=== PATIENT | female | born 1945 | race Caucasian/White ===

== ENCOUNTER 2017-10-04 18:15 | Emergency (ER) | payer MEDICARE, OTHER ==
[~2017-10-04] VITALS: Ht 165.1 cm; Wt 72.6 kg
[~2017-10-04 18:15] MED LIST: AMOCLA875 PO; BACID; CEFD300 PO; CEPH500 PO; CLARITIN10 MG PO; CLOT10 SS; CYCL10; CYCL10 PO; DEXILANT PO; DEXL60CA3 PO; DOXA4; DOXA4 PO; Dazidox10 MG PO; FOLI1 PO; Flonase 0.05% N16 GM; HYDACE25S PR; HYDACE5325 PO; HYDCHL50; HYDSUL200 PO; K-Dur10 MEQ PO; LEVFLO500 PO; LEVO750 PO; LOSA50 PO; META800; META800 PO; METO10; METO50ER; METO50ER PO; METOTREXATE; METPRE4DP PO; METTREX2.5 PO; MOMENI; NABU500; NABU500 PO; NITR100CA PO; OMEP20ER; OMEP20ER PO; OMEP40CA12 PO; OXYC5 PO; PATADAY EYE DROPS; PHENA100 PO; PHENA200 PO; POTA10T; POTA10T PO; PRED1 PO; PRED10 PO; PRED20 PO; PREG50 PO; PROM25 PO; Percocet 5-3251 EACH PO; SPIR25; SPIR25 PO; TOLT4; TOLT4 PO; VALS80; Zofran Odt4 MG PO; Zofran4 MG PO
[2017-10-04 19:05] LABS: BASOPHILS ABSOLUTE AUTO 0.04 K/mm3 (0.00-0.23); BASOPHILS PERCENT AUTO 0 % (0-2); EOSINOPHILS ABSOLUTE AUTO 0.02 K/mm3 (0.00-0.68); EOSINOPHILS PERCENT AUTO 0 % (0-6); Hematocrit 47.1 % (33.0-51.0); Hemoglobin 16.2 g/dL (11.5-16.0); IMMATURE GRAN ABSOLUTE AUTO 0.05 K/mm3 (0.00-0.10); IMMATURE GRAN PERCENT AUTO 0 % (0-1); LYMPHOCYTES ABSOLUTE AUTO 1.54 K/mm3 (0.84-5.20); LYMPHOCYTES PERCENT AUTO 13 % (21-46); MONOCYTES ABSOLUTE AUTO 0.98 K/mm3 (0.16-1.47); MONOCYTES PERCENT AUTO 8 % (4-13); Mean Corpuscular HGB 32.9 pg (26.0-34.0); Mean Corpuscular HGB Conc 34.4 g/dL (31.5-36.5); Mean Corpuscular Volume 96 fL (80-100); Mean Platelet Volume 8.8 fL (9.1-12.4); NEUTROPHILS PERCENT AUTO 79 % (41-73); Platelet Count 196 K/mm3 (150-400); RDW Coefficient Variation 14.8 % (11.7-14.2); RDW Standard Deviation 51.4 fL (35.1-46.3); Red Blood Cell Count 4.92 M/mm3 (3.80-5.20); White Blood Cell Count 12.23 K/mm3 (4.00-11.30)
[2017-10-04 19:26] LABS: Alanine Aminotransfer (ALT/SGP 15 U/L (12-78); Albumin/Globulin Ratio 1.2 (0.8-1.8); Alk Phos 39 U/L (50-136); Anion Gap 14 mmol/L (6-16); Aspartate Aminotrans (AST/SGOT 49 U/L (12-37); Bilirubin, Total 0.9 mg/dL (0.1-1.0); Blood Urea Nitrogen 11 mg/dL (8-24); Bun/Creatinine Ratio 13.8 (12.0-20.0); CO2, Blood 22 mmol/L (21-32); Chloride, Blood 102 mmol/L (98-108); Globulin, Blood 3.3 g/dL (2.2-4.0); Glomerular Filtration Rate >60 (60-); Glucose, Blood 93 mg/dL (70-99); Potassium, Blood 3.6 mmol/L (3.5-5.5); Sodium, Blood 138 mmol/L (136-145); Total Protein, Blood 7.3 g/dL (6.4-8.2)
[2017-10-04] MEDS ORDERED: POTA20PAC (23:42)
[2017-10-04] MEDS ORDERED: BENTYL PO (23:43)
[2017-10-04] MEDS ORDERED: BENEFIBER PO (23:43)
[2017-10-04] MEDS ORDERED: MAGOXI400 PO (23:44)
[2017-10-04] MEDS ORDERED: META800 PO (23:45)
[2017-10-04] MEDS ORDERED: VOLTAREN TOP (23:45)
[2017-10-04] MEDS ORDERED: PANT40 PO (23:46)
[2017-10-04] MEDS ORDERED: METTREX2.5 PO (23:47)
[2017-10-04] MEDS ORDERED: METO100ER PO (23:48)
[2017-10-04] MEDS ORDERED: FOLI1 PO (23:48)
[2017-10-04] MEDS ORDERED: NABU500 PO (23:48)
[2017-10-04] MEDS ORDERED: ALLO300 PO (23:48)
[2017-10-04] MEDS ORDERED: HYDSUL200 PO (23:49)
[2017-10-04] MEDS ORDERED: CYCL10 PO (23:50)
[2017-10-04] MEDS ORDERED: LEFL20 PO (23:50)
[2017-10-04] MEDS ORDERED: ALBU90OI6 INH (23:50)
[2017-10-04] MEDS ORDERED: SPIR25 PO (23:51)
[2017-10-04] MEDS ORDERED: PREG75 PO (23:51)
[2017-10-04 23:57] LABS: Source, Urine Clean Catch
[2017-10-05] LABS: Appearance, Urine Clear (Clear); Blood, Urine 1+ (Neg); Color, Urine Amber (P-Yellow); Glucose Qualitative, Urine 1+ (Neg); Ketones, Urine 3+ (Neg); Leukocyte Esterase, Urine 2+ (Neg); Nitrite, Urine Neg (Neg); Protein, Urine 3+ (Neg); Urobilinogen, Urine 2+ (Normal)
[2017-10-05 00:01] LABS: Bilirubin, Urine 2+ (Neg)
[2017-10-05 00:06] LABS: Red Blood Cells, Urine 0-2 /hpf (0-2); Squamous Epithelial Cells Few /hpf (Few)
[2017-10-05 00:07] LABS: Bacteria Many /hpf
[2017-10-05] MEDS ORDERED: CEPH500 PO (03:33)
[2017-10-05] MEDS ORDERED: Zofran Odt4 MG PO (03:33)
== END 2017-10-05 03:58 | disposition home or self-care (01) ==
LOC: ER 18:15
PROVIDERS: Emergency Medicine
DX: N39.0 Urinary tract infection, site not specified (principal); Z88.2 Allergy status to sulfonamides; Z88.5 Allergy status to narcotic agent; Z79.899 Other long term (current) drug therapy; Z79.52 Long term (current) use of systemic steroids; Z79.2 Long term (current) use of antibiotics; I10 Essential (primary) hypertension
CPT/HCPCS: 36415; 71046; 80053; 81001; 83605; 83690; 85025; 87040; 87086; 93005; 93010; 96361; 96374; 96375; 96376; 99284; J2405; J2550; J7030

== ENCOUNTER 2017-10-07 12:59 | Emergency (ER) | payer MEDICARE, OTHER ==
[~2017-10-07] VITALS: Ht 165.1 cm; Wt 76.2 kg
[~2017-10-07 12:59] MED LIST changes: +ALBU90OI6 INH; +ALLO300 PO; +BENEFIBER PO; +BENTYL PO; +LEFL20 PO; +MAGOXI400 PO; +METO100ER PO; +PANT40 PO; +POTA20PAC; +PREG75 PO; +VOLTAREN TOP
[2017-10-07 14:45] LABS: BASOPHILS ABSOLUTE AUTO 0.04 K/mm3 (0.00-0.23); BASOPHILS PERCENT AUTO 1 % (0-2); EOSINOPHILS ABSOLUTE AUTO 0.03 K/mm3 (0.00-0.68); EOSINOPHILS PERCENT AUTO 0 % (0-6); Hematocrit 42.6 % (33.0-51.0); Hemoglobin 14.3 g/dL (11.5-16.0); IMMATURE GRAN ABSOLUTE AUTO 0.02 K/mm3 (0.00-0.10); IMMATURE GRAN PERCENT AUTO 0 % (0-1); LYMPHOCYTES ABSOLUTE AUTO 1.45 K/mm3 (0.84-5.20); LYMPHOCYTES PERCENT AUTO 17 % (21-46); MONOCYTES ABSOLUTE AUTO 0.75 K/mm3 (0.16-1.47); MONOCYTES PERCENT AUTO 9 % (4-13); Mean Corpuscular HGB 32.5 pg (26.0-34.0); Mean Corpuscular HGB Conc 33.6 g/dL (31.5-36.5); Mean Corpuscular Volume 97 fL (80-100); Mean Platelet Volume 8.5 fL (9.1-12.4); NEUTROPHILS ABSOLUTE AUTO 6.46 K/mm3 (1.96-9.15); NEUTROPHILS PERCENT AUTO 74 % (41-73); Platelet Count 207 K/mm3 (150-400); RDW Coefficient Variation 14.7 % (11.7-14.2); RDW Standard Deviation 51.9 fL (35.1-46.3); White Blood Cell Count 8.75 K/mm3 (4.00-11.30)
[2017-10-07 14:58] LABS: Alanine Aminotransfer (ALT/SGP 16 U/L (12-78); Albumin, Blood 3.8 g/dL (3.4-5.0); Albumin/Globulin Ratio 1.1 (0.8-1.8); Alk Phos 32 U/L (50-136); Anion Gap 8 mmol/L (6-16); Aspartate Aminotrans (AST/SGOT 47 U/L (12-37); Bilirubin, Total 0.6 mg/dL (0.1-1.0); Blood Urea Nitrogen 10 mg/dL (8-24); Bun/Creatinine Ratio 13.8 (12.0-20.0); CO2, Blood 27 mmol/L (21-32); Calcium, Blood 9.1 mg/dL (8.5-10.1); Chloride, Blood 106 mmol/L (98-108); Creatinine, Blood 0.73 mg/dL (0.40-1.00); Globulin, Blood 3.4 g/dL (2.2-4.0); Glomerular Filtration Rate >60 (60-); Glucose, Blood 87 mg/dL (70-99); Potassium, Blood 3.1 mmol/L (3.5-5.5); Sodium, Blood 141 mmol/L (136-145); Total Protein, Blood 7.2 g/dL (6.4-8.2)
[2017-10-07] MEDS ORDERED: PROM25 PO (19:38)
== END 2017-10-07 20:47 | disposition home or self-care (01) ==
LOC: ER 12:59
PROVIDERS: Emergency Medicine
DX: R11.2 Nausea with vomiting, unspecified (principal); R19.7 Diarrhea, unspecified; I10 Essential (primary) hypertension; Z88.2 Allergy status to sulfonamides; Z88.5 Allergy status to narcotic agent; Z79.899 Other long term (current) drug therapy
CPT/HCPCS: 36415; 74177; 80053; 83690; 85025; 96365; 96366; 96375; 96376; 99284; J2001; J2405; J2550; J3480; J7030; Q9967

== ENCOUNTER 2017-12-04 13:43 | Emergency (ER) | payer MEDICARE, OTHER ==
[~2017-12-04] VITALS: Ht 165.1 cm; Wt 74.8 kg
[2017-12-04 14:43] LABS: BASOPHILS ABSOLUTE AUTO 0.05 K/mm3 (0.00-0.23); BASOPHILS PERCENT AUTO 0 % (0-2); EOSINOPHILS ABSOLUTE AUTO 0.03 K/mm3 (0.00-0.68); EOSINOPHILS PERCENT AUTO 0 % (0-6); Hematocrit 38.5 % (33.0-51.0); Hemoglobin 12.9 g/dL (11.5-16.0); IMMATURE GRAN ABSOLUTE AUTO 0.06 K/mm3 (0.00-0.10); IMMATURE GRAN PERCENT AUTO 0 % (0-1); LYMPHOCYTES ABSOLUTE AUTO 2.93 K/mm3 (0.84-5.20); LYMPHOCYTES PERCENT AUTO 21 % (21-46); MONOCYTES ABSOLUTE AUTO 1.21 K/mm3 (0.16-1.47); MONOCYTES PERCENT AUTO 9 % (4-13); Mean Corpuscular HGB 32.3 pg (26.0-34.0); Mean Corpuscular HGB Conc 33.5 g/dL (31.5-36.5); Mean Corpuscular Volume 96 fL (80-100); Mean Platelet Volume 9.2 fL (9.1-12.4); NEUTROPHILS ABSOLUTE AUTO 9.46 K/mm3 (1.96-9.15); NEUTROPHILS PERCENT AUTO 69 % (41-73); Platelet Count 232 K/mm3 (150-400); RDW Coefficient Variation 14.2 % (11.7-14.2); RDW Standard Deviation 50.2 fL (35.1-46.3); White Blood Cell Count 13.74 K/mm3 (4.00-11.30)
[2017-12-04 14:58] LABS: Bun/Creatinine Ratio 15.3 (12.0-20.0); C-Reactive Protein, High Sens. 0.525 mg/L (0.000-3.000); Calcium, Blood 8.6 mg/dL (8.5-10.1); Creatinine, Blood 0.98 mg/dL (0.40-1.00); Potassium, Blood 3.7 mmol/L (3.5-5.5)
[2017-12-04] MEDS ORDERED: Percocet 5-3251 EACH PO (17:27)
[2017-12-04] MEDS ORDERED: GABA300 PO (17:27)
[2017-12-04] MEDS ORDERED: LIDO700A20 TOP (17:27)
== END 2017-12-04 17:43 | disposition home or self-care (01) ==
LOC: ER 13:43
PROVIDERS: Emergency Medicine
DX: M54.16 Radiculopathy, lumbar region (principal); M16.12 Unilateral primary osteoarthritis, left hip; I10 Essential (primary) hypertension; Z88.1 Allergy status to other antibiotic agents; Z88.8 Allergy status to other drugs, medicaments and biological substances; Z88.2 Allergy status to sulfonamides; Z88.5 Allergy status to narcotic agent; Z79.899 Other long term (current) drug therapy
CPT/HCPCS: 36415; 72131; 73700; 80048; 85025; 85651; 86141; 96374; 99284; J2405

== ENCOUNTER 2017-12-13 17:04 | Inpatient (IN) | payer MEDICARE, OTHER ==
[~2017-12-13] VITALS: Ht 165.1 cm; Wt 73.5 kg
[~2017-12-13 17:04] MED LIST changes: +GABA300 PO; +LIDO700A20 TOP
[2017-12-13 18:20] LABS: BASOPHILS ABSOLUTE AUTO 0.04 K/mm3 (0.00-0.23); BASOPHILS PERCENT AUTO 0 % (0-2); EOSINOPHILS ABSOLUTE AUTO 0.02 K/mm3 (0.00-0.68); EOSINOPHILS PERCENT AUTO 0 % (0-6); Hematocrit 44.1 % (33.0-51.0); Hemoglobin 15.4 g/dL (11.5-16.0); IMMATURE GRAN ABSOLUTE AUTO 0.08 K/mm3 (0.00-0.10); IMMATURE GRAN PERCENT AUTO 1 % (0-1); LYMPHOCYTES ABSOLUTE AUTO 1.48 K/mm3 (0.84-5.20); LYMPHOCYTES PERCENT AUTO 10 % (21-46); MONOCYTES ABSOLUTE AUTO 1.23 K/mm3 (0.16-1.47); MONOCYTES PERCENT AUTO 8 % (4-13); Mean Corpuscular HGB 32.5 pg (26.0-34.0); Mean Corpuscular HGB Conc 34.9 g/dL (31.5-36.5); Mean Platelet Volume 8.8 fL (9.1-12.4); NEUTROPHILS ABSOLUTE AUTO 12.03 K/mm3 (1.96-9.15); NEUTROPHILS PERCENT AUTO 81 % (41-73); Platelet Count 271 K/mm3 (150-400); RDW Coefficient Variation 13.6 % (11.7-14.2); RDW Standard Deviation 46.5 fL (35.1-46.3); Red Blood Cell Count 4.74 M/mm3 (3.80-5.20); White Blood Cell Count 14.88 K/mm3 (4.00-11.30)
[2017-12-13 18:22] LABS: Mean Corpuscular Volume 93 fL (80-100)
[2017-12-13 18:51] LABS: Alanine Aminotransfer (ALT/SGP 16 U/L (12-78); Albumin, Blood 3.5 g/dL (3.4-5.0); Alk Phos 48 U/L (50-136); Anion Gap 13 mmol/L (6-16); Aspartate Aminotrans (AST/SGOT 42 U/L (12-37); Bilirubin, Total 0.7 mg/dL (0.1-1.0); Blood Urea Nitrogen 12 mg/dL (8-24); Bun/Creatinine Ratio 13.2 (12.0-20.0); CO2, Blood 25 mmol/L (21-32); Calcium, Blood 9.5 mg/dL (8.5-10.1); Chloride, Blood 94 mmol/L (98-108); Creatinine, Blood 0.91 mg/dL (0.40-1.00); Globulin, Blood 3.5 g/dL (2.2-4.0); Glomerular Filtration Rate >60 (60-); Glucose, Blood 99 mg/dL (70-99); Potassium, Blood 3.8 mmol/L (3.5-5.5); Sodium, Blood 132 mmol/L (136-145)
[2017-12-13 18:53] LABS: Troponin I 0.183 ng/mL (0.000-0.040)
[2017-12-13 21:59] LABS: Troponin I 0.196 ng/mL (0.000-0.040)
[2017-12-13] MEDS ORDERED: POTCHL20ER PO (22:06)
[2017-12-13] MEDS ORDERED: ONDA8 PO (22:12)
[2017-12-13] MEDS ORDERED: MORP15ER PO (22:13)
[2017-12-14 05:48] LABS: Hematocrit 41.8 % (33.0-51.0); Hemoglobin 14.4 g/dL (11.5-16.0); Mean Corpuscular HGB 32.5 pg (26.0-34.0); Mean Corpuscular HGB Conc 34.4 g/dL (31.5-36.5); Mean Corpuscular Volume 94 fL (80-100); Mean Platelet Volume 8.7 fL (9.1-12.4); Platelet Count 236 K/mm3 (150-400); RDW Coefficient Variation 13.7 % (11.7-14.2); Red Blood Cell Count 4.43 M/mm3 (3.80-5.20); White Blood Cell Count 10.77 K/mm3 (4.00-11.30)
[2017-12-14 06:09] LABS: CPK Creatine Kinase 155 U/L (26-193); Troponin I 0.161 ng/mL (0.000-0.040)
[2017-12-14 06:10] LABS: Alanine Aminotransfer (ALT/SGP 14 U/L (12-78); Albumin, Blood 3.1 g/dL (3.4-5.0); Alk Phos 40 U/L (50-136); Anion Gap 10 mmol/L (6-16); Aspartate Aminotrans (AST/SGOT 44 U/L (12-37); Bilirubin, Total 0.5 mg/dL (0.1-1.0); Blood Urea Nitrogen 15 mg/dL (8-24); Bun/Creatinine Ratio 16.5 (12.0-20.0); CO2, Blood 27 mmol/L (21-32); Calcium, Blood 9.1 mg/dL (8.5-10.1); Chloride, Blood 95 mmol/L (98-108); Creatinine, Blood 0.91 mg/dL (0.40-1.00); Glomerular Filtration Rate >60 (60-); Glucose, Blood 82 mg/dL (70-99); Potassium, Blood 3.5 mmol/L (3.5-5.5); Sodium, Blood 132 mmol/L (136-145); Total Protein, Blood 6.1 g/dL (6.4-8.2)
[2017-12-15 14:49] LABS: Source, Urine Clean Catch
[2017-12-15 14:53] LABS: Bilirubin, Urine Neg (Neg); Blood, Urine Neg (Neg); Glucose Qualitative, Urine Neg (Neg); Ketones, Urine Neg (Neg); Leukocyte Esterase, Urine 2+ (Neg); Nitrite, Urine Neg (Neg); Protein, Urine 1+ (Neg); Specific Gravity, Urine 1.015 (1.003-1.022); Urobilinogen, Urine NORM (Normal)
[2017-12-15 15:09] LABS: Appearance, Urine Clear (Clear); Bacteria Few /hpf; Color, Urine Yellow (P-Yellow); Red Blood Cells, Urine 0-2 /hpf (0-2); Squamous Epithelial Cells Few /hpf (Few); White Blood Cells, Urine 25-50 /hpf (0-5)
[2017-12-16] MEDS ORDERED: Oxycodone-Apap1 EAC3 (12:14)
[2017-12-16] MEDS ORDERED: DOCU100 (12:15)
[2017-12-16] MEDS ORDERED: SENN187 (12:16)
== END 2017-12-16 14:11 | disposition home or self-care (01) | DRG 551 ==
LOC: ER 17:04 → ICUW 17:05 → ER 17:05 → MEDS 20:24
PROVIDERS: Emergency Medicine; Internal Medicine
DX: M47.26 Other spondylosis with radiculopathy, lumbar region (principal); J96.01 Acute respiratory failure with hypoxia; E87.1 Hypo-osmolality and hyponatremia; T40.601A Poisoning by unspecified narcotics, accidental (unintentional), initial encounter; M51.16 Intervertebral disc disorders with radiculopathy, lumbar region; M32.9 Systemic lupus erythematosus, unspecified; J45.909 Unspecified asthma, uncomplicated; G47.33 Obstructive sleep apnea (adult) (pediatric); E86.0 Dehydration; M06.9 Rheumatoid arthritis, unspecified; R11.2 Nausea with vomiting, unspecified; R79.89 Other specified abnormal findings of blood chemistry; I10 Essential (primary) hypertension; M79.7 Fibromyalgia; K58.9 Irritable bowel syndrome, unspecified; R51 Headache; Z79.891 Long term (current) use of opiate analgesic; Z79.899 Other long term (current) drug therapy
CPT/HCPCS: 36415; 80053; 81001; 82550; 83690; 84484; 85025; 85027; 87077; 87086; 87186; 93005; 93010; 94640; 94760; 96361; 96374; 96375; 97110; 97140; 97162; 97165; 97530; 97535; 99285; G8978; G8979; G8987; G8988; G8989; J1200; J1650; J1885; J2765; J3010; J7120

== ENCOUNTER 2018-01-12 13:41 | Day surgery (SDC) | payer MEDICARE, OTHER ==
[~2018-01-12] VITALS: Ht 165.1 cm; Wt 70.9 kg
[~2018-01-12 13:41] MED LIST changes: +DOCU100; +FENT50TP TOP; +LIDOCAINE PAIN1 EACH TOP; +MAGCHL64ER; +MORP15ER PO; +ONDA8 PO; +Oxycodone-Apap1 EAC3; +POTCHL20ER PO; +PRED5 PO; +Prednisone20 MG PO; +SENN187
== END 2018-01-12 15:10 | disposition home or self-care (01) ==
LOC: ORSCSDS 13:41
PROVIDERS: Orthopaedic Surgery
PROC: 3E0R33Z Introduction of Anti-inflammatory into Spinal Canal, Percutaneous Approach (ICD-10-PCS; principal; 2018-01-12 15:00)
DX: M54.16 Radiculopathy, lumbar region (principal); M51.26 Other intervertebral disc displacement, lumbar region; Z79.01 Long term (current) use of anticoagulants; Z79.899 Other long term (current) drug therapy
CPT/HCPCS: J1040

== ENCOUNTER 2018-01-15 10:27 | Emergency (ER) | payer MEDICARE, OTHER ==
[~2018-01-15] VITALS: Ht 165.1 cm; Wt 70.3 kg
[2018-01-15] MEDS ORDERED: Dicyclomine HCl10 MG PO (10:49)
[2018-01-15] MEDS ORDERED: PROM25S PR (10:49)
[2018-01-15 10:55] LABS: BASOPHILS ABSOLUTE AUTO 0.03 K/mm3 (0.00-0.23); BASOPHILS PERCENT AUTO 0 % (0-2); EOSINOPHILS ABSOLUTE AUTO 0.02 K/mm3 (0.00-0.68); EOSINOPHILS PERCENT AUTO 0 % (0-6); Hematocrit 36.7 % (33.0-51.0); Hemoglobin 12.2 g/dL (11.5-16.0); IMMATURE GRAN ABSOLUTE AUTO 0.07 K/mm3 (0.00-0.10); IMMATURE GRAN PERCENT AUTO 1 % (0-1); LYMPHOCYTES ABSOLUTE AUTO 1.04 K/mm3 (0.84-5.20); LYMPHOCYTES PERCENT AUTO 7 % (21-46); MONOCYTES ABSOLUTE AUTO 0.98 K/mm3 (0.16-1.47); MONOCYTES PERCENT AUTO 7 % (4-13); Mean Corpuscular HGB 32.2 pg (26.0-34.0); Mean Corpuscular HGB Conc 33.2 g/dL (31.5-36.5); Mean Corpuscular Volume 97 fL (80-100); Mean Platelet Volume 8.8 fL (9.1-12.4); NEUTROPHILS ABSOLUTE AUTO 11.85 K/mm3 (1.96-9.15); NEUTROPHILS PERCENT AUTO 85 % (41-73); Platelet Count 217 K/mm3 (150-400); RDW Coefficient Variation 14.1 % (11.7-14.2); RDW Standard Deviation 49.4 fL (35.1-46.3); Red Blood Cell Count 3.79 M/mm3 (3.80-5.20); White Blood Cell Count 13.99 K/mm3 (4.00-11.30)
[2018-01-15 11:12] LABS: Albumin, Blood 3.6 g/dL (3.4-5.0); Albumin/Globulin Ratio 1.3 (0.8-1.8); Bilirubin, Total 0.5 mg/dL (0.1-1.0); Bun/Creatinine Ratio 19.8 (12.0-20.0); Calcium, Blood 8.5 mg/dL (8.5-10.1); Creatinine, Blood 1.21 mg/dL (0.40-1.00); Globulin, Blood 2.7 g/dL (2.2-4.0); Potassium, Blood 3.9 mmol/L (3.5-5.5); Total Protein, Blood 6.3 g/dL (6.4-8.2); Troponin I 0.028 ng/mL (0.000-0.040)
== END 2018-01-15 14:24 | disposition home or self-care (01) ==
LOC: ER 10:27
PROVIDERS: Emergency Medicine
DX: R00.2 Palpitations (principal); R07.9 Chest pain, unspecified; I10 Essential (primary) hypertension; Z88.8 Allergy status to other drugs, medicaments and biological substances; Z88.2 Allergy status to sulfonamides; Z88.1 Allergy status to other antibiotic agents; Z88.5 Allergy status to narcotic agent; Z79.899 Other long term (current) drug therapy; Z79.52 Long term (current) use of systemic steroids
CPT/HCPCS: 71046; 80053; 84484; 85025; 93005; 93010; 99285-25

== ENCOUNTER 2018-03-24 10:18 | Emergency (ER) | payer MEDICARE, OTHER ==
[~2018-03-24] VITALS: Ht 165.1 cm; Wt 68.0 kg
[~2018-03-24 10:18] MED LIST changes: +Dicyclomine HCl10 MG PO; +PROM25S PR
[2018-03-24 10:51] LABS: BASOPHILS ABSOLUTE AUTO 0.01 K/mm3 (0.00-0.23); BASOPHILS PERCENT AUTO 0 % (0-2); EOSINOPHILS PERCENT AUTO 0 % (0-6); Hematocrit 35.8 % (33.0-51.0); Hemoglobin 11.7 g/dL (11.5-16.0); IMMATURE GRAN ABSOLUTE AUTO 0.04 K/mm3 (0.00-0.10); IMMATURE GRAN PERCENT AUTO 1 % (0-1); LYMPHOCYTES ABSOLUTE AUTO 0.98 K/mm3 (0.84-5.20); LYMPHOCYTES PERCENT AUTO 13 % (21-46); MONOCYTES ABSOLUTE AUTO 0.46 K/mm3 (0.16-1.47); MONOCYTES PERCENT AUTO 6 % (4-13); Mean Corpuscular HGB 33.6 pg (26.0-34.0); Mean Corpuscular HGB Conc 32.7 g/dL (31.5-36.5); Mean Corpuscular Volume 103 fL (80-100); Mean Platelet Volume 9.4 fL (9.1-12.4); NEUTROPHILS ABSOLUTE AUTO 6.22 K/mm3 (1.96-9.15); NEUTROPHILS PERCENT AUTO 81 % (41-73); Platelet Count 173 K/mm3 (150-400); RDW Coefficient Variation 15.6 % (11.7-14.2); RDW Standard Deviation 58.6 fL (35.1-46.3); Red Blood Cell Count 3.48 M/mm3 (3.80-5.20); White Blood Cell Count 7.71 K/mm3 (4.00-11.30)
[2018-03-24] MEDS ORDERED: Voltaren100 GM TOP (11:07)
[2018-03-24] MEDS ORDERED: LIDO700A20 TOP (11:07)
[2018-03-24] MEDS ORDERED: PROM25 PO (11:08)
[2018-03-24] MEDS ORDERED: COLE625 PO (11:08)
[2018-03-24] MEDS ORDERED: METTREX2.5 PO (11:09)
[2018-03-24 11:10] LABS: Albumin, Blood 3.5 g/dL (3.4-5.0); Albumin/Globulin Ratio 1.2 (0.8-1.8); Bun/Creatinine Ratio 9.6 (12.0-20.0); Calcium, Blood 9.4 mg/dL (8.5-10.1); Creatinine, Blood 1.14 mg/dL (0.40-1.00); Globulin, Blood 2.9 g/dL (2.2-4.0); Potassium, Blood 4.3 mmol/L (3.5-5.5); Total Protein, Blood 6.4 g/dL (6.4-8.2)
[2018-03-24] MEDS ORDERED: CEPH500 PO (13:02)
== END 2018-03-24 13:21 | disposition home or self-care (01) ==
LOC: ER 10:18
PROVIDERS: Emergency Medicine
DX: N39.0 Urinary tract infection, site not specified (principal); R11.2 Nausea with vomiting, unspecified; Z88.2 Allergy status to sulfonamides; Z88.8 Allergy status to other drugs, medicaments and biological substances; Z88.5 Allergy status to narcotic agent; Z88.1 Allergy status to other antibiotic agents; Z79.899 Other long term (current) drug therapy; Z79.52 Long term (current) use of systemic steroids; I10 Essential (primary) hypertension; F17.200 Nicotine dependence, unspecified, uncomplicated
CPT/HCPCS: 80053; 83690; 85025; 96361; 96365; 96375; 99284-25; J0696; J2765; J7030

== ENCOUNTER 2018-03-25 09:55 | Inpatient (IN) | payer MEDICARE, OTHER ==
[~2018-03-25] VITALS: Ht 165.1 cm; Wt 69.2 kg
[~2018-03-25 09:55] MED LIST changes: +COLE625 PO; +Voltaren100 GM TOP
[2018-03-25 10:58] LABS: BASOPHILS ABSOLUTE AUTO 0.04 K/mm3 (0.00-0.23); BASOPHILS PERCENT AUTO 0 % (0-2); EOSINOPHILS PERCENT AUTO 0 % (0-6); Hematocrit 38.5 % (33.0-51.0); Hemoglobin 12.7 g/dL (11.5-16.0); IMMATURE GRAN ABSOLUTE AUTO 0.05 K/mm3 (0.00-0.10); IMMATURE GRAN PERCENT AUTO 1 % (0-1); LYMPHOCYTES PERCENT AUTO 9 % (21-46); MONOCYTES ABSOLUTE AUTO 0.65 K/mm3 (0.16-1.47); MONOCYTES PERCENT AUTO 6 % (4-13); Mean Corpuscular HGB 33.2 pg (26.0-34.0); Mean Corpuscular Volume 101 fL (80-100); Mean Platelet Volume 9.3 fL (9.1-12.4); NEUTROPHILS PERCENT AUTO 84 % (41-73); Platelet Count 209 K/mm3 (150-400); RDW Coefficient Variation 15.6 % (11.7-14.2); RDW Standard Deviation 57.8 fL (35.1-46.3); Red Blood Cell Count 3.83 M/mm3 (3.80-5.20); White Blood Cell Count 11.04 K/mm3 (4.00-11.30)
[2018-03-25 11:18] LABS: Albumin, Blood 3.9 g/dL (3.4-5.0); Albumin/Globulin Ratio 1.2 (0.8-1.8); Bilirubin, Total 0.9 mg/dL (0.1-1.0); Calcium, Blood 9.7 mg/dL (8.5-10.1); Globulin, Blood 3.2 g/dL (2.2-4.0); Potassium, Blood 3.7 mmol/L (3.5-5.5); Total Protein, Blood 7.1 g/dL (6.4-8.2)
[2018-03-26 03:40] LABS: Hemoglobin 9.8 g/dL (11.5-16.0); Mean Corpuscular HGB Conc 32.7 g/dL (31.5-36.5); Mean Platelet Volume 9.1 fL (9.1-12.4); Platelet Count 173 K/mm3 (150-400); RDW Coefficient Variation 15.7 % (11.7-14.2); RDW Standard Deviation 59.6 fL (35.1-46.3); Red Blood Cell Count 2.88 M/mm3 (3.80-5.20); White Blood Cell Count 7.46 K/mm3 (4.00-11.30)
[2018-03-26 03:41] LABS: Mean Corpuscular Volume 104 fL (80-100)
[2018-03-26 04:02] LABS: Anion Gap 9 mmol/L (6-16); Blood Urea Nitrogen 7 mg/dL (8-24); CO2, Blood 23 mmol/L (21-32); Chloride, Blood 111 mmol/L (98-108); Creatinine, Blood 0.78 mg/dL (0.40-1.00); Glomerular Filtration Rate >60 (60-); Glucose, Blood 72 mg/dL (70-99); Potassium, Blood 3.6 mmol/L (3.5-5.5); Sodium, Blood 143 mmol/L (136-145)
[2018-03-26 04:03] LABS: Calcium, Blood 7.6 mg/dL (8.5-10.1)
[2018-03-28 04:55] LABS: Hematocrit 30.4 % (33.0-51.0); Hemoglobin 9.7 g/dL (11.5-16.0); Mean Corpuscular HGB 33.3 pg (26.0-34.0); Mean Corpuscular HGB Conc 31.9 g/dL (31.5-36.5); Mean Corpuscular Volume 105 fL (80-100); Mean Platelet Volume 9.5 fL (9.1-12.4); Platelet Count 150 K/mm3 (150-400); RDW Coefficient Variation 15.8 % (11.7-14.2); RDW Standard Deviation 60.3 fL (35.1-46.3); Red Blood Cell Count 2.91 M/mm3 (3.80-5.20); White Blood Cell Count 8.29 K/mm3 (4.00-11.30)
[2018-03-28 05:15] LABS: Anion Gap 9 mmol/L (6-16); Blood Urea Nitrogen 12 mg/dL (8-24); Bun/Creatinine Ratio 14.5 (12.0-20.0); CO2, Blood 24 mmol/L (21-32); Calcium, Blood 7.9 mg/dL (8.5-10.1); Chloride, Blood 107 mmol/L (98-108); Creatinine, Blood 0.83 mg/dL (0.40-1.00); Glomerular Filtration Rate >60 (60-); Glucose, Blood 113 mg/dL (70-99); Potassium, Blood 3.4 mmol/L (3.5-5.5); Sodium, Blood 140 mmol/L (136-145)
[2018-03-29 05:42] LABS: BASOPHILS ABSOLUTE AUTO 0.03 K/mm3 (0.00-0.23); BASOPHILS PERCENT AUTO 0 % (0-2); EOSINOPHILS ABSOLUTE AUTO 0.03 K/mm3 (0.00-0.68); EOSINOPHILS PERCENT AUTO 0 % (0-6); Hematocrit 29.7 % (33.0-51.0); Hemoglobin 9.3 g/dL (11.5-16.0); IMMATURE GRAN ABSOLUTE AUTO 0.03 K/mm3 (0.00-0.10); IMMATURE GRAN PERCENT AUTO 0 % (0-1); LYMPHOCYTES ABSOLUTE AUTO 2.03 K/mm3 (0.84-5.20); LYMPHOCYTES PERCENT AUTO 29 % (21-46); MONOCYTES ABSOLUTE AUTO 0.52 K/mm3 (0.16-1.47); MONOCYTES PERCENT AUTO 8 % (4-13); Mean Corpuscular HGB 32.7 pg (26.0-34.0); Mean Corpuscular HGB Conc 31.3 g/dL (31.5-36.5); Mean Corpuscular Volume 105 fL (80-100); Mean Platelet Volume 9.7 fL (9.1-12.4); NEUTROPHILS ABSOLUTE AUTO 4.32 K/mm3 (1.96-9.15); NEUTROPHILS PERCENT AUTO 62 % (41-73); Platelet Count 160 K/mm3 (150-400); RDW Coefficient Variation 16.2 % (11.7-14.2); RDW Standard Deviation 61.8 fL (35.1-46.3); Red Blood Cell Count 2.84 M/mm3 (3.80-5.20); White Blood Cell Count 6.96 K/mm3 (4.00-11.30)
[2018-03-29 05:57] LABS: Albumin, Blood 2.9 g/dL (3.4-5.0); Anion Gap 7 mmol/L (6-16); Blood Urea Nitrogen 9 mg/dL (8-24); Bun/Creatinine Ratio 9.9 (12.0-20.0); CO2, Blood 27 mmol/L (21-32); Calcium, Blood 8.4 mg/dL (8.5-10.1); Chloride, Blood 108 mmol/L (98-108); Creatinine, Blood 0.91 mg/dL (0.40-1.00); Glomerular Filtration Rate >60 (60-); Glucose, Blood 74 mg/dL (70-99); Potassium, Blood 3.4 mmol/L (3.5-5.5); Sodium, Blood 142 mmol/L (136-145)
[2018-03-30 05:48] LABS: BASOPHILS ABSOLUTE AUTO 0.02 K/mm3 (0.00-0.23); BASOPHILS PERCENT AUTO 0 % (0-2); EOSINOPHILS ABSOLUTE AUTO 0.01 K/mm3 (0.00-0.68); EOSINOPHILS PERCENT AUTO 0 % (0-6); Hematocrit 28.3 % (33.0-51.0); Hemoglobin 9.1 g/dL (11.5-16.0); IMMATURE GRAN ABSOLUTE AUTO 0.02 K/mm3 (0.00-0.10); IMMATURE GRAN PERCENT AUTO 0 % (0-1); LYMPHOCYTES ABSOLUTE AUTO 1.02 K/mm3 (0.84-5.20); LYMPHOCYTES PERCENT AUTO 16 % (21-46); MONOCYTES ABSOLUTE AUTO 0.59 K/mm3 (0.16-1.47); MONOCYTES PERCENT AUTO 9 % (4-13); Mean Corpuscular HGB 33.2 pg (26.0-34.0); Mean Corpuscular HGB Conc 32.2 g/dL (31.5-36.5); Mean Corpuscular Volume 103 fL (80-100); Mean Platelet Volume 9.6 fL (9.1-12.4); NEUTROPHILS ABSOLUTE AUTO 4.91 K/mm3 (1.96-9.15); NEUTROPHILS PERCENT AUTO 75 % (41-73); Platelet Count 153 K/mm3 (150-400); RDW Coefficient Variation 15.9 % (11.7-14.2); RDW Standard Deviation 59.9 fL (35.1-46.3); Red Blood Cell Count 2.74 M/mm3 (3.80-5.20); White Blood Cell Count 6.57 K/mm3 (4.00-11.30)
[2018-03-30 06:07] LABS: Anion Gap 9 mmol/L (6-16); Blood Urea Nitrogen 7 mg/dL (8-24); Bun/Creatinine Ratio 7.8 (12.0-20.0); CO2, Blood 25 mmol/L (21-32); Calcium, Blood 8.3 mg/dL (8.5-10.1); Chloride, Blood 108 mmol/L (98-108); Creatinine, Blood 0.89 mg/dL (0.40-1.00); Glomerular Filtration Rate >60 (60-); Glucose, Blood 106 mg/dL (70-99); Potassium, Blood 3.4 mmol/L (3.5-5.5); Sodium, Blood 142 mmol/L (136-145)
[2018-03-30] MEDS ORDERED: METTREX2.5 PO (12:59)
[2018-03-30] MEDS ORDERED: LIDO700A20 TOP (13:00)
[2018-03-30] MEDS ORDERED: GAVILAX17 GM PO (13:01)
[2018-03-30] MEDS ORDERED: ONDA4ODT (13:01)
== END 2018-03-30 13:27 | disposition home health service (06) | DRG 872 ==
LOC: DELPENDDIS → ER 09:55 → MEDS 12:36 → PCU 12:36 → MEDS 03-26 12:48 → ENPENDDIS 03-28 07:58 → MEDS 03-29 02:58 → ENPENDDIS 03-30 10:30 → MEDS 03-30 13:27
PROVIDERS: Emergency Medicine; Family Medicine; Internal Medicine; Internal Medicine Gastroenterology
PROC: 0DB98ZX Excision of Duodenum, Via Natural or Artificial Opening Endoscopic, Diagnostic (ICD-10-PCS; principal; 2018-03-29 17:45)
PROC: 0DB68ZX Excision of Stomach, Via Natural or Artificial Opening Endoscopic, Diagnostic (ICD-10-PCS; 2018-03-29 17:45)
DX: A41.51 Sepsis due to Escherichia coli [E. coli] (principal); N39.0 Urinary tract infection, site not specified; I10 Essential (primary) hypertension; E87.6 Hypokalemia; E83.39 Other disorders of phosphorus metabolism; M32.9 Systemic lupus erythematosus, unspecified; G89.4 Chronic pain syndrome; M79.7 Fibromyalgia; M06.9 Rheumatoid arthritis, unspecified; M10.9 Gout, unspecified; R65.20 Severe sepsis without septic shock; D50.9 Iron deficiency anemia, unspecified; D63.8 Anemia in other chronic diseases classified elsewhere; M81.0 Age-related osteoporosis without current pathological fracture; J45.909 Unspecified asthma, uncomplicated; G47.33 Obstructive sleep apnea (adult) (pediatric); R11.2 Nausea with vomiting, unspecified; K59.03 Drug induced constipation; T40.605A Adverse effect of unspecified narcotics, initial encounter; Z66 Do not resuscitate; K31.7 Polyp of stomach and duodenum; E66.9 Obesity, unspecified; Z68.25 Body mass index [BMI] 25.0-25.9, adult; Z88.5 Allergy status to narcotic agent; Z88.2 Allergy status to sulfonamides; Z88.8 Allergy status to other drugs, medicaments and biological substances; Z79.52 Long term (current) use of systemic steroids; Z79.899 Other long term (current) drug therapy
CPT/HCPCS: 36415; 74177; 80048; 80053; 80069; 83605; 85025; 85027; 87040; 87493; 93005; 93010; 94640; 94760; 96361; 96374; 96376; 97110; 97116; 97161; 97165; 97530; 99285-25; G8978; G8979; G8987; G8988; G8989; J0696; J1650; J2212; J2405; J7030; J7060; J7120; J8610; Q9967

== ENCOUNTER → 2018-07-20 | Outpatient (CLI) | payer MEDICARE, OTHER ==
[~2018-07-20] MED LIST changes: +ACETAMINOPHEN500 MG PO; +GAVILAX17 GM PO; +ONDA4ODT PO
== END | disposition home or self-care (01) ==
LOC: LAB SHORT 12:25 → PLD 12:25
DX: B07.8 Other viral warts (principal)
CPT/HCPCS: 88305

== ENCOUNTER → 2019-02-21 | Outpatient (CLI) | payer MEDICARE, OTHER ==
[2019-02-22 14:16] LABS: Adenovirus F 40/41 Not Detected (NOT DETECT); Astrovirus Not Detected (NOT DETECT); Campylobacter Sp Not Detected (NOT DETECT); Cryptosporidium Not Detected (NOT DETECT); Cyclospora Cayetanensis Not Detected (NOT DETECT); E. Coli O157 Not Detected (NOT DETECT); Entamoeba Histolytica Not Detected (NOT DETECT); Enteroaggregative E. coli-EAEC Not Detected (NOT DETECT); Enteropathogenic E. coli-EPEC Not Detected (NOT DETECT); Enterotoxigenic E. coli-ETEC Not Detected (NOT DETECT); Giardia Lamblia Not Detected (NOT DETECT); Norovirus GI/GII Not Detected (NOT DETECT); Plesiomonas Shigelloides Not Detected (NOT DETECT); Rotavirus A Not Detected (NOT DETECT); Salmonella Sp Not Detected (NOT DETECT); Sapovirus Not Detected (NOT DETECT); Shiga Toxin-prod E. coli-STEC Not Detected (NOT DETECT); Shigella/Enteroin E. coli-EIEC Not Detected (NOT DETECT); Vibrio Cholerae Not Detected (NOT DETECT); Vibrio Sp Not Detected (NOT DETECT); Yersinia Enterocolitica Not Detected (NOT DETECT)
== END | disposition home or self-care (01) ==
LOC: LAB 18:40 → LAB SHORT 18:40 → LAB FUT 02-21 11:45
PROVIDERS: Internal Medicine
DX: R19.7 Diarrhea, unspecified (principal); R10.9 Unspecified abdominal pain
CPT/HCPCS: 0097U

== ENCOUNTER 2019-10-27 13:07 | Inpatient (IN) | payer MEDICARE, OTHER ==
[~2019-10-27] VITALS: Ht 165.1 cm; Wt 70.0 kg
[~2019-10-27 13:07] MED LIST changes: -ALBU90OI6 INH; -ALLO300 PO; -Dicyclomine HCl10 MG PO; -LEFL20 PO; -METO100ER PO; -PANT40 PO; -PRED5 PO; -PREG75 PO
[2019-10-27 13:56] LABS: Hematocrit 36.7 % (33.0-51.0); Hemoglobin 11.9 g/dL (11.5-16.0); Mean Corpuscular HGB 33.2 pg (26.0-34.0); Mean Corpuscular HGB Conc 32.4 g/dL (31.5-36.5); Mean Corpuscular Volume 103 fL (80-100); Mean Platelet Volume 9.7 fL (9.1-12.4); Platelet Count 140 K/mm3 (150-400); RDW Coefficient Variation 14.9 % (11.7-14.2); RDW Standard Deviation 56.4 fL (35.1-46.3); Red Blood Cell Count 3.58 M/mm3 (3.80-5.20); White Blood Cell Count 10.81 K/mm3 (4.00-11.30)
[2019-10-27 14:15] LABS: BAND PERCENT MAN 11 % (0-8); BASOPHILS PERCENT MAN 0 % (0-2); EOSINOPHILS ABSOLUTE MAN 0.21 K/mm3 (0.00-0.68); EOSINOPHILS PERCENT MAN 2 % (0-6); LYMPHOCYTES ABSOLUTE MAN 0.54 K/mm3 (0.84-5.20); LYMPHOCYTES PERCENT MAN 5 % (21-46); MONOCYTES PERCENT MAN 0 % (4-13); NEUTROPHILS ABSOLUTE MAN 10.05 K/mm3 (1.96-9.15); SEG NEUTROPHILS PERCENT MAN 82 % (41-73); TOTAL CELLS COUNTED 100
[2019-10-27 14:43] LABS: Alanine Aminotransfer (ALT/SGP 14 U/L (12-78); Albumin, Blood 2.2 g/dL (3.4-5.0); Albumin/Globulin Ratio 0.5 (0.8-1.8); Alk Phos 150 U/L (50-136); Anion Gap 12 mmol/L (6-16); Aspartate Aminotrans (AST/SGOT 29 U/L (12-37); Blood Urea Nitrogen 47 mg/dL (8-24); Bun/Creatinine Ratio 15.9 (12.0-20.0); CO2, Blood 19 mmol/L (21-32); Chloride, Blood 104 mmol/L (98-108); Creatinine, Blood 2.95 mg/dL (0.40-1.00); Globulin, Blood 4.4 g/dL (2.2-4.0); Glomerular Filtration Rate 17 (60-); Glucose, Blood 72 mg/dL (70-99); Potassium, Blood 4.8 mmol/L (3.5-5.5); Sodium, Blood 135 mmol/L (136-145); Total Protein, Blood 6.6 g/dL (6.4-8.2)
[2019-10-27 14:45] LABS: Troponin I <0.015 ng/mL (0.000-0.040)
[2019-10-27] MEDS ORDERED: PANT40 PO (14:53)
[2019-10-27] MEDS ORDERED: ALLO300 PO (14:54)
[2019-10-27] MEDS ORDERED: METO50ER PO (14:55)
[2019-10-27] MEDS ORDERED: HYDSUL200 PO (14:55)
[2019-10-27] MEDS ORDERED: Leflunomide10 MG PO (14:55)
[2019-10-27] MEDS ORDERED: Dicyclomine HCl10 MG PO (14:56)
[2019-10-27] MEDS ORDERED: ALBU90OI6 INH (14:56)
[2019-10-27] MEDS ORDERED: METTREX2.5 PO (14:57)
[2019-10-27] MEDS ORDERED: LISINOPRIL2.5 MG PO (14:58)
[2019-10-27] MEDS ORDERED: Aldactazide 251 EACH PO (15:02)
[2019-10-27] MEDS ORDERED: Klor-Con 1010 MEQ PO (15:03)
[2019-10-27] MEDS ORDERED: FOLI1 PO (15:17)
[2019-10-27] MEDS ORDERED: PRED1 PO (15:17)
[2019-10-27] MEDS ORDERED: CYCL10 PO (15:23)
[2019-10-27] MEDS ORDERED: METAXALL800 MG PO (15:24)
[2019-10-27] MEDS ORDERED: NABU500 PO (15:24)
[2019-10-27] MEDS ORDERED: PREG75 PO (15:28)
[2019-10-27] MEDS ORDERED: Fentanyl1 EAC4 TD (15:28)
[2019-10-27] MEDS ORDERED: DICL75ER PO (15:30)
[2019-10-27 16:57] LABS: Adenovirus Not Detected (NOT DETECT); Bordetella pertussis Not Detected (NOT DETECT); Chlamydophila pneumoniae Not Detected (NOT DETECT); Coronavirus 229E Not Detected (NOT DETECT); Coronavirus HKU1 Not Detected (NOT DETECT); Coronavirus NL63 Not Detected (NOT DETECT); Coronavirus OC43 Not Detected (NOT DETECT); Human Metapneumovirus Not Detected (NOT DETECT); Human Rhinovirus/Enterovirus Not Detected (NOT DETECT); Influenza A/2009-H1 Not Detected (NOT DETECT); Influenza A/H1 Not Detected (NOT DETECT); Influenza A/H3 Not Detected (NOT DETECT); Influenza B Not Detected (NOT DETECT); Mycoplasma pneumoniae Not Detected (NOT DETECT); Parainfluenza Virus 1 Not Detected (NOT DETECT); Parainfluenza Virus 2 Not Detected (NOT DETECT); Parainfluenza Virus 3 Not Detected (NOT DETECT); Parainfluenza Virus 4 Not Detected (NOT DETECT); Respiratory Syncytial Virus Not Detected (NOT DETECT)
[2019-10-27 18:27] LABS: Source, Urine Clean Catch
[2019-10-27 18:33] LABS: Bilirubin, Urine Neg (Neg); Blood, Urine 1+ (Neg); Glucose Qualitative, Urine Neg (Neg); Ketones, Urine 1+ (Neg); Leukocyte Esterase, Urine 2+ (Neg); Nitrite, Urine Pos (Neg); Protein, Urine 2+ (Neg); Specific Gravity, Urine 1.015 (1.003-1.022); Urobilinogen, Urine 1+ (Normal)
[2019-10-27 18:50] LABS: Appearance, Urine Hazy (Clear); Color, Urine Yellow (P-Yellow)
[2019-10-27 18:51] LABS: Squamous Epithelial Cells Few /hpf (Few)
[2019-10-27 18:52] LABS: Amorphous Light (0-Heavy); Bacteria Many /hpf; Granular Casts 0-2 /lpf (0); Red Blood Cells, Urine 0-2 /hpf (0-2)
[2019-10-28 05:00] LABS: BASOPHILS ABSOLUTE AUTO 0.04 K/mm3 (0.00-0.23); BASOPHILS PERCENT AUTO 0 % (0-2); Hematocrit 31.6 % (33.0-51.0); Hemoglobin 10.4 g/dL (11.5-16.0); LYMPHOCYTES ABSOLUTE AUTO 0.21 K/mm3 (0.84-5.20); LYMPHOCYTES PERCENT AUTO 2 % (21-46); MONOCYTES ABSOLUTE AUTO 0.26 K/mm3 (0.16-1.47); MONOCYTES PERCENT AUTO 2 % (4-13); Mean Corpuscular HGB 33.2 pg (26.0-34.0); Mean Corpuscular HGB Conc 32.9 g/dL (31.5-36.5); Mean Corpuscular Volume 101 fL (80-100); Mean Platelet Volume 9.9 fL (9.1-12.4); Platelet Count 144 K/mm3 (150-400); RDW Coefficient Variation 15.2 % (11.7-14.2); RDW Standard Deviation 57.1 fL (35.1-46.3); Red Blood Cell Count 3.13 M/mm3 (3.80-5.20); White Blood Cell Count 13.64 K/mm3 (4.00-11.30)
[2019-10-28 05:01] LABS: EOSINOPHILS PERCENT AUTO 0 % (0-6); IMMATURE GRAN ABSOLUTE AUTO 0.19 K/mm3 (0.00-0.10); IMMATURE GRAN PERCENT AUTO 1 % (0-1); NEUTROPHILS ABSOLUTE AUTO 12.94 K/mm3 (1.96-9.15); NEUTROPHILS PERCENT AUTO 95 % (41-73)
[2019-10-28 05:23] LABS: Albumin, Blood 1.9 g/dL (3.4-5.0); Albumin/Globulin Ratio 0.5 (0.8-1.8); Bilirubin, Total 0.9 mg/dL (0.1-1.0); Bun/Creatinine Ratio 15.9 (12.0-20.0); Calcium, Blood 8.9 mg/dL (8.5-10.1); Creatinine, Blood 2.76 mg/dL (0.40-1.00); Globulin, Blood 3.8 g/dL (2.2-4.0); Total Protein, Blood 5.7 g/dL (6.4-8.2)
[2019-10-29 05:42] LABS: Hematocrit 26.8 % (33.0-51.0); Hemoglobin 8.8 g/dL (11.5-16.0); Mean Corpuscular HGB 33.2 pg (26.0-34.0); Mean Corpuscular HGB Conc 32.8 g/dL (31.5-36.5); Mean Corpuscular Volume 101 fL (80-100); Platelet Count 166 K/mm3 (150-400); RDW Coefficient Variation 15.2 % (11.7-14.2); RDW Standard Deviation 56.5 fL (35.1-46.3); Red Blood Cell Count 2.65 M/mm3 (3.80-5.20)
[2019-10-29 05:56] LABS: Bun/Creatinine Ratio 23.9 (12.0-20.0); Calcium, Blood 8.4 mg/dL (8.5-10.1); Creatinine, Blood 1.63 mg/dL (0.40-1.00); Potassium, Blood 3.4 mmol/L (3.5-5.5)
[2019-10-29 06:42] LABS: BAND PERCENT MAN 5 % (0-8); BASOPHILS PERCENT MAN 0 % (0-2); EOSINOPHILS PERCENT MAN 0 % (0-6); LYMPHOCYTES ABSOLUTE MAN 0.11 K/mm3 (0.84-5.20); LYMPHOCYTES PERCENT MAN 1 % (21-46); MONOCYTES ABSOLUTE MAN 0.11 K/mm3 (0.16-1.47); MONOCYTES PERCENT MAN 1 % (4-13); NEUTROPHILS ABSOLUTE MAN 11.66 K/mm3 (1.96-9.15); SEG NEUTROPHILS PERCENT MAN 93 % (41-73); TOTAL CELLS COUNTED 100
[2019-10-29 14:55] LABS: Eosinophils-Raw #,Urine 0
[2019-10-30 05:20] LABS: Bun/Creatinine Ratio 25.5 (12.0-20.0); Calcium, Blood 8.9 mg/dL (8.5-10.1); Creatinine, Blood 1.37 mg/dL (0.40-1.00)
[2019-10-30 14:59] LABS: Campylobacter Sp Not Detected (NOT DETECT); Cryptosporidium Not Detected (NOT DETECT); Cyclospora Cayetanensis Not Detected (NOT DETECT); E. Coli O157 Not Detected (NOT DETECT); Entamoeba Histolytica Not Detected (NOT DETECT); Enteroaggregative E. coli-EAEC Not Detected (NOT DETECT); Enteropathogenic E. coli-EPEC Not Detected (NOT DETECT); Enterotoxigenic E. coli-ETEC Not Detected (NOT DETECT); Giardia Lamblia Not Detected (NOT DETECT); Plesiomonas Shigelloides Not Detected (NOT DETECT); Salmonella Sp Not Detected (NOT DETECT); Shiga Toxin-prod E. coli-STEC Not Detected (NOT DETECT); Shigella/Enteroin E. coli-EIEC Not Detected (NOT DETECT); Vibrio Cholerae Not Detected (NOT DETECT); Vibrio Sp Not Detected (NOT DETECT); Yersinia Enterocolitica Not Detected (NOT DETECT)
[2019-10-30 15:00] LABS: Adenovirus F 40/41 Not Detected (NOT DETECT); Astrovirus Not Detected (NOT DETECT); Norovirus GI/GII Not Detected (NOT DETECT); Rotavirus A Not Detected (NOT DETECT); Sapovirus Not Detected (NOT DETECT)
[2019-10-31] MEDS ORDERED: VISBIOME 112.51 EACH PO (11:07)
[2019-10-31] MEDS ORDERED: AMOCLA500 PO (11:08)
== END 2019-10-31 12:53 | disposition home or self-care (01) | DRG 871 ==
LOC: ER 13:07 → MEDS 13:08 → ENPENDDIS 10-31 10:00 → MEDS 10-31 12:53
PROVIDERS: Emergency Medicine; Internal Medicine; Physician Assistant; ADMIT Internal Medicine
DX: A41.9 Sepsis, unspecified organism (principal); J18.9 Pneumonia, unspecified organism; N17.9 Acute kidney failure, unspecified; E87.1 Hypo-osmolality and hyponatremia; R65.20 Severe sepsis without septic shock; N18.3 Chronic kidney disease, stage 3 (moderate); J96.01 Acute respiratory failure with hypoxia; I12.9 Hypertensive chronic kidney disease with stage 1 through stage 4 chronic kidney disease, or unspecified chronic kidney disease; M10.9 Gout, unspecified; R19.7 Diarrhea, unspecified; M06.9 Rheumatoid arthritis, unspecified; M32.9 Systemic lupus erythematosus, unspecified; Z88.5 Allergy status to narcotic agent; G47.33 Obstructive sleep apnea (adult) (pediatric); G89.4 Chronic pain syndrome; Z79.52 Long term (current) use of systemic steroids; Z79.899 Other long term (current) drug therapy; Z88.2 Allergy status to sulfonamides; Z88.8 Allergy status to other drugs, medicaments and biological substances
CPT/HCPCS: 0097U; 0099U; 36415; 71045; 80048; 80053; 81001; 83605; 83880; 84132; 84484; 85025; 87040; 87086; 87205; 93005; 93010; 94762; 96365; 97112; 97162; 99285-25; A9270; A9270-GY; J0696; J1650; J1720; J2543; J7120; J7512; J8610; U0002

== ENCOUNTER 2019-11-02 14:48 | Emergency (ER) | payer MEDICARE, OTHER ==
[~2019-11-02] VITALS: Ht 165.1 cm; Wt 68.0 kg
[~2019-11-02 14:48] MED LIST changes: +ALBU90OI6 INH; +ALLO300 PO; +AMOCLA500 PO; +Aldactazide 251 EACH PO; +DICL75ER PO; +Dicyclomine HCl10 MG PO; +Fentanyl1 EAC4 TD; +Klor-Con 1010 MEQ PO; +LISINOPRIL2.5 MG PO; +Leflunomide10 MG PO; +METAXALL800 MG PO; +PANT40 PO; +PREG75 PO; +VISBIOME 112.51 EACH PO
[2019-11-02 15:48] LABS: BASOPHILS ABSOLUTE AUTO 0.01 K/mm3 (0.00-0.23); BASOPHILS PERCENT AUTO 0 % (0-2); EOSINOPHILS ABSOLUTE AUTO 0.01 K/mm3 (0.00-0.68); EOSINOPHILS PERCENT AUTO 0 % (0-6); Hematocrit 33.9 % (33.0-51.0); Hemoglobin 11.4 g/dL (11.5-16.0); IMMATURE GRAN ABSOLUTE AUTO 0.11 K/mm3 (0.00-0.10); IMMATURE GRAN PERCENT AUTO 2 % (0-1); LYMPHOCYTES ABSOLUTE AUTO 1.14 K/mm3 (0.84-5.20); LYMPHOCYTES PERCENT AUTO 15 % (21-46); MONOCYTES ABSOLUTE AUTO 0.29 K/mm3 (0.16-1.47); MONOCYTES PERCENT AUTO 4 % (4-13); Mean Corpuscular HGB 33.1 pg (26.0-34.0); Mean Corpuscular HGB Conc 33.6 g/dL (31.5-36.5); Mean Corpuscular Volume 99 fL (80-100); Mean Platelet Volume 9.9 fL (9.1-12.4); NEUTROPHILS PERCENT AUTO 79 % (41-73); Platelet Count 245 K/mm3 (150-400); RDW Coefficient Variation 14.2 % (11.7-14.2); RDW Standard Deviation 51.4 fL (35.1-46.3); Red Blood Cell Count 3.44 M/mm3 (3.80-5.20); White Blood Cell Count 7.46 K/mm3 (4.00-11.30)
[2019-11-02 16:09] LABS: Alanine Aminotransfer (ALT/SGP 37 U/L (12-78); Albumin, Blood 2.6 g/dL (3.4-5.0); Albumin/Globulin Ratio 0.8 (0.8-1.8); Alk Phos 92 U/L (50-136); Anion Gap 7 mmol/L (6-16); Aspartate Aminotrans (AST/SGOT 65 U/L (12-37); Bilirubin, Total 0.9 mg/dL (0.1-1.0); Blood Urea Nitrogen 15 mg/dL (8-24); CO2, Blood 28 mmol/L (21-32); Calcium, Blood 8.7 mg/dL (8.5-10.1); Chloride, Blood 101 mmol/L (98-108); Creatinine, Blood 0.79 mg/dL (0.40-1.00); Globulin, Blood 3.4 g/dL (2.2-4.0); Glomerular Filtration Rate >60 (60-); Glucose, Blood 76 mg/dL (70-99); Potassium, Blood 3.6 mmol/L (3.5-5.5); Sodium, Blood 136 mmol/L (136-145)
[2019-11-02] MEDS ORDERED: ONDA4ODT MM (17:15)
[2019-11-02] MEDS ORDERED: MONDOXYNE NL100 MG PO (17:15)
== END 2019-11-02 18:17 | disposition home or self-care (01) ==
LOC: ER 14:48
PROVIDERS: Nurse Practitioner
DX: R11.2 Nausea with vomiting, unspecified (principal); T36.0X5A Adverse effect of penicillins, initial encounter; I10 Essential (primary) hypertension; M10.9 Gout, unspecified; M06.9 Rheumatoid arthritis, unspecified; J45.909 Unspecified asthma, uncomplicated; G47.33 Obstructive sleep apnea (adult) (pediatric); Z88.1 Allergy status to other antibiotic agents; Z88.2 Allergy status to sulfonamides; Z88.5 Allergy status to narcotic agent; Z88.8 Allergy status to other drugs, medicaments and biological substances; Z79.899 Other long term (current) drug therapy; Z79.2 Long term (current) use of antibiotics
CPT/HCPCS: 71046; 80053; 85025; 96361; 96374; 99284-25; J2405; J7030

== ENCOUNTER 2019-11-05 07:44 | Inpatient (IN) | payer MEDICARE, OTHER ==
[~2019-11-05] VITALS: Ht 165.1 cm; Wt 68.0 kg
[~2019-11-05 07:44] MED LIST changes: +MONDOXYNE NL100 MG PO; +ONDA4ODT MM
[2019-11-05 08:24] LABS: BASOPHILS ABSOLUTE AUTO 0.08 K/mm3 (0.00-0.23); BASOPHILS PERCENT AUTO 0 % (0-2); EOSINOPHILS ABSOLUTE AUTO 0.01 K/mm3 (0.00-0.68); EOSINOPHILS PERCENT AUTO 0 % (0-6); Hematocrit 35.6 % (33.0-51.0); Hemoglobin 12.1 g/dL (11.5-16.0); IMMATURE GRAN ABSOLUTE AUTO 0.51 K/mm3 (0.00-0.10); IMMATURE GRAN PERCENT AUTO 3 % (0-1); LYMPHOCYTES ABSOLUTE AUTO 1.29 K/mm3 (0.84-5.20); LYMPHOCYTES PERCENT AUTO 7 % (21-46); MONOCYTES ABSOLUTE AUTO 2.05 K/mm3 (0.16-1.47); MONOCYTES PERCENT AUTO 11 % (4-13); Mean Corpuscular HGB 33.7 pg (26.0-34.0); Mean Corpuscular Volume 99 fL (80-100); Mean Platelet Volume 9.7 fL (9.1-12.4); NEUTROPHILS ABSOLUTE AUTO 14.81 K/mm3 (1.96-9.15); NEUTROPHILS PERCENT AUTO 79 % (41-73); Platelet Count 315 K/mm3 (150-400); RDW Coefficient Variation 14.6 % (11.7-14.2); RDW Standard Deviation 52.7 fL (35.1-46.3); Red Blood Cell Count 3.59 M/mm3 (3.80-5.20); White Blood Cell Count 18.75 K/mm3 (4.00-11.30)
[2019-11-05 08:43] LABS: Alanine Aminotransfer (ALT/SGP 21 U/L (12-78); Albumin, Blood 2.8 g/dL (3.4-5.0); Albumin/Globulin Ratio 0.8 (0.8-1.8); Alk Phos 74 U/L (50-136); Anion Gap 18 mmol/L (6-16); Aspartate Aminotrans (AST/SGOT 44 U/L (12-37); Bilirubin, Total 0.7 mg/dL (0.1-1.0); Blood Urea Nitrogen 11 mg/dL (8-24); Bun/Creatinine Ratio 12.5 (12.0-20.0); CO2, Blood 16 mmol/L (21-32); Calcium, Blood 8.8 mg/dL (8.5-10.1); Chloride, Blood 104 mmol/L (98-108); Creatinine, Blood 0.88 mg/dL (0.40-1.00); Globulin, Blood 3.3 g/dL (2.2-4.0); Glomerular Filtration Rate >60 (60-); Glucose, Blood 95 mg/dL (70-99); Potassium, Blood 3.4 mmol/L (3.5-5.5); Sodium, Blood 138 mmol/L (136-145); Total Protein, Blood 6.1 g/dL (6.4-8.2)
[2019-11-05 09:29] LABS: Source, Urine Clean Catch
[2019-11-05 09:33] LABS: Appearance, Urine Clear (Clear); Bilirubin, Urine Neg (Neg); Blood, Urine Neg (Neg); Color, Urine Yellow (P-Yellow); Glucose Qualitative, Urine Neg (Neg); Ketones, Urine 4+ (Neg); Leukocyte Esterase, Urine Neg (Neg); Nitrite, Urine Neg (Neg); Protein, Urine 1+ (Neg); Urobilinogen, Urine NORM (Normal)
[2019-11-05 11:04] LABS: Adenovirus F 40/41 Not Detected (NOT DETECT); Astrovirus Not Detected (NOT DETECT); Campylobacter Sp Not Detected (NOT DETECT); Cryptosporidium Not Detected (NOT DETECT); Cyclospora Cayetanensis Not Detected (NOT DETECT); E. Coli O157 Not Detected (NOT DETECT); Entamoeba Histolytica Not Detected (NOT DETECT); Enteroaggregative E. coli-EAEC Not Detected (NOT DETECT); Enteropathogenic E. coli-EPEC Not Detected (NOT DETECT); Enterotoxigenic E. coli-ETEC Not Detected (NOT DETECT); Giardia Lamblia Not Detected (NOT DETECT); Norovirus GI/GII Not Detected (NOT DETECT); Plesiomonas Shigelloides Not Detected (NOT DETECT); Rotavirus A Not Detected (NOT DETECT); Salmonella Sp Not Detected (NOT DETECT); Sapovirus Not Detected (NOT DETECT); Shiga Toxin-prod E. coli-STEC Not Detected (NOT DETECT); Shigella/Enteroin E. coli-EIEC Not Detected (NOT DETECT); Vibrio Cholerae Not Detected (NOT DETECT); Vibrio Sp Not Detected (NOT DETECT); Yersinia Enterocolitica Not Detected (NOT DETECT)
--- NOTE | 2019-11-05 15:13 | NUR ---
SHIFT SUMMARY PT WAS AN ER ADMIT THIS AFTERNOON. SHE IS A/O X 4 AND DENIES PAIN. SHE DOES REPORT NAUSEA AND MEDS WERE GIVEN ORDERED. SHE REPORTS BEING HERE LAST WEEK AND RETURNED DUE TO ONGOING LOOSE STOOL AND CONTINUED WEAKNESS. SHE WAS ORIENTED TO HER ROOM, CALL LIGHT AND NURSING STAFF. SHE DENIES SOB AND CHEST PAIN. NO SKIN ISSUES PRESENT ON ADMISSION. SHE REPORTS THAT SHE HAS BEEN INC OF B/B AND SHE HAS A BRIEF ON. SHE IS ABLE TO CALL FOR HELP WHEN NEEDED AND HAS HER CALL LIGHT IN REACH.
[2019-11-05] MEDS ORDERED: VISBIOME 112.51 EACH PO (15:17)
--- NOTE | 2019-11-05 20:42 | NUR ---
ASSUMED CARE. ANA IS LAYING IN BED TALKING TO HER SISTER. SHE FINISHED HER PHONE CALL. STATES SHE IS NOT FEELING WELL. SHE HAS BEEN HAVING NAUSEA AND VOMITING THAT IS WHY SHE CAME IN. ASKED IF SHE HAS VOMITED SINCE SHE HAS BEEN HERE, SHE SAID NO. ASKED IF SHE IS NAUSEATED NOW, SHE SAID NO. ABDOMIN IS SOFT, NON-TENDER, BT X4. REPORTS SEVERAL LOOSE BM TODAY. ATTENDS IS DRY AND CLEAN. LUNG SOUNDS CLEAR, WITH MILD DIMINISHED ON THE RIGHT SIDE. HR REGULAR. DENIES ANY OTHER SYMPTOMS. IV INFUSING IV FLUIDS. NO PAIN NOTED. MEDS GIVEN PER ORDERS. CALL LIGHT IN REACH. WILL CONTINUE TO MONITOR.
--- NOTE | 2019-11-05 22:04 | NUR ---
ANA IS RESTING IN BED, SHE AWAKENS EASILY. STATES HER THROAT IS A LITTLE SORE FROM ALL THE VOMITING, ASKED IF SHE VOMITED SHE SAID NO. ITS FROM EARLIER. OFFERED HER COLD DRINKS AND TEA. SHE DID NOT WANT THAT. SHE DID HAVE ICE WATER AT BEDSIDE. WILL CONTINUE TO MONITOR.
--- NOTE | 2019-11-06 05:03 | NUR ---
SHIFT SUMMARY: 74 Y/O FEMALE ADMITTED FOR SEVERE SEPSIS YESTERDAY. REPORTING SEVERE WEAKNESS, AND NAUSEA. NO EMEMSIS NOTED THIS SHIFT. SHE STATES SHE HAS BEEN NAUSEATED BUT NEVER WHEN I WAS IN THE ROOM. SHE WAS ABLE TO GET UP TO BSC WITH 1 ASSIST. WAS STRONG ON HER LEGS, JUST NEEDED HELP GETTING BACK TO BED. ABDOMIN MILD DISTENTION, MILD TENDERNESS. STILL HAVING SMALL SOFT STOOLS. ATTENDS HAVE REMAINED DRY. DENIED ANY PAIN OR DISCOMFORT. IV FLUIDS HAVE BEEN INFUSING ALL NIGHT WITH NO PROBLEMS. VS WNL, AFEBRILE. MEDS PER EMAR. NO ACUTE CHANGES THIS SHIFT.
[2019-11-06 05:13] LABS: BASOPHILS ABSOLUTE AUTO 0.06 K/mm3 (0.00-0.23); BASOPHILS PERCENT AUTO 1 % (0-2); EOSINOPHILS ABSOLUTE AUTO 0.02 K/mm3 (0.00-0.68); EOSINOPHILS PERCENT AUTO 0 % (0-6); Hematocrit 29.4 % (33.0-51.0); Hemoglobin 9.6 g/dL (11.5-16.0); IMMATURE GRAN ABSOLUTE AUTO 0.28 K/mm3 (0.00-0.10); IMMATURE GRAN PERCENT AUTO 2 % (0-1); LYMPHOCYTES ABSOLUTE AUTO 1.37 K/mm3 (0.84-5.20); LYMPHOCYTES PERCENT AUTO 11 % (21-46); MONOCYTES ABSOLUTE AUTO 1.38 K/mm3 (0.16-1.47); MONOCYTES PERCENT AUTO 12 % (4-13); Mean Corpuscular HGB 33.1 pg (26.0-34.0); Mean Corpuscular HGB Conc 32.7 g/dL (31.5-36.5); Mean Corpuscular Volume 101 fL (80-100); Mean Platelet Volume 9.3 fL (9.1-12.4); NEUTROPHILS ABSOLUTE AUTO 8.86 K/mm3 (1.96-9.15); NEUTROPHILS PERCENT AUTO 74 % (41-73); Platelet Count 286 K/mm3 (150-400); RDW Coefficient Variation 15.3 % (11.7-14.2); RDW Standard Deviation 56.1 fL (35.1-46.3); White Blood Cell Count 11.97 K/mm3 (4.00-11.30)
[2019-11-06 05:33] LABS: Anion Gap 12 mmol/L (6-16); Blood Urea Nitrogen 10 mg/dL (8-24); Bun/Creatinine Ratio 11.7 (12.0-20.0); CO2, Blood 20 mmol/L (21-32); Chloride, Blood 110 mmol/L (98-108); Creatinine, Blood 0.85 mg/dL (0.40-1.00); Glomerular Filtration Rate >60 (60-); Glucose, Blood 58 mg/dL (70-99); Potassium, Blood 3.5 mmol/L (3.5-5.5); Sodium, Blood 142 mmol/L (136-145)
--- NOTE | 2019-11-06 16:14 | NUR ---
SHIFT SUMMARY PT IS A/O X 3 WITH CONFUSION AT TIMES AND FORGETFULNESS. SHE CONTIUES TO BE VERY WEAK AND HAS REMAINED ON BEDREST TODAY. SHE HAS BEEN INC OF B/B BUT IS A X 1 ASSIST FOR TURNING AND TOILETING. HER FAMILY CALLS HER OFTEN ON HER PHONE TO CHECK IN WITH HER. ALL FLUIDS/ABO HAVE INFUSED ORDERED WITH NO ISSUE. PT HAS HAD NO C/O PAIN TODAY AND HAS SLEPT EXCEPT FOR MEALS. SHE REMAINS ON A LIQUID DIET AND HAS A POOR APPETITE. SHE IS ABLE TO MAKE HER NEEDS KNOWN AND CALLS FOR HELP WHEN NEEDED. SHE HAS HER CALL LIGHT IN REACH.
--- NOTE | 2019-11-06 19:49 | NUR ---
ASSUMED CARE. ALEXI WAS ON THE PHONE WITH FAMILY. SHE GOT OFF FOR ASSESSMENT. STATES SHE FEELS SHE IS DOING BETTER, BUT OCCATIONALLY HAS SOME STOMACH PAIN AND NAUSEA. NO EMESIS TODAY. STATES SHE THINKS SHE WILL BE DISCHARGED HOME TOMORROW AND IS NOT SURE SHE IS READY. DISCUSSED WAYS TO HELP HER AT HOME SUCH MEALS AND ACTIVITY. IV FLUIDS INFUSING WELL. DENIES ANY NEEDS AT THIS TIME. CALL LIGHT IN REACH. WILL CONTINUE TO MONITOR.
--- NOTE | 2019-11-06 21:49 | NUR ---
JUST GOT BACK TO BED FROM USING THE COMMODE. SHE IS FINALLY OFF THE PHONE FROM THE SEVERAL CALLS SHE GOT TONIGHT. DENIES ANY NEEDS OR WANTS. STATES SHE IS DOING OK. CALL LIGHT IN REACH.
--- NOTE | 2019-11-07 00:52 | NUR ---
ANA IS ASLEEP COMFORTABLY NO SIGNS OF DISTRESS. CALL LIGHT IN REACH.
--- NOTE | 2019-11-07 05:02 | NUR ---
SHIFT SUMMARY: 74 Y/O ADMITTED FOR SEVERE SEPSIS. ANA HAD A GOOD NIGHT WITH NO NAUSEA OR VOMITING THIS SHIFT. DID REPORT OCCATIONAL TENDERNESS TO ABDOMIN AND INABILITY TO TAKE ANY SOLIDS ONLY FULL LIQUIDS. STATES THEY UPSET HER STOMACH. ABLE TO GET UP TO BSC WITH SBA. GOOD OUTPUT NOTED. IV CONTINUES TO INFUSE LR AT 75ML/HR. TAKES MEDS WITH WATER. LUNG SOUNDS ARE CLEAR BUT DIMINISHED, NO COUGH. ON RA WITH SATS IN THE 90'S. VS WNL, AFEBRILE. WILL CONTINUE TO MONITOR TILL DAY SHIFT TAKES OVER.
[2019-11-07] MEDS ORDERED: ACET325 PO (11:16)
[2019-11-07] MEDS ORDERED: POLY500 PO (11:16)
[2019-11-07] MEDS ORDERED: TUMS500 MG PO (11:16)
[2019-11-07] MEDS ORDERED: LOPE2C PO (11:17)
[2019-11-07] MEDS ORDERED: TRAM50 PO (11:20)
--- NOTE | 2019-11-07 14:52 | NUR ---
DISCHARGE SUMMARY PT DISCHARGED TO HOME. PT LEFT ROOM VIA WHEELCHAIR WITH CHEMIST INSTRUMENTATION ESCORT JUST PRIOR TO THIS NOTE. ALL DISCHARGE INSTRUCTIONS COMPLETED, ALL QUESTIONS ANSWERED. PT EDUCATED ON MEDICATIONS AND INSTRUCTED TO FOLLOW UP WITH PCP AT 1500 ON 11/09/19, PT AGREES. IV DC'D, BELONGINGS RETURNED AND PRESCRIPTION FOR PAIN MEDICATION GIVEN TO PATIENT.
== END 2019-11-07 14:52 | disposition home or self-care (01) | DRG 872 ==
LOC: ER 07:44 → MEDS 07:45
PROVIDERS: Emergency Medicine; ADMIT Internal Medicine
DX: A41.9 Sepsis, unspecified organism (principal); M10.9 Gout, unspecified; I10 Essential (primary) hypertension; K58.0 Irritable bowel syndrome with diarrhea; E86.0 Dehydration; J45.909 Unspecified asthma, uncomplicated; M32.9 Systemic lupus erythematosus, unspecified; K29.00 Acute gastritis without bleeding; M06.9 Rheumatoid arthritis, unspecified; M79.7 Fibromyalgia; M19.90 Unspecified osteoarthritis, unspecified site
CPT/HCPCS: 0097U; 36415; 71045; 74176; 80048; 80053; 83605; 83690; 85025; 87040; 96361; 96372; 96374; 96375; 96376; 97165; 97535; 99285-25; C9113; G0378; J0696; J1650; J2405; J7030; J7050; J7120; J7512; P9612

== ENCOUNTER 2020-06-23 07:52 | Day surgery (SDC) | payer MEDICARE, OTHER ==
[~2020-06-23 07:52] MED LIST changes: +ACET325 PO; +LOPE2C PO; +POLY500 PO; +TRAM50 PO; +TUMS500 MG PO
== END 2020-06-23 23:47 | disposition home or self-care (01) ==
LOC: CT 07:52 → ORD 07:52 → CT 09:00 → ORD 23:47
DX: I25.10 Atherosclerotic heart disease of native coronary artery without angina pectoris (principal); I10 Essential (primary) hypertension; M32.9 Systemic lupus erythematosus, unspecified; M81.0 Age-related osteoporosis without current pathological fracture; M06.9 Rheumatoid arthritis, unspecified; M79.7 Fibromyalgia; Z88.1 Allergy status to other antibiotic agents; Z88.2 Allergy status to sulfonamides; Z88.8 Allergy status to other drugs, medicaments and biological substances; Z79.52 Long term (current) use of systemic steroids; Z79.899 Other long term (current) drug therapy; Z20.828 Contact with and (suspected) exposure to other viral communicable diseases
CPT/HCPCS: 75574; Q9967

== ENCOUNTER → 2020-09-15 | Outpatient (CLI) | payer MEDICARE, OTHER ==
[~2020-09-15] MED LIST changes: +ALDACTAZIDE 251 EACH PO; -Aldactazide 251 EACH PO; +Lopressor 25 mg25 MG PO; +PRED5 PO
== END ==
LOC: LAB 15:25 → LAB SHORT 15:25
DX: D48.5 Neoplasm of uncertain behavior of skin (principal); Z88.1 Allergy status to other antibiotic agents; Z88.2 Allergy status to sulfonamides; Z88.5 Allergy status to narcotic agent; Z88.8 Allergy status to other drugs, medicaments and biological substances
CPT/HCPCS: 88305

== ENCOUNTER 2020-10-10 08:19 | Inpatient (IN) | payer MEDICARE, OTHER ==
[~2020-10-10] VITALS: Ht 165.1 cm; Wt 72.6 kg
[~2020-10-10 08:19] MED LIST changes: -Lopressor 25 mg25 MG PO; -PRED5 PO
[2020-10-10 09:00] LABS: BASOPHILS ABSOLUTE AUTO 0.04 K/mm3 (0.00-0.23); BASOPHILS PERCENT AUTO 1 % (0-2); EOSINOPHILS ABSOLUTE AUTO 0.03 K/mm3 (0.00-0.68); EOSINOPHILS PERCENT AUTO 0 % (0-6); Hematocrit 41.6 % (33.0-51.0); Hemoglobin 14.4 g/dL (11.5-16.0); IMMATURE GRAN ABSOLUTE AUTO 0.03 K/mm3 (0.00-0.10); IMMATURE GRAN PERCENT AUTO 0 % (0-1); LYMPHOCYTES PERCENT AUTO 16 % (21-46); MONOCYTES ABSOLUTE AUTO 0.62 K/mm3 (0.16-1.47); MONOCYTES PERCENT AUTO 8 % (4-13); Mean Corpuscular HGB 32.2 pg (26.0-34.0); Mean Corpuscular HGB Conc 34.6 g/dL (31.5-36.5); Mean Corpuscular Volume 93 fL (80-100); NEUTROPHILS ABSOLUTE AUTO 6.01 K/mm3 (1.96-9.15); NEUTROPHILS PERCENT AUTO 75 % (41-73); RDW Coefficient Variation 13.5 % (11.7-14.2); RDW Standard Deviation 46.6 fL (35.1-46.3); Red Blood Cell Count 4.47 M/mm3 (3.80-5.20); White Blood Cell Count 8.03 K/mm3 (4.00-11.30)
[2020-10-10 09:03] LABS: Mean Platelet Volume 9.1 fL (9.1-12.4); Platelet Count 232 K/mm3 (150-400)
[2020-10-10 09:04] LABS: Alanine Aminotransfer (ALT/SGP 11 U/L (12-78); Albumin, Blood 3.7 g/dL (3.4-5.0); Albumin/Globulin Ratio 1.2 (0.8-1.8); Alk Phos 37 U/L (50-136); Anion Gap 11 mmol/L (6-16); Aspartate Aminotrans (AST/SGOT 35 U/L (12-37); Blood Urea Nitrogen 8 mg/dL (8-24); Bun/Creatinine Ratio 9.8 (12.0-20.0); CO2, Blood 25 mmol/L (21-32); Calcium, Blood 9.4 mg/dL (8.5-10.1); Chloride, Blood 92 mmol/L (98-108); Creatinine, Blood 0.82 mg/dL (0.40-1.00); Glomerular Filtration Rate >60 (60-); Glucose, Blood 93 mg/dL (70-99); Potassium, Blood 3.4 mmol/L (3.5-5.5); Sodium, Blood 128 mmol/L (136-145); Total Protein, Blood 6.7 g/dL (6.4-8.2)
[2020-10-10] MEDS ORDERED: Lopressor 25 mg25 MG PO (11:02)
[2020-10-10] MEDS ORDERED: PRED5 PO (11:03)
[2020-10-10] MEDS ORDERED: K-Dur10 MEQ PO (11:54)
[2020-10-10] MEDS ORDERED: LISINOPRIL2.5 MG PO (11:54)
[2020-10-10] MEDS ORDERED: METO50ER PO (12:07)
--- NOTE | 2020-10-10 19:36 | NUR ---
a+o, still upset stomach, call light in reach, iv infusing ns, rm air, bsr shared with noc nurse and pt, nausea not well controlled with prescribed medication, pt and nurse tried other solutions but pt still felt nauseous
[2020-10-10 23:45] LABS: Campylobacter Sp Not Detected (NOT DETECT)
[2020-10-10 23:46] LABS: Adenovirus F 40/41 Not Detected (NOT DETECT); Astrovirus Not Detected (NOT DETECT); Cryptosporidium Not Detected (NOT DETECT); Cyclospora Cayetanensis Not Detected (NOT DETECT); E. Coli O157 Not Detected (NOT DETECT); Entamoeba Histolytica Not Detected (NOT DETECT); Enteroaggregative E. coli-EAEC Not Detected (NOT DETECT); Enteropathogenic E. coli-EPEC Not Detected (NOT DETECT); Enterotoxigenic E. coli-ETEC Not Detected (NOT DETECT); Giardia Lamblia Not Detected (NOT DETECT); Norovirus GI/GII Not Detected (NOT DETECT); Plesiomonas Shigelloides Not Detected (NOT DETECT); Rotavirus A Not Detected (NOT DETECT); Salmonella Sp Not Detected (NOT DETECT); Sapovirus Not Detected (NOT DETECT); Shiga Toxin-prod E. coli-STEC Not Detected (NOT DETECT); Shigella/Enteroin E. coli-EIEC Not Detected (NOT DETECT); Vibrio Cholerae Not Detected (NOT DETECT); Vibrio Sp Not Detected (NOT DETECT); Yersinia Enterocolitica Not Detected (NOT DETECT)
--- NOTE | 2020-10-11 04:49 | NUR ---
SHIFT SUMMARY ASUUMED CARE OF PT AT 1900. PT IS A/OX4. HEART SOUNDS REGULAR. LUNG SOUNDS CLEAR. PT C/O NEASEA GAVE ZOFRAN WITH LITTLE EFFECT, CALLED HOSPITALIST WHO PERSCRIBED PHENERGEN, PT FELT BETTER AND ABLE TO GET SOME SLEEP. PT C/O DIARRHEA, IMODIUM GIVEN. PT TESTED POSITIVE FOR CDIFF. PT HAS WOUND ON L FOOT. OPEN TO AIR, WT BEARING TOLERATED. PT CONCERNED ABOUT HOW SHE GOT CDIFF IN THE FIRST PLACE. CALL LIGHT IN REACH, BED IN LOWEST POSTION.
[2020-10-11 05:33] LABS: BASOPHILS ABSOLUTE AUTO 0.05 K/mm3 (0.00-0.23); BASOPHILS PERCENT AUTO 1 % (0-2); EOSINOPHILS ABSOLUTE AUTO 0.04 K/mm3 (0.00-0.68); EOSINOPHILS PERCENT AUTO 1 % (0-6); Hematocrit 32.9 % (33.0-51.0); Hemoglobin 11.1 g/dL (11.5-16.0); IMMATURE GRAN ABSOLUTE AUTO 0.03 K/mm3 (0.00-0.10); IMMATURE GRAN PERCENT AUTO 0 % (0-1); LYMPHOCYTES ABSOLUTE AUTO 1.43 K/mm3 (0.84-5.20); LYMPHOCYTES PERCENT AUTO 20 % (21-46); MONOCYTES ABSOLUTE AUTO 0.65 K/mm3 (0.16-1.47); MONOCYTES PERCENT AUTO 9 % (4-13); Mean Corpuscular HGB 32.1 pg (26.0-34.0); Mean Corpuscular HGB Conc 33.7 g/dL (31.5-36.5); Mean Corpuscular Volume 95 fL (80-100); Mean Platelet Volume 8.7 fL (9.1-12.4); NEUTROPHILS ABSOLUTE AUTO 4.94 K/mm3 (1.96-9.15); NEUTROPHILS PERCENT AUTO 69 % (41-73); Platelet Count 206 K/mm3 (150-400); RDW Coefficient Variation 13.7 % (11.7-14.2); RDW Standard Deviation 48.2 fL (35.1-46.3); Red Blood Cell Count 3.46 M/mm3 (3.80-5.20); White Blood Cell Count 7.14 K/mm3 (4.00-11.30)
[2020-10-11 06:01] LABS: Anion Gap 8 mmol/L (6-16); Blood Urea Nitrogen 7 mg/dL (8-24); Bun/Creatinine Ratio 8.1 (12.0-20.0); CO2, Blood 22 mmol/L (21-32); Chloride, Blood 100 mmol/L (98-108); Creatinine, Blood 0.87 mg/dL (0.40-1.00); Glomerular Filtration Rate >60 (60-); Glucose, Blood 62 mg/dL (70-99); Magnesium, Blood 1.5 mg/dL (1.6-2.4); Sodium, Blood 130 mmol/L (136-145)
--- NOTE | 2020-10-11 18:21 | NUR ---
Shift Summary A/Ox4, pleasant and cooperative. Up in room to bsc independently. Calls for needs appropriately. Did not complain of nausea this shift. Tolerating PO intake well. Had one liquidy stool this morning. Denies pain. No emesis. Tele: SR 85, this has been d/c. L foot surgical site clean, dry, and open to air. NS @ 75. RA, VSS. No acute changes, WCTM.
[2020-10-12 05:30] LABS: BASOPHILS ABSOLUTE AUTO 0.03 K/mm3 (0.00-0.23); BASOPHILS PERCENT AUTO 1 % (0-2); EOSINOPHILS ABSOLUTE AUTO 0.01 K/mm3 (0.00-0.68); EOSINOPHILS PERCENT AUTO 0 % (0-6); Hematocrit 32.5 % (33.0-51.0); IMMATURE GRAN ABSOLUTE AUTO 0.02 K/mm3 (0.00-0.10); IMMATURE GRAN PERCENT AUTO 0 % (0-1); LYMPHOCYTES ABSOLUTE AUTO 1.37 K/mm3 (0.84-5.20); LYMPHOCYTES PERCENT AUTO 22 % (21-46); MONOCYTES ABSOLUTE AUTO 0.63 K/mm3 (0.16-1.47); MONOCYTES PERCENT AUTO 10 % (4-13); Mean Corpuscular HGB 32.4 pg (26.0-34.0); Mean Corpuscular HGB Conc 33.8 g/dL (31.5-36.5); Mean Corpuscular Volume 96 fL (80-100); Mean Platelet Volume 8.9 fL (9.1-12.4); NEUTROPHILS ABSOLUTE AUTO 4.14 K/mm3 (1.96-9.15); NEUTROPHILS PERCENT AUTO 67 % (41-73); Platelet Count 205 K/mm3 (150-400); RDW Coefficient Variation 13.8 % (11.7-14.2); RDW Standard Deviation 48.1 fL (35.1-46.3)
--- NOTE | 2020-10-12 06:06 | NUR ---
PT IS A/O UP TO BSC AT BEGGINING OF SHIFT, SURGICAL WOUND HEALING ON UPPER LEFT FOOT, SWELLING NOTED. NO NAUSEA NOTED THIS SHIFT. FULL LIQUID DIET.
[2020-10-12 06:07] LABS: Alanine Aminotransfer (ALT/SGP 9 U/L (12-78); Albumin, Blood 2.9 g/dL (3.4-5.0); Albumin/Globulin Ratio 1.4 (0.8-1.8); Alk Phos 26 U/L (50-136); Anion Gap 6 mmol/L (6-16); Aspartate Aminotrans (AST/SGOT 27 U/L (12-37); Bilirubin, Total 0.5 mg/dL (0.1-1.0); Blood Urea Nitrogen 5 mg/dL (8-24); CO2, Blood 24 mmol/L (21-32); Calcium, Blood 8.3 mg/dL (8.5-10.1); Chloride, Blood 104 mmol/L (98-108); Creatinine, Blood 0.84 mg/dL (0.40-1.00); Globulin, Blood 2.1 g/dL (2.2-4.0); Glomerular Filtration Rate >60 (60-); Glucose, Blood 69 mg/dL (70-99); Magnesium, Blood 2.1 mg/dL (1.6-2.4); Potassium, Blood 3.6 mmol/L (3.5-5.5); Sodium, Blood 134 mmol/L (136-145)
--- NOTE | 2020-10-12 15:06 | NUR ---
Shift Summary A/Ox4, discharging to home. Reviewed d/c papers with patient and spouse at bedside, no questions, copy given. IV removed. No new meds. Personal belongings will be sent home with patient. Minimal assist with dressing. Had 1 loose stool this shift, voiding good. Will be escorted by staff via w/c once done dressing. to transport home.
== END 2020-10-12 15:14 | disposition home or self-care (01) | DRG 392 ==
LOC: ER 08:19 → MEDS 08:20
PROVIDERS: Emergency Medicine; Internal Medicine; ADMIT Internal Medicine
DX: A08.4 Viral intestinal infection, unspecified (principal); E87.1 Hypo-osmolality and hyponatremia; M06.9 Rheumatoid arthritis, unspecified; M32.9 Systemic lupus erythematosus, unspecified; J45.909 Unspecified asthma, uncomplicated; I10 Essential (primary) hypertension; E87.6 Hypokalemia; M54.5 Low back pain; M10.9 Gout, unspecified; G89.29 Other chronic pain; E83.42 Hypomagnesemia; R79.89 Other specified abnormal findings of blood chemistry; M79.7 Fibromyalgia; K58.9 Irritable bowel syndrome, unspecified; Z96.641 Presence of right artificial hip joint; Z98.41 Cataract extraction status, right eye; Z98.42 Cataract extraction status, left eye; Z90.49 Acquired absence of other specified parts of digestive tract; Z90.710 Acquired absence of both cervix and uterus; Z98.890 Other specified postprocedural states; Z88.1 Allergy status to other antibiotic agents; Z88.2 Allergy status to sulfonamides; Z88.8 Allergy status to other drugs, medicaments and biological substances; Z79.899 Other long term (current) drug therapy
CPT/HCPCS: 0097U; 36415; 80048; 80053; 83690; 83735; 84484; 85025; 87324; 93005; 93010; 93306; 94760; 96365; 96366; 96372; 96372-59; 96374; 96375; 96376; 99285-25; A9270; A9270-GY; G0378; J1650; J2405; J2550; J3475; J7030; J7120; J7512

== ENCOUNTER 2022-02-09 06:16 | Inpatient (IN) | payer MEDICARE ==
[~2022-02-09] VITALS: Ht 165.1 cm; Wt 68.8 kg
[~2022-02-09 06:16] MED LIST changes: +ATOR20 PO; +Aspir 8181 MG PO; +Bentyl10 MG PO; +LOSARTAN POTASS25 M2 PO; +Lopressor 25 mg25 MG PO; +NITR.4SL SL; +PRED5 PO; +SPIRONOLACTONE1 EACH PO
[2022-02-09 06:42] LABS: BASOPHILS ABSOLUTE AUTO 0.02 K/mm3 (0.00-0.23); BASOPHILS PERCENT AUTO 0 % (0-2); EOSINOPHILS PERCENT AUTO 0 % (0-6); Hematocrit 38.1 % (33.0-51.0); Hemoglobin 13.4 g/dL (11.5-16.0); IMMATURE GRAN ABSOLUTE AUTO 0.06 K/mm3 (0.00-0.10); IMMATURE GRAN PERCENT AUTO 1 % (0-1); LYMPHOCYTES ABSOLUTE AUTO 0.38 K/mm3 (0.84-5.20); LYMPHOCYTES PERCENT AUTO 4 % (21-46); MONOCYTES ABSOLUTE AUTO 0.84 K/mm3 (0.16-1.47); MONOCYTES PERCENT AUTO 8 % (4-13); Mean Corpuscular HGB 32.1 pg (26.0-34.0); Mean Corpuscular HGB Conc 35.2 g/dL (31.5-36.5); Mean Corpuscular Volume 91 fL (80-100); Mean Platelet Volume 8.5 fL (9.1-12.4); NEUTROPHILS ABSOLUTE AUTO 8.68 K/mm3 (1.96-9.15); NEUTROPHILS PERCENT AUTO 87 % (41-73); Platelet Count 197 K/mm3 (150-400); RDW Coefficient Variation 14.8 % (11.7-14.2); RDW Standard Deviation 49.5 fL (35.1-46.3); Red Blood Cell Count 4.18 M/mm3 (3.80-5.20); White Blood Cell Count 9.98 K/mm3 (4.00-11.30)
[2022-02-09 07:03] LABS: Albumin/Globulin Ratio 0.9 (0.8-1.8); Bilirubin, Total 1.4 mg/dL (0.1-1.0); Bun/Creatinine Ratio 20.7 (12.0-20.0); Calcium, Blood 9.4 mg/dL (8.5-10.1); Creatinine, Blood 0.77 mg/dL (0.40-1.00); Globulin, Blood 3.5 g/dL (2.2-4.0); Potassium, Blood 3.3 mmol/L (3.5-5.5); Total Protein, Blood 6.5 g/dL (6.4-8.2)
[2022-02-09 07:19] LABS: Influenza A, PCR NEGATIVE (NEGATIVE); Influenza B, PCR NEGATIVE (NEGATIVE); Resp Syncytial Virus, PCR NEGATIVE (NEGATIVE); SARS-Cov-2 (COVID-19) PCR, MMC NEGATIVE (NEGATIVE)
[2022-02-09] MEDS ORDERED: CYCL10 PO (08:12)
[2022-02-09 08:38] LABS: Source, Urine Clean Catch
[2022-02-09 08:53] LABS: Bilirubin, Urine Neg (Neg); Blood, Urine 2+ (Neg); Glucose Qualitative, Urine Neg (Neg); Ketones, Urine 4+ (Neg); Leukocyte Esterase, Urine 2+ (Neg); Nitrite, Urine Neg (Neg); Protein, Urine 2+ (Neg); Specific Gravity, Urine 1.025 (1.003-1.022); Urobilinogen, Urine 1+ (Normal)
[2022-02-09 09:14] LABS: Appearance, Urine Hazy (Clear); Bacteria Few /hpf; Color, Urine Yellow (P-Yellow); Squamous Epithelial Cells Few /hpf (Few)
--- NOTE | 2022-02-09 18:43 | NUR ---
PATIENT ARRIVED TO MED FLOOR AT 1630 TODAY. SHE IS AO X 4 ON ARRIVAL. SHE HAS AN IV IN HER LEFT AC AND ONE IN HER RT AC. SHE HAS IV NS RUNNING AT 100ML/HR. HER LUNGS ARE DIM IN ALL 4 AND COARSE IN THE BASES. SHE IS COUGHING UP GREEN SPUTUM. HER VITAL SIGNS ARE WNL. SHE IS AN OBS PATIENT FROM THE ER TODAY. HER MED LIST WAS DONE IN THE ER PER REPORT HER SPOUSE GAVE THE MED LIST TO THE ER NURSE. WILL REMAIN AVAILABLE FOR THIS PATIENT FOR ANY WANTS OR NEEDS THAT COME UP PRIOR TO SHIFT CHANGE.
[2022-02-10 06:18] LABS: BASOPHILS ABSOLUTE AUTO 0.02 K/mm3 (0.00-0.23); BASOPHILS PERCENT AUTO 0 % (0-2); EOSINOPHILS PERCENT AUTO 0 % (0-6); Hematocrit 33.3 % (33.0-51.0); Hemoglobin 11.3 g/dL (11.5-16.0); IMMATURE GRAN PERCENT AUTO 1 % (0-1); LYMPHOCYTES ABSOLUTE AUTO 0.38 K/mm3 (0.84-5.20); LYMPHOCYTES PERCENT AUTO 4 % (21-46); MONOCYTES ABSOLUTE AUTO 0.63 K/mm3 (0.16-1.47); MONOCYTES PERCENT AUTO 7 % (4-13); Mean Corpuscular HGB 32.1 pg (26.0-34.0); Mean Corpuscular HGB Conc 33.9 g/dL (31.5-36.5); Mean Corpuscular Volume 95 fL (80-100); Mean Platelet Volume 8.5 fL (9.1-12.4); NEUTROPHILS ABSOLUTE AUTO 7.54 K/mm3 (1.96-9.15); NEUTROPHILS PERCENT AUTO 87 % (41-73); Platelet Count 180 K/mm3 (150-400); RDW Standard Deviation 51.7 fL (35.1-46.3); Red Blood Cell Count 3.52 M/mm3 (3.80-5.20); White Blood Cell Count 8.67 K/mm3 (4.00-11.30)
[2022-02-10 06:34] LABS: Albumin, Blood 2.3 g/dL (3.4-5.0); Albumin/Globulin Ratio 0.8 (0.8-1.8); Bilirubin, Total 0.5 mg/dL (0.1-1.0); Bun/Creatinine Ratio 26.2 (12.0-20.0); Calcium, Blood 7.9 mg/dL (8.5-10.1); Creatinine, Blood 0.57 mg/dL (0.40-1.00); Globulin, Blood 2.9 g/dL (2.2-4.0); Magnesium, Blood 1.7 mg/dL (1.6-2.4); Potassium, Blood 4.1 mmol/L (3.5-5.5); Total Protein, Blood 5.2 g/dL (6.4-8.2)
--- NOTE | 2022-02-10 07:18 | NUR ---
PT WITH 150 ML URINE OUTPUT. BLADDER SCAN DONE 186 ML. PT ON CONT. IV FLUIDS AT 100 ML/HR. PT HAD UNEVENTFUL NIGHT. LA TO SLEEP ON AND OFF. UP TO BSC THIS MORNING FOR BM.
--- NOTE | 2022-02-10 13:06 | NUR ---
Upon receiving a spiritual care referral, i visit pt. Pt tells me that she feels like her recovoery is very slow and she is exhausted. She has her spouse, Derick and great grandson, Ellen present. Pt admits that she is not much for conversation but is amenable to prayer, which I gladly provide. Pt responds with gratitude and appears to have an elevation in mood. I will continue to remain available to patient and family.
--- NOTE | 2022-02-10 13:36 | NUR ---
With Father Abimael, prayer and encouragement is extended to pt. Pt responds well and shows signs of appreciation for the visit.
--- NOTE | 2022-02-10 17:27 | NUR ---
SHIFT SUMMARY; PATIENT UP TO CHAIR AND AMBULATES TO AND FROM BATHROOM DURING DAY. HAS PLEASANT AFFECT AND IS COOPERATIVE WITH CARE. SHE EXPRESSES THAT SHE IS STILL FEELING VERY WEAK. HER VITAL SIGNS ARE WITHIN NORMAL LIMITS. SHE IS AO X 4. HER SPOUSE AND GRANDSON VISIT DURING DAY AND PATIENT IS VERY ANXIOUS TO BE ABLE TO RETURN HOME WITH THEM. HER LUNGS ARE COARSE IN THE LOWER LOBES AND DIM THROUGHOUT. SHE IS STILL COUGHING THICK SPUTUM BUT UNABLE TO GET IT UP FOR SPUTUM ANALYSIS. SHE REMAINS ON ROOM AIR. USES CALL LIGHT APPROPRIATELY. UP IN CHAIR FOR MEALS. IV FLUIDS INFUSING AT 100ML/HR NS.
--- NOTE | 2022-02-11 04:42 | NUR ---
summary n new issues noted. pt denies ob. pt ambulating well with fww to bathroom. pt had difficulty sleeping this shift. call sarika parada.
[2022-02-11 05:26] LABS: Hematocrit 34.9 % (33.0-51.0); Mean Corpuscular HGB 32.1 pg (26.0-34.0); Mean Corpuscular HGB Conc 34.4 g/dL (31.5-36.5); Mean Corpuscular Volume 93 fL (80-100); Mean Platelet Volume 8.4 fL (9.1-12.4); Platelet Count 202 K/mm3 (150-400); RDW Coefficient Variation 15.3 % (11.7-14.2); RDW Standard Deviation 52.5 fL (35.1-46.3); Red Blood Cell Count 3.74 M/mm3 (3.80-5.20)
[2022-02-11 05:48] LABS: Albumin, Blood 2.4 g/dL (3.4-5.0); Anion Gap 6 mmol/L (6-16); Blood Urea Nitrogen 17 mg/dL (8-24); Bun/Creatinine Ratio 26.8 (12.0-20.0); CO2, Blood 22 mmol/L (21-32); Calcium, Blood 8.1 mg/dL (8.5-10.1); Chloride, Blood 106 mmol/L (98-108); Creatinine, Blood 0.64 mg/dL (0.40-1.00); Glomerular Filtration Rate 92 (60-); Glucose, Blood 96 mg/dL (70-99); Phosphorus, Blood 1.3 mg/dL (2.5-4.9); Potassium, Blood 4.1 mmol/L (3.5-5.5); Sodium, Blood 134 mmol/L (136-145)
--- NOTE | 2022-02-11 10:40 | NUR ---
Patient is lying in bed and has son bedside. Pt tells me about the taumatic event that happened to her Grandson and how it has effected that entire family. She also explains about other family unit complications and challenges that they have endured through the years. She talks about the toll her health issues and family issues have taken on her. I encouraged self-care, normalized her experience and provide therapeutic listening, gentle primary counselor and a calming presence. I will continue to remain available to patient and family.
[2022-02-11] MEDS ORDERED: ACET325 PO (14:30)
[2022-02-11] MEDS ORDERED: Tessalon200 MG PO (14:31)
[2022-02-11] MEDS ORDERED: DOXY100 PO (14:32)
[2022-02-11] MEDS ORDERED: FLUTICASONE-SA1 EAC1 INH (14:32)
[2022-02-11] MEDS ORDERED: GUAI600T33 PO (14:33)
[2022-02-11] MEDS ORDERED: VISBIOME 112.51 EACH PO (14:33)
[2022-02-11] MEDS ORDERED: CEFD300 PO (14:34)
[2022-02-11] MEDS ORDERED: ALBU90OI INH (14:34)
--- NOTE | 2022-02-11 15:26 | NUR ---
DISCHARGE SUMMARY PT A/O X4; PLEASANT AND COOPERATIVE WITH CARE. RECEIVING ABX FOR PNEUMONIA. NEW MEDICATIONS FAXED TO [facility]. PT DISCHARGED HOME WITH .
== END 2022-02-11 15:38 | disposition home or self-care (01) | DRG 194 ==
LOC: ER 06:16 → ERHOLD 06:17 → MEDS 06:17
PROVIDERS: Emergency Medicine; Internal Medicine; Nurse Practitioner Acute Care; ADMIT Internal Medicine
DX: J18.9 Pneumonia, unspecified organism (principal); E87.1 Hypo-osmolality and hyponatremia; E87.2 Acidosis; N39.0 Urinary tract infection, site not specified; Z20.822 Contact with and (suspected) exposure to COVID-19; E87.6 Hypokalemia; E86.0 Dehydration; R11.2 Nausea with vomiting, unspecified; R19.7 Diarrhea, unspecified; M06.9 Rheumatoid arthritis, unspecified; M32.9 Systemic lupus erythematosus, unspecified; M10.9 Gout, unspecified; M79.7 Fibromyalgia; G89.29 Other chronic pain; I25.10 Atherosclerotic heart disease of native coronary artery without angina pectoris; E86.1 Hypovolemia; J45.909 Unspecified asthma, uncomplicated; R82.71 Bacteriuria; E83.39 Other disorders of phosphorus metabolism; M54.9 Dorsalgia, unspecified; I10 Essential (primary) hypertension; Z90.49 Acquired absence of other specified parts of digestive tract; Z90.710 Acquired absence of both cervix and uterus; Z98.890 Other specified postprocedural states; Z88.1 Allergy status to other antibiotic agents; Z88.2 Allergy status to sulfonamides; Z88.8 Allergy status to other drugs, medicaments and biological substances; Z79.82 Long term (current) use of aspirin; Z79.899 Other long term (current) drug therapy
CPT/HCPCS: 0241U; 36415; 71045; 80053; 80069; 81001; 83605; 83735; 84145; 85025; 85027; 87040; 87070; 87077; 87086; 87185; 87205; 93005; 93010; 94640; 94664; 94760; 96361; 96365; 96366; 96372; 96375; 96376; 99285-25; A9270; G0378; J0696; J1650; J7030; J7060; J7512

== ENCOUNTER 2022-02-18 11:14 | Emergency (ER) | payer MEDICARE, OTHER ==
[~2022-02-18] VITALS: Ht 165.1 cm; Wt 70.3 kg
[~2022-02-18 11:14] MED LIST changes: +ALBU90OI INH; +DOXY100 PO; +FLUTICASONE-SA1 EAC1 INH; +GUAI600T33 PO; +Tessalon200 MG PO
[2022-02-18] MEDS ORDERED: CLOP75 PO (11:58)
[2022-02-18] MEDS ORDERED: ATOR40TA PO (11:59)
[2022-02-18] MEDS ORDERED: NITR.4SL SL (12:00)
[2022-02-18 12:21] LABS: Albumin, Blood 2.7 g/dL (3.4-5.0); Bilirubin, Total 0.5 mg/dL (0.1-1.0); Bun/Creatinine Ratio 15.3 (12.0-20.0); Creatinine, Blood 0.91 mg/dL (0.40-1.00); Globulin, Blood 2.6 g/dL (2.2-4.0); Potassium, Blood 3.4 mmol/L (3.5-5.5); Total Protein, Blood 5.3 g/dL (6.4-8.2)
[2022-02-18 13:14] LABS: BASOPHILS ABSOLUTE AUTO 0.04 K/mm3 (0.00-0.23); BASOPHILS PERCENT AUTO 0 % (0-2); EOSINOPHILS ABSOLUTE AUTO 0.01 K/mm3 (0.00-0.68); EOSINOPHILS PERCENT AUTO 0 % (0-6); Hematocrit 36.4 % (33.0-51.0); Hemoglobin 12.1 g/dL (11.5-16.0); IMMATURE GRAN ABSOLUTE AUTO 0.35 K/mm3 (0.00-0.10); IMMATURE GRAN PERCENT AUTO 3 % (0-1); LYMPHOCYTES ABSOLUTE AUTO 1.45 K/mm3 (0.84-5.20); LYMPHOCYTES PERCENT AUTO 11 % (21-46); MONOCYTES ABSOLUTE AUTO 0.87 K/mm3 (0.16-1.47); MONOCYTES PERCENT AUTO 6 % (4-13); Mean Corpuscular HGB 31.7 pg (26.0-34.0); Mean Corpuscular HGB Conc 33.2 g/dL (31.5-36.5); Mean Corpuscular Volume 95 fL (80-100); Mean Platelet Volume 8.6 fL (9.1-12.4); NEUTROPHILS ABSOLUTE AUTO 11.05 K/mm3 (1.96-9.15); NEUTROPHILS PERCENT AUTO 80 % (41-73); Platelet Count 261 K/mm3 (150-400); RDW Coefficient Variation 16.1 % (11.7-14.2); RDW Standard Deviation 55.2 fL (35.1-46.3); Red Blood Cell Count 3.82 M/mm3 (3.80-5.20); White Blood Cell Count 13.77 K/mm3 (4.00-11.30)
== END 2022-02-18 15:38 | disposition home or self-care (01) ==
LOC: ER 11:14
PROVIDERS: Student in an Organized Health Care Education/Training Program
DX: R55 Syncope and collapse (principal); I10 Essential (primary) hypertension; K21.9 Gastro-esophageal reflux disease without esophagitis; R07.9 Chest pain, unspecified; R79.89 Other specified abnormal findings of blood chemistry; T46.3X5A Adverse effect of coronary vasodilators, initial encounter; Z88.2 Allergy status to sulfonamides; Z88.1 Allergy status to other antibiotic agents; Z88.5 Allergy status to narcotic agent; Z79.899 Other long term (current) drug therapy
CPT/HCPCS: 36415; 71046; 80053; 84484; 85025; 93005; 93010; 99284-25; A9270

== ENCOUNTER 2022-02-22 11:22 | Observation (INO) | payer MEDICARE, OTHER ==
[~2022-02-22] VITALS: Ht 165.1 cm; Wt 68.5 kg
[~2022-02-22 11:22] MED LIST changes: +ATOR40TA PO; +CLOP75 PO
[2022-02-22 12:15] LABS: BASOPHILS ABSOLUTE AUTO 0.03 K/mm3 (0.00-0.23); BASOPHILS PERCENT AUTO 0 % (0-2); EOSINOPHILS ABSOLUTE AUTO 0.04 K/mm3 (0.00-0.68); EOSINOPHILS PERCENT AUTO 0 % (0-6); Hematocrit 39.8 % (33.0-51.0); Hemoglobin 13.8 g/dL (11.5-16.0); IMMATURE GRAN ABSOLUTE AUTO 0.12 K/mm3 (0.00-0.10); IMMATURE GRAN PERCENT AUTO 1 % (0-1); LYMPHOCYTES ABSOLUTE AUTO 0.77 K/mm3 (0.84-5.20); LYMPHOCYTES PERCENT AUTO 5 % (21-46); MONOCYTES ABSOLUTE AUTO 1.64 K/mm3 (0.16-1.47); MONOCYTES PERCENT AUTO 10 % (4-13); Mean Corpuscular HGB 31.4 pg (26.0-34.0); Mean Corpuscular HGB Conc 34.7 g/dL (31.5-36.5); Mean Corpuscular Volume 91 fL (80-100); Mean Platelet Volume 8.9 fL (9.1-12.4); NEUTROPHILS ABSOLUTE AUTO 14.44 K/mm3 (1.96-9.15); NEUTROPHILS PERCENT AUTO 85 % (41-73); Platelet Count 245 K/mm3 (150-400); RDW Coefficient Variation 15.2 % (11.7-14.2); RDW Standard Deviation 49.6 fL (35.1-46.3); White Blood Cell Count 17.04 K/mm3 (4.00-11.30)
[2022-02-22 12:31] LABS: Albumin, Blood 3.2 g/dL (3.4-5.0); Albumin/Globulin Ratio 0.9 (0.8-1.8); Bilirubin, Total 1.1 mg/dL (0.1-1.0); Bun/Creatinine Ratio 10.5 (12.0-20.0); Calcium, Blood 9.6 mg/dL (8.5-10.1); Creatinine, Blood 0.76 mg/dL (0.40-1.00); Globulin, Blood 3.6 g/dL (2.2-4.0); Potassium, Blood 3.6 mmol/L (3.5-5.5); Total Protein, Blood 6.8 g/dL (6.4-8.2)
[2022-02-22 13:20] LABS: Influenza A, PCR NEGATIVE (NEGATIVE); Influenza B, PCR NEGATIVE (NEGATIVE); Resp Syncytial Virus, PCR NEGATIVE (NEGATIVE); SARS-Cov-2 (COVID-19) PCR, MMC NEGATIVE (NEGATIVE)
--- NOTE | 2022-02-22 18:29 | NUR ---
ADMIT NOTE PATIENT NEW ADMIT TO UNIT AT 1600 FROM ER. ALERT AND ORIENTED. RESTING BED. ROOM AIR, DENIES CHEST PAIN AT THIS TIME. REPORTS NAUSEA AND 2/10 BACK PAIN. ADMIT HISTORY AND ASSESSMENT COMPLETE. TELE NSR IN S WITH PAC'S. SCDS IN PLACE. IV FLUID RUNNING. CARDIAC DIET AND LIQUIDS. POOR APPETITE. PATIENT HAS NOT BEEN OUT OF BED AT THIS TIME. CARDIOLOGY SAW PATIENT IN ROOM. SPOUSE AND SON WERE ATTENTIVE AT BEDSIDE.
--- NOTE | 2022-02-23 04:50 | NUR ---
SHIFT SUMMARY A/OX4, SBA TO BSC. PLEASANT AND COOPERATIVE WITH CARE. DENIES CHEST PAIN/PRESSURE. TELE RUNNING SR IN THE 90S. VSS, NO ACUTE CHANGES AT THIS TIME. BED IN LOWEST POSITION WITH CALL LIGHT IN REACH. WILL CONTINUE TO MONITOR AND REPORT TO ONCOMING RN.
[2022-02-23 06:03] LABS: Bun/Creatinine Ratio 12.7 (12.0-20.0); Calcium, Blood 8.6 mg/dL (8.5-10.1); Creatinine, Blood 0.63 mg/dL (0.40-1.00); Potassium, Blood 3.8 mmol/L (3.5-5.5)
--- NOTE | 2022-02-23 16:34 | NUR ---
SHIFT SUMMARY PATIENT ALERT AND ORIENTED THROUGHOUT SHIFT. TOLERATING CARDIAC DIET AND LIQUIDS. ECHO AND CT CHEST COMPLETED TODAY. HEAD BONE GRINDER SIGNED OFF. CLEARED BY PHYSICAL THERAPY FOR SBA IN ROOM. NSR ON TELE. SALINE LOCKED. DENIES CHEST PAIN AND WEAKNESS IS IMPROVED. PROBABLE DISCHARGE HOME TOMORROW 02/24/22.
--- NOTE | 2022-02-24 05:59 | NUR ---
SHIFT SUMMARY A/OX4, SBA WITH FWW TO BATHROOM. DENIES PAIN OR SOB. TELE SR IN THE 80S. VSS, NO ACUTE CHANGES AT THIS TIME. BED IN LOWEST POSITION WITH CALL LIGHT IN REACH. WILL CONTINUE TO MONITOR AND REPORT TO ONCOMING RN.
[2022-02-24] MEDS ORDERED: AMOCLA875 PO (17:11)
[2022-02-24] MEDS ORDERED: ASPI81CH PO (17:12)
[2022-02-24] MEDS ORDERED: HYDSUL200 PO (17:14)
[2022-02-24] MEDS ORDERED: METTREX2.5 PO (17:15)
[2022-02-24] MEDS ORDERED: ONDA4ODT MM (17:16)
[2022-02-24] MEDS ORDERED: Prednisone10 MG PO (17:16)
--- NOTE | 2022-02-24 18:07 | NUR ---
DISCHARGE PT A&OX4 @ TIME OF DC. PROVIDED W/ WRITTEN AND VERBAL INFO, PT VERBALIZED UNDERSTANDING. MEDS FAXED TO [facility]. IV AND TELE DC/ED. TOLERATING PO INTAKE, DENIES CP/PRESSURE OR N/T. ESCOURT OUT TO [facility] VIA WC, TO PROVIDE TRANSPORT.
== END 2022-02-24 18:07 | disposition home health service (06) ==
LOC: ER 11:22 → MEDS 11:23
PROVIDERS: Emergency Medicine; Nurse Practitioner Acute Care; ADMIT Internal Medicine
DX: R07.89 Other chest pain (principal); R10.0 Acute abdomen; I21.A1 Myocardial infarction type 2; R53.1 Weakness; E87.1 Hypo-osmolality and hyponatremia; M32.9 Systemic lupus erythematosus, unspecified; I10 Essential (primary) hypertension; I25.10 Atherosclerotic heart disease of native coronary artery without angina pectoris; M10.9 Gout, unspecified; E78.5 Hyperlipidemia, unspecified; J44.9 Chronic obstructive pulmonary disease, unspecified; K21.9 Gastro-esophageal reflux disease without esophagitis; K58.9 Irritable bowel syndrome, unspecified; M06.9 Rheumatoid arthritis, unspecified; Z88.2 Allergy status to sulfonamides; Z88.1 Allergy status to other antibiotic agents; Z88.5 Allergy status to narcotic agent; Z88.8 Allergy status to other drugs, medicaments and biological substances; Z79.899 Other long term (current) drug therapy; Z20.822 Contact with and (suspected) exposure to COVID-19
CPT/HCPCS: 0241U; 36415; 71045; 71250; 80048; 80053; 83880; 84145; 84484; 85025; 85651; 86140; 93005; 93010; 93306; 94640; 94664; 94760; 96372; 97116; 97161; 99285-25; A9270; G0378; J1650; J7030; J7040; J7512; J8610

== ENCOUNTER 2022-03-20 14:02 | Inpatient (IN) | payer MEDICARE, OTHER ==
[~2022-03-20] VITALS: Ht 165.1 cm; Wt 72.3 kg
[~2022-03-20 14:02] MED LIST changes: +ASPI81CH PO; +Prednisone10 MG PO
[2022-03-20 14:27] LABS: BASOPHILS ABSOLUTE AUTO 0.03 K/mm3 (0.00-0.23); BASOPHILS PERCENT AUTO 0 % (0-2); EOSINOPHILS PERCENT AUTO 0 % (0-6); Hemoglobin 16.4 g/dL (11.5-16.0); IMMATURE GRAN ABSOLUTE AUTO 0.04 K/mm3 (0.00-0.10); IMMATURE GRAN PERCENT AUTO 1 % (0-1); LYMPHOCYTES ABSOLUTE AUTO 0.79 K/mm3 (0.84-5.20); LYMPHOCYTES PERCENT AUTO 12 % (21-46); MONOCYTES ABSOLUTE AUTO 0.88 K/mm3 (0.16-1.47); MONOCYTES PERCENT AUTO 13 % (4-13); Mean Corpuscular HGB 32.7 pg (26.0-34.0); Mean Corpuscular HGB Conc 34.2 g/dL (31.5-36.5); Mean Corpuscular Volume 96 fL (80-100); Mean Platelet Volume 9.7 fL (9.1-12.4); NEUTROPHILS ABSOLUTE AUTO 5.11 K/mm3 (1.96-9.15); NEUTROPHILS PERCENT AUTO 75 % (41-73); Platelet Count 210 K/mm3 (150-400); RDW Coefficient Variation 15.9 % (11.7-14.2); RDW Standard Deviation 55.8 fL (35.1-46.3); Red Blood Cell Count 5.01 M/mm3 (3.80-5.20); White Blood Cell Count 6.85 K/mm3 (4.00-11.30)
[2022-03-20 14:39] LABS: Source, Urine Foley catheter
[2022-03-20 14:44] LABS: Albumin, Blood 3.7 g/dL (3.4-5.0); Albumin/Globulin Ratio 1.2 (0.8-1.8); Bilirubin, Total 0.6 mg/dL (0.1-1.0); Calcium, Blood 9.7 mg/dL (8.5-10.1); Globulin, Blood 3.2 g/dL (2.2-4.0); Potassium, Blood 3.8 mmol/L (3.5-5.5); Total Protein, Blood 6.9 g/dL (6.4-8.2)
[2022-03-20 15:01] LABS: Appearance, Urine Clear (Clear); Bilirubin, Urine Neg (Neg); Blood, Urine 1+ (Neg); Color, Urine Yellow (P-Yellow); Glucose Qualitative, Urine Neg (Neg); Ketones, Urine 3+ (Neg); Leukocyte Esterase, Urine Neg (Neg); Nitrite, Urine Neg (Neg); Protein, Urine 2+ (Neg); Urobilinogen, Urine NORM (Normal)
[2022-03-20 15:13] LABS: White Blood Cells, Urine 0-2 /hpf (0-5)
[2022-03-20 15:14] LABS: Bacteria Few /hpf; Squamous Epithelial Cells Mod /hpf (Few)
[2022-03-20 16:00] LABS: International Normalized Ratio 1.15
[2022-03-20 19:43] LABS: Influenza A, PCR NEGATIVE (NEGATIVE); Influenza B, PCR NEGATIVE (NEGATIVE); Resp Syncytial Virus, PCR NEGATIVE (NEGATIVE)
[2022-03-20 19:51] LABS: Hemoglobin 12.7 g/dL (11.5-16.0)
[2022-03-20 20:24] LABS: SARS-Cov-2 (COVID-19) PCR, MMC POSITIVE (NEGATIVE)
--- NOTE | 2022-03-20 21:45 | NUR ---
ADMISSION REPORT RECIEVED FROM ER NURSE. PATIENT ARRIVES TO PCU 12, SLID OVER TO PCU BED WITH ASSISTANCE OF ER/PCU STAFF. PATIENT ALERT, ANSWERS ORIENTATION QUESTIONS APPROPRIATELY BUT IS SLOW TO RESPOND. PATIENT FRUSTRATED WHEN CONVERSING WITH STAFF BECAUSE SHE "CAN'T MAKE OUT THE WORDS TO SAY" BUT CAN ANSWER SHORT ANSWER QUESTIONS APPROPRIATELY. VSS, PATIENT ON RA WITH O2 SAT >90%. DENIES CHEST PAIN AT THIS TIME. PATIENT REFUSING NIGHT TIME MEDS AND STATES "I DON'T KNOW IF I CAN KEEP THEM DOWN", OFFERED PATIENT MEDICATION FOR NAUSEA AND SHE DECLINED. CLEAN ATTENDS IN PLACE. PATIENT ORIENTED TO ROOM AND CALL LIGHT SYSTEM.
--- NOTE | 2022-03-20 23:30 | NUR ---
UPDATE CALL PLACED TO LUCIUS CLEMENT IN REGARDS TO NO TRENDING TROPONIN ORDERS. NO NEW ORDERS RECIEVED. PATIENT CONTINUES TO DENY CHEST PAIN AT THIS TIME.
[2022-03-20 23:45] LABS: Hematocrit 40.4 % (33.0-51.0); Hemoglobin 13.9 g/dL (11.5-16.0)
[2022-03-21 04:47] LABS: BASOPHILS ABSOLUTE AUTO 0.02 K/mm3 (0.00-0.23); BASOPHILS PERCENT AUTO 0 % (0-2); EOSINOPHILS ABSOLUTE AUTO 0.01 K/mm3 (0.00-0.68); EOSINOPHILS PERCENT AUTO 0 % (0-6); Hematocrit 38.3 % (33.0-51.0); IMMATURE GRAN ABSOLUTE AUTO 0.03 K/mm3 (0.00-0.10); IMMATURE GRAN PERCENT AUTO 0 % (0-1); LYMPHOCYTES ABSOLUTE AUTO 0.98 K/mm3 (0.84-5.20); LYMPHOCYTES PERCENT AUTO 14 % (21-46); MONOCYTES ABSOLUTE AUTO 0.63 K/mm3 (0.16-1.47); MONOCYTES PERCENT AUTO 9 % (4-13); Mean Corpuscular HGB 32.7 pg (26.0-34.0); Mean Corpuscular HGB Conc 33.9 g/dL (31.5-36.5); Mean Corpuscular Volume 96 fL (80-100); Mean Platelet Volume 9.7 fL (9.1-12.4); NEUTROPHILS ABSOLUTE AUTO 5.16 K/mm3 (1.96-9.15); NEUTROPHILS PERCENT AUTO 76 % (41-73); Platelet Count 149 K/mm3 (150-400); RDW Coefficient Variation 16.2 % (11.7-14.2); RDW Standard Deviation 57.5 fL (35.1-46.3); Red Blood Cell Count 3.98 M/mm3 (3.80-5.20); White Blood Cell Count 6.83 K/mm3 (4.00-11.30)
[2022-03-21 05:07] LABS: Albumin/Globulin Ratio 1.3 (0.8-1.8); Bilirubin, Total 0.5 mg/dL (0.1-1.0); Bun/Creatinine Ratio 25.6 (12.0-20.0); Calcium, Blood 8.3 mg/dL (8.5-10.1); Creatinine, Blood 0.94 mg/dL (0.40-1.00); Globulin, Blood 2.3 g/dL (2.2-4.0); Magnesium, Blood 1.4 mg/dL (1.6-2.4); Potassium, Blood 3.4 mmol/L (3.5-5.5); Total Protein, Blood 5.3 g/dL (6.4-8.2)
--- NOTE | 2022-03-21 05:44 | NUR ---
SHIFT SUMMARY PATIENT ALERT, ANSWERS ORIENTATION QUESTIONS APPROPRIATELY BUT IS SLOW TO RESPOND AT TIMES AND HAS TROUBLE FINDING WORDS. VSS, PATIENT REMAINS ON RA WITH O2 SAT >90%. DENIES CHEST PAIN OR SOB. PROSTHODONTIST INSERTED POWERLGIDE OVERNIGHT, NS INFUSING PER EMAR. BED ALARM ON FOR SAFETY. NO OTHER SIGNIFICANT CHANGES, WILL REPORT TO DAY SHIFT RN.
[2022-03-21 09:39] LABS: C DIFFICILE DNA NEGATIVE (Negative)
--- NOTE | 2022-03-21 16:31 | NUR ---
SHIFT SUMMARY Pt alert, oriented X3; calm and cooperative with care. Pt up to bathroom with 1 person assist. Pt denies pain, chest pain, sob, nausea and dizziness. Spo2 >90% on ra, breathing even and unlabored, ls dim in bases, nonproductive cough. Pt requesting cough medicine, notified Dr Myrick, new order entered. Tele sinus-sinus tach 70-110's, trending down since this am. Pt abd soft, nontender, with hypoactive bt. Other vss. No other acute changes noted. Will continue to monitor until report given to oncoming rn.
--- NOTE | 2022-03-21 23:45 | NUR ---
MS. WATKINS HAD A SUDDEN DROP IN HER SpO2 TO THE 60S. IMMEDIATELY UPON BEING AWAKENED PT'S OXYGEN LEVEL REBOUNDED INTO THE HIGH 90 PERCENTILE RANGE. I ASKED MS. WATKINS IF SHE HAS ANY HISTORY OF SLEEP APNEA. WHEN SHE SAID YES, I ASKED IF SHE WEARS A CPAP AT HOME. SHE SAID THAT SHE IS SUPPOSED TO BUT DOES NOT USE IT.
[2022-03-22 05:25] LABS: BASOPHILS PERCENT AUTO 0 % (0-2); EOSINOPHILS PERCENT AUTO 0 % (0-6); Hematocrit 30.4 % (33.0-51.0); Hemoglobin 10.3 g/dL (11.5-16.0); IMMATURE GRAN ABSOLUTE AUTO 0.01 K/mm3 (0.00-0.10); IMMATURE GRAN PERCENT AUTO 0 % (0-1); LYMPHOCYTES ABSOLUTE AUTO 0.45 K/mm3 (0.84-5.20); LYMPHOCYTES PERCENT AUTO 13 % (21-46); MONOCYTES ABSOLUTE AUTO 0.27 K/mm3 (0.16-1.47); MONOCYTES PERCENT AUTO 8 % (4-13); Mean Corpuscular HGB 32.8 pg (26.0-34.0); Mean Corpuscular HGB Conc 33.9 g/dL (31.5-36.5); Mean Corpuscular Volume 97 fL (80-100); Mean Platelet Volume 9.4 fL (9.1-12.4); NEUTROPHILS ABSOLUTE AUTO 2.78 K/mm3 (1.96-9.15); NEUTROPHILS PERCENT AUTO 79 % (41-73); Platelet Count 118 K/mm3 (150-400); RDW Coefficient Variation 16.5 % (11.7-14.2); RDW Standard Deviation 58.3 fL (35.1-46.3); Red Blood Cell Count 3.14 M/mm3 (3.80-5.20); White Blood Cell Count 3.51 K/mm3 (4.00-11.30)
--- NOTE | 2022-03-22 05:47 | NUR ---
SHIFT SUMMARY PATIENT ALERT, ORIENTED x3, MORE SLEEPY THIS SHIFT BUT WAKES TO VERBAL STIMULI. VSS, PATIENT PLACED ON 2L OVERNIGHT D/T SIGNIFICANT DESATTING WHILE SLEEPING. PATIENT WILL DESAT LOW 40% BUT IS ABLE TO RECOVER AFTER WAKING UP AND DEEP BREATHING. PATIENT STATES THAT SHE WAS TOLD SHE NEEDED A CPAP BUT DOES NOT WEAR ONE AT HOME. CONTINUES TO DENY CHEST PAIN OR PRESSURE. UP STANDBY ASSIST TO BATHROOM, ADEQUATE URINE OUTPUT THIS SHIFT. NS INFUSING PER EMAR. NO OTHER SIGNIFICANT CHANGES, WILL REPORT TO DAY SHIFT RN.
[2022-03-22 05:49] LABS: Albumin, Blood 2.4 g/dL (3.4-5.0); Albumin/Globulin Ratio 1.1 (0.8-1.8); Bilirubin, Total 0.3 mg/dL (0.1-1.0); Bun/Creatinine Ratio 27.2 (12.0-20.0); Calcium, Blood 7.5 mg/dL (8.5-10.1); Creatinine, Blood 0.77 mg/dL (0.40-1.00); Globulin, Blood 2.1 g/dL (2.2-4.0); Magnesium, Blood 1.6 mg/dL (1.6-2.4); Potassium, Blood 3.9 mmol/L (3.5-5.5); Total Protein, Blood 4.5 g/dL (6.4-8.2)
[2022-03-22 12:39] LABS: BASOPHILS ABSOLUTE AUTO 0.01 K/mm3 (0.00-0.23); BASOPHILS PERCENT AUTO 0 % (0-2); EOSINOPHILS PERCENT AUTO 0 % (0-6); Hematocrit 32.9 % (33.0-51.0); Hemoglobin 10.8 g/dL (11.5-16.0); IMMATURE GRAN ABSOLUTE AUTO 0.02 K/mm3 (0.00-0.10); IMMATURE GRAN PERCENT AUTO 0 % (0-1); LYMPHOCYTES ABSOLUTE AUTO 0.35 K/mm3 (0.84-5.20); LYMPHOCYTES PERCENT AUTO 7 % (21-46); MONOCYTES ABSOLUTE AUTO 0.22 K/mm3 (0.16-1.47); MONOCYTES PERCENT AUTO 4 % (4-13); Mean Corpuscular HGB Conc 32.8 g/dL (31.5-36.5); Mean Corpuscular Volume 97 fL (80-100); Mean Platelet Volume 9.2 fL (9.1-12.4); NEUTROPHILS ABSOLUTE AUTO 4.54 K/mm3 (1.96-9.15); NEUTROPHILS PERCENT AUTO 88 % (41-73); Platelet Count 127 K/mm3 (150-400); RDW Coefficient Variation 16.6 % (11.7-14.2); RDW Standard Deviation 59.7 fL (35.1-46.3); Red Blood Cell Count 3.38 M/mm3 (3.80-5.20); White Blood Cell Count 5.14 K/mm3 (4.00-11.30)
--- NOTE | 2022-03-22 18:53 | NUR ---
SHIFT SUMMARY: NO ACUTE CHANGES T/OUT SHIFT. PT A&O, USING CALL LIGHT AND ANSWERING QUESTIONS APPROPRIATELY. O2 SATS MAINTAINED >93% ON RA, SR ON MONITOR, SBA TO RESTROOM IN ROOM. STOOL SAMPLE COLLECTED FOR GUAIAC TEST, RESULTS PENDING. WILL CONTINUE TO MONITOR AND TREAT ACCORDINGLY UNTIL CHANGE OF SHIFT.
[2022-03-23 04:42] LABS: Hematocrit 30.5 % (33.0-51.0); Hemoglobin 9.9 g/dL (11.5-16.0)
[2022-03-23 05:12] LABS: Albumin, Blood 2.6 g/dL (3.4-5.0); Albumin/Globulin Ratio 1.4 (0.8-1.8); Bilirubin, Total 0.2 mg/dL (0.1-1.0); Calcium, Blood 8.1 mg/dL (8.5-10.1); Creatinine, Blood 0.95 mg/dL (0.40-1.00); Globulin, Blood 1.9 g/dL (2.2-4.0); Potassium, Blood 3.7 mmol/L (3.5-5.5); Total Protein, Blood 4.5 g/dL (6.4-8.2)
--- NOTE | 2022-03-23 05:17 | NUR ---
SHIFT SUMMARY PT IS A&OX4, 1P SBA FOR TX IN ROOM, MOVES IND IN BED, CALLS APPROPRIATLY, AND HAS BEEN SLEEPING MOST OF THE SHIFT. PT WAS PLACED ON 2L NC DURING THE NIGHT BECAUSE SHE DROPS TO MID 80'S SP02 WHILE SLEEPING. SHE DROPS DOWN FOR LESS THAN A MINUTE. ALL OTHER VS HAVE BEEN STABLE THROUGHOUT THE SHIFT. THE PT WAS QUESITONING IF SHE CAN BE SET UP FOR A SLEEP STUDY, PT/OT, AND HOME HEALTH WHEN D/C'D. PT HAS NO COMPLAINTS, BED IN LOW, CALL LIGHT IN REACH, AND SCD'S ON. WILL CONTINUE TO MONITOR UNTIL REPORT IS GIVEN TO THE ONCOMING SHIFT'S NURSE.
[2022-03-23 09:47] LABS: Stool Occult Blood Guaiac 1 Pos (Neg)
--- NOTE | 2022-03-23 12:01 | NUR ---
PT PENDING DISCHARGE. DISCHARGE PAPERWORK GIVEN. TELE AND POWERGLIDE DC'D. PT IN ROOM AWAITING FOR RIDE HOME. NO ACUTE DISTRESS.
[2022-03-30] MEDS ORDERED: HYDSUL200 PO ×2 (15:42)
== END 2022-03-23 12:25 | disposition home or self-care (01) | DRG 177 ==
LOC: ER 14:02 → PCU 14:03
PROVIDERS: Emergency Medicine; Internal Medicine; Nurse Practitioner Acute Care; Student in an Organized Health Care Education/Training Program; ADMIT Internal Medicine
PROC: 8E0ZXY6 Isolation (ICD-10-PCS; principal; 2022-03-21)
DX: U07.1 COVID-19 (principal); I21.A1 Myocardial infarction type 2; E87.1 Hypo-osmolality and hyponatremia; E87.2 Acidosis; R65.10 Systemic inflammatory response syndrome (SIRS) of non-infectious origin without acute organ dysfunction; I25.10 Atherosclerotic heart disease of native coronary artery without angina pectoris; D64.9 Anemia, unspecified; R77.8 Other specified abnormalities of plasma proteins; M79.7 Fibromyalgia; M10.9 Gout, unspecified; E78.00 Pure hypercholesterolemia, unspecified; I10 Essential (primary) hypertension; E87.6 Hypokalemia; E83.42 Hypomagnesemia; M06.9 Rheumatoid arthritis, unspecified; M32.9 Systemic lupus erythematosus, unspecified; R09.02 Hypoxemia; K58.9 Irritable bowel syndrome, unspecified; R19.5 Other fecal abnormalities; R74.8 Abnormal levels of other serum enzymes; K76.0 Fatty (change of) liver, not elsewhere classified; K21.9 Gastro-esophageal reflux disease without esophagitis; M51.9 Unspecified thoracic, thoracolumbar and lumbosacral intervertebral disc disorder; M54.9 Dorsalgia, unspecified; G89.29 Other chronic pain; J45.909 Unspecified asthma, uncomplicated; R74.02 Elevation of levels of lactic acid dehydrogenase [LDH]; E86.0 Dehydration; E86.1 Hypovolemia; Z88.8 Allergy status to other drugs, medicaments and biological substances; Z88.2 Allergy status to sulfonamides; Z98.49 Cataract extraction status, unspecified eye; Z98.890 Other specified postprocedural states; Z90.49 Acquired absence of other specified parts of digestive tract; Z90.710 Acquired absence of both cervix and uterus; Z88.1 Allergy status to other antibiotic agents; Z88.5 Allergy status to narcotic agent; Z79.899 Other long term (current) drug therapy; Z79.52 Long term (current) use of systemic steroids; Z79.51 Long term (current) use of inhaled steroids; Z79.02 Long term (current) use of antithrombotics/antiplatelets; Z79.82 Long term (current) use of aspirin
CPT/HCPCS: 0241U; 36415; 71045; 74177; 80053; 81001; 82272; 83605; 83690; 83735; 84484; 85014; 85018; 85025; 85610; 86850; 86900; 86901; 87015; 87040; 87045; 87046; 87205; 87493; 87899; 93005; 93010; 94640; 94664; 94760; 94762; 96365-59; 96367; 96375; 97162; 97530; 99285-25; A9270; C1751; C9113; G0378; J2405; J2543; J3010; J3370; J3475; J7030; J7512; J8610; Q9967

== ENCOUNTER 2022-03-30 08:00 | Observation (INO) | payer MEDICARE, OTHER ==
[~2022-03-30] VITALS: Ht 165.1 cm; Wt 67.2 kg
[2022-03-30 08:44] LABS: BASOPHILS ABSOLUTE AUTO 0.02 K/mm3 (0.00-0.23); BASOPHILS PERCENT AUTO 0 % (0-2); EOSINOPHILS ABSOLUTE AUTO 0.01 K/mm3 (0.00-0.68); EOSINOPHILS PERCENT AUTO 0 % (0-6); Hematocrit 42.5 % (33.0-51.0); Hemoglobin 14.7 g/dL (11.5-16.0); IMMATURE GRAN ABSOLUTE AUTO 0.03 K/mm3 (0.00-0.10); IMMATURE GRAN PERCENT AUTO 1 % (0-1); LYMPHOCYTES ABSOLUTE AUTO 0.67 K/mm3 (0.84-5.20); LYMPHOCYTES PERCENT AUTO 13 % (21-46); MONOCYTES ABSOLUTE AUTO 0.44 K/mm3 (0.16-1.47); MONOCYTES PERCENT AUTO 9 % (4-13); Mean Corpuscular HGB 32.5 pg (26.0-34.0); Mean Corpuscular HGB Conc 34.6 g/dL (31.5-36.5); Mean Corpuscular Volume 94 fL (80-100); Mean Platelet Volume 10.1 fL (9.1-12.4); NEUTROPHILS ABSOLUTE AUTO 4.02 K/mm3 (1.96-9.15); NEUTROPHILS PERCENT AUTO 77 % (41-73); Platelet Count 136 K/mm3 (150-400); RDW Standard Deviation 54.4 fL (35.1-46.3); Red Blood Cell Count 4.53 M/mm3 (3.80-5.20); White Blood Cell Count 5.19 K/mm3 (4.00-11.30)
[2022-03-30 09:00] LABS: Albumin, Blood 3.5 g/dL (3.4-5.0); Albumin/Globulin Ratio 1.3 (0.8-1.8); Bilirubin, Total 1.2 mg/dL (0.1-1.0); Bun/Creatinine Ratio 22.2 (12.0-20.0); Calcium, Blood 8.8 mg/dL (8.5-10.1); Creatinine, Blood 0.81 mg/dL (0.40-1.00); Globulin, Blood 2.7 g/dL (2.2-4.0); Magnesium, Blood 1.1 mg/dL (1.6-2.4); Potassium, Blood 3.1 mmol/L (3.5-5.5); Total Protein, Blood 6.2 g/dL (6.4-8.2)
[2022-03-30 09:25] LABS: Source, Urine Clean Catch
[2022-03-30 09:45] LABS: Appearance, Urine Clear (Clear); Blood, Urine 1+ (Neg); Color, Urine Yellow (P-Yellow); Glucose Qualitative, Urine Neg (Neg); Ketones, Urine 4+ (Neg); Leukocyte Esterase, Urine 1+ (Neg); Nitrite, Urine Neg (Neg); Protein, Urine 2+ (Neg); Urobilinogen, Urine 1+ (Normal)
[2022-03-30 09:59] LABS: Bilirubin, Urine 1+ (Neg)
[2022-03-30 10:01] LABS: Granular Casts 0-2 /lpf (0); Red Blood Cells, Urine 0-2 /hpf (0-2)
[2022-03-30 10:02] LABS: Bacteria Mod /hpf; Squamous Epithelial Cells Rare /hpf (Few)
[2022-03-30] MEDS ORDERED: METTREX2.5 PO (12:39)
[2022-03-30] MEDS ORDERED: ATOR10 PO (12:39)
[2022-03-30] MEDS ORDERED: ALLO300 PO (12:40)
[2022-03-30] MEDS ORDERED: Bentyl10 MG PO (12:40)
[2022-03-30] MEDS ORDERED: LEFLUNOMIDE10 M2 PO (12:40)
[2022-03-30] MEDS ORDERED: PLAVIX75 MG PO (12:40)
[2022-03-30] MEDS ORDERED: BUDESONIDE-FO10.2 G3 INH (12:40)
[2022-03-30] MEDS ORDERED: HYDSUL200 PO (15:42)
--- NOTE | 2022-03-30 18:16 | NUR ---
SHIFT SUMMARY: RECIVED REPORT FROM ED RN CHIQUI. PATIENT ARRIVED TO ROOM VIA GURNEY AROUND 1620 FROM ED. PATIENT TRANSFERRED TO BED USING SLIDER SHEET. PATIENT ORIENTED TO ROOM AND CALL SYSTEM. PATIENT A&OX4. PLEASANT AND COOPERATIVE WITH CARE. LUNGS HEARD WHEEZES ON THE BASES. RA WITH SPO2 ABOVE 90%. SCATTERED BRUISING T/O BILAT UPPER & LOWER EXTREMETIES. INFUSING PHOTASSIUM CHLORIDE AT 67 MLS/HR. RECIEVED ONE DOSE OF PRN NAUSEA MEDS. BED IN LOWEST POSITION, LOCKED AND CALL LIGHT WITHIN REACH.
[2022-03-31 05:35] LABS: BASOPHILS ABSOLUTE AUTO 0.01 K/mm3 (0.00-0.23); BASOPHILS PERCENT AUTO 0 % (0-2); EOSINOPHILS PERCENT AUTO 0 % (0-6); Hematocrit 35.9 % (33.0-51.0); IMMATURE GRAN ABSOLUTE AUTO 0.02 K/mm3 (0.00-0.10); IMMATURE GRAN PERCENT AUTO 1 % (0-1); LYMPHOCYTES ABSOLUTE AUTO 0.37 K/mm3 (0.84-5.20); LYMPHOCYTES PERCENT AUTO 11 % (21-46); MONOCYTES ABSOLUTE AUTO 0.32 K/mm3 (0.16-1.47); MONOCYTES PERCENT AUTO 10 % (4-13); Mean Corpuscular HGB 32.5 pg (26.0-34.0); Mean Corpuscular HGB Conc 33.4 g/dL (31.5-36.5); Mean Corpuscular Volume 97 fL (80-100); Mean Platelet Volume 9.5 fL (9.1-12.4); NEUTROPHILS ABSOLUTE AUTO 2.62 K/mm3 (1.96-9.15); NEUTROPHILS PERCENT AUTO 78 % (41-73); Platelet Count 114 K/mm3 (150-400); Red Blood Cell Count 3.69 M/mm3 (3.80-5.20); White Blood Cell Count 3.34 K/mm3 (4.00-11.30)
[2022-03-31 06:11] LABS: Albumin, Blood 2.4 g/dL (3.4-5.0); Bilirubin, Total 0.7 mg/dL (0.1-1.0); Bun/Creatinine Ratio 29.2 (12.0-20.0); Calcium, Blood 7.4 mg/dL (8.5-10.1); Creatinine, Blood 0.72 mg/dL (0.40-1.00); Globulin, Blood 2.4 g/dL (2.2-4.0); Magnesium, Blood 1.1 mg/dL (1.6-2.4); Potassium, Blood 4.1 mmol/L (3.5-5.5); Total Protein, Blood 4.8 g/dL (6.4-8.2)
--- NOTE | 2022-03-31 06:50 | NUR ---
NOC SHIFT SUMMARY PT ADMITTED WITH INTRACTABLE N/V AND HYPOKALEMIA. PT REMAINS NAUSEATED AND UNABLE TAKE ANYTHING BY MOUTH. ISOLATION NO LONGER NEEDED PER INFECTION PREVENTION. MG 1.1 THIS AM. UNABLE TO ALERT MD, TIME WAS NEAR SHIFT CHANGE. INFORMED ON-COMING RN. NO ISSUES NOTED OVERNIGHT.
--- NOTE | 2022-03-31 07:23 | NUR ---
CALLED DR. KEBEDE AT 0723 REGARDING PATIENT MAG OF 1.1 LAB RESULT WAS DRAWN AT 0519 THIS MORNING. RECIEVE NO NEW ORDER AT THIS TIME.
[2022-03-31] MEDS ORDERED: ATOR40TA PO (16:50)
--- NOTE | 2022-03-31 16:51 | NUR ---
SHIFT SUMMARY: PATIENT A&OX4. PATIENT REPORTS SHE IS "SOMEWHAT A LTTLE BIT BETTER". PATIENT WAS ABLE TO PARTICIPATE WITH OT THIS AM TRANSFERRING FROM BED TO BSC AND SITTING UP IN RECLINER CHAIR WITH SBA/1P, FWW AND GAIT BELT. PATIENT TOLERATED SITTING UP IN RECLINER CHAIR FOR ABOUT AN HOUR AND A HALF, AND BECOME MORE NAUSEOUS. PATIENT REQUESTED TO BE BACK IN BED. PATIENT HAD TWO EPISODE OF VOMITING THIS SHIFT. RECIEVED PRN AND SCHEDULED MEDS FOR NAUSEA PER EMAR. PATIENT HAS NOT BEEN TOLERATING PO INTAKE THIS SHIFT. PATIENT ABDOMEN IS FIRM AND COULD NOT RECALL OF HER LAST BM. PER SPOUSE PATIENT LAST BM WAS TWO WEEKS AGO. DR. KEBEDE WAS NOTIFIED ABOUT THIS INFORMATION. DR. KEBEDE ORDER CT OF THE ABDOMEN AND WAS DONE THIS AFTERNOON. PATIENT SPOUSE WAS CONCERNED AND REQUESTING FOR UPPER GI CONSULT. THIS RN COORDINATED WITH DR. KEBEDE AND DR. AMANDA SPOUSE REQUEST. PER DR. KEBEDE SHE SPOKE TO DR. HANDY REGARDING PATIENT CONDITION AND AGREE TO SEE THE PATIENT FOR CONSULT. INFUSING LR AT 100 MLS/HR. USES CALL LIGHT APPROPRIATELY. BED IN LOWEST POSITION, LOCKED AND CALL LIGHT IN REACH.
[2022-04-01 05:47] LABS: Hematocrit 28.6 % (33.0-51.0); Hemoglobin 9.8 g/dL (11.5-16.0); Mean Corpuscular HGB 32.9 pg (26.0-34.0); Mean Corpuscular HGB Conc 34.3 g/dL (31.5-36.5); Mean Corpuscular Volume 96 fL (80-100); Mean Platelet Volume 9.9 fL (9.1-12.4); Platelet Count 112 K/mm3 (150-400); RDW Coefficient Variation 16.2 % (11.7-14.2); RDW Standard Deviation 57.3 fL (35.1-46.3); Red Blood Cell Count 2.98 M/mm3 (3.80-5.20); White Blood Cell Count 3.83 K/mm3 (4.00-11.30)
[2022-04-01 06:18] LABS: Bun/Creatinine Ratio 27.4 (12.0-20.0); Calcium, Blood 7.4 mg/dL (8.5-10.1); Creatinine, Blood 0.69 mg/dL (0.40-1.00); Magnesium, Blood 1.8 mg/dL (1.6-2.4); Potassium, Blood 3.1 mmol/L (3.5-5.5)
--- NOTE | 2022-04-01 06:24 | NUR ---
NOC SHIFT SUMMARY PT WAS AAOX4 THROUGHOUT SHIFT; CALM/COOPERATIVE AND PLEASANT. NO NAUSEA. IVF CONTINUE INFUSING FOR ADEQUATE HYDRATION. TENTAIVE EGD TODAY. NO ISSUES NOTED OVERNIGHT.
--- NOTE | 2022-04-01 07:14 | NUR ---
CALLED SUR[facility]ERY [facility]ENTER AT AROUND 0713 AND SPOKE TO STEVIE WITH REGARDS TO RAPID COVID TESTING FOR POSSIBLE PRE-OP TODAY. PER STEVIE NOT TO OBTAIN THE TESTING THEY WILL TAKE CARE OF IT DOWN IN [facility].
[2022-04-01] MEDS ORDERED: LOPE2C PO (15:22)
[2022-04-01] MEDS ORDERED: METO5A PO (15:23)
--- NOTE | 2022-04-01 18:15 | NUR ---
SHIFT SUMMARY: PATIENT A&OX4. PLEASANT AND COOPERATIVE WITH CARE. USES CALL LIGHT APPROPRIATELY. PATIENT REPORTS SHE FEELS MUCH BETTER TODAY COMPARED YESTERDAY. PATIENT WAS SITTING UP IN THE RECLINER CHAIR FOR ABOUT 3 HOURS AND TOLERATED WELL TODAY. PATIENT IS CONTINENT AND HAS BEEN AMBULATING TO BATHROOM AND BACK TO BED WITH SBA, GAITBELT AND FWW. DENIES N/V. PATIENT WAS ABLE TO TOLERATE PO INTAKE FOR BREAKFAST AND LUNCH. PATIENT REPORTS "THIS IS THE FIRST TIME I AM ABLE TO TAKE FOOD WITHOUT FEELING NAUSEATED OR THROWING UP". PATIENT WAS NPO AFTER LUNCH TODAY. PATIENT LEFT THE ROOM TO DAY SURGERY FOR EGD PROCEDURE AROUND 1734. EGD DONE AND BACK IN ROOM FROM PROCEDURE AROUND 1824. PATIENT REPORTS OF MILD ABDOMINAL PAIN. POST-OP VITALS TAKEN. DENIES CP AND SOB. BED IN LOWEST POSITION, LOCKED, AND CALL LIGHT IN REACH. FAMILY AT BEDSIDE.
--- NOTE | 2022-04-01 18:33 | NUR ---
04/01/22 1833 Arturo Mahmood HISTORY, CHART, MEDICATIONS AND ALLERGIES REVIEWED BEFORE START OF PROCEDURE. PATIENT CONFIRMS NPO STATUS AND AGREES WITH SCHEDULED PROCEDURE. 3-LEAD EKG REVIEWED WITH PHYSICIAN PRIOR TO START OF PROCEDURE. MONITOR INTACT WITH CONTINUOUS PULSE OXIMETRY,CAPNOGRAPHY, 3-LEAD EKG, INTERMITTENT BP. SUPPLEMENTAL O2 TO BE TITRATED THROUGHOUT PROCEDURE TO MAINTAIN O2 SATURATION ABOVE 90%. PATIENT DETERMINED TO BE ASA APPROPRIATE FOR PROPOFOL SEDATION PRIOR TO START OF PROCEDURE BY DR. HANDY.
--- NOTE | 2022-04-02 09:16 | NUR ---
CHEESEMAKER SUMMARY ANA SLEPT WELL AND IS READY TO TRY TO ADVANCE HER DIET THIS MORNING. NO CHANGES OVERNIGHT. PATIENT STATES MUCH EASIER TO REST IN NEW ROOM. MINIMAL COMPLAINT OF RIGHT SHOULDER PAIN WAS RESOLVED WITH 650MG OF TYLENOL.
[2022-04-02] MEDS ORDERED: PANT20 PO (14:44)
[2022-04-02] MEDS ORDERED: LOPE2C PO (14:45)
[2022-04-02] MEDS ORDERED: METO5A PO (14:45)
--- NOTE | 2022-04-02 15:37 | NUR ---
PATIENT DISCHARGED TO HOME WITH HER SPOUSE. POWERGLIDE IV AND TELEMETRY REMOVED WITHOUT INCIDENT. VERBALIZED UNDERSTANDING OF D/C INSTRUCTIONS, WILL MAKE OWN F/U APPOINTMENTS. OFF UNIT VIA W/C AT 1511. NO BELONGINGS LEFT BEHIND IN ROOM.
== END 2022-04-02 15:11 | disposition home or self-care (01) ==
LOC: ER 08:00 → MEDS 08:01
PROVIDERS: Family Medicine; Nurse Practitioner Acute Care; Physician Assistant; Student in an Organized Health Care Education/Training Program; ADMIT Internal Medicine
PROC: 0DB68ZX Excision of Stomach, Via Natural or Artificial Opening Endoscopic, Diagnostic (ICD-10-PCS; principal; 2022-04-01 15:30)
PROC: 0DB98ZX Excision of Duodenum, Via Natural or Artificial Opening Endoscopic, Diagnostic (ICD-10-PCS; principal; 2022-04-01 15:30)
DX: K29.40 Chronic atrophic gastritis without bleeding (principal); Z86.16 Personal history of COVID-19; I10 Essential (primary) hypertension; M10.9 Gout, unspecified; K21.9 Gastro-esophageal reflux disease without esophagitis; I25.10 Atherosclerotic heart disease of native coronary artery without angina pectoris; M06.9 Rheumatoid arthritis, unspecified; J45.40 Moderate persistent asthma, uncomplicated; E83.42 Hypomagnesemia; E87.6 Hypokalemia; E87.2 Acidosis; Z79.82 Long term (current) use of aspirin; Z79.02 Long term (current) use of antithrombotics/antiplatelets; M79.7 Fibromyalgia; M32.9 Systemic lupus erythematosus, unspecified; Z88.2 Allergy status to sulfonamides; Z88.5 Allergy status to narcotic agent; Z88.8 Allergy status to other drugs, medicaments and biological substances; K44.9 Diaphragmatic hernia without obstruction or gangrene; K29.80 Duodenitis without bleeding
CPT/HCPCS: 36415; 74176; 80048; 80053; 81001; 83605; 83690; 83735; 84100; 84484; 85025; 85027; 85651; 86140; 87040; 87077; 87086; 87186; 88305; 88342; 93005; 93010; 94640; 94664; 94760; 96365; 96366; 96367; 96368; 96375; 96376; 97110; 97116; 97162; 97165; 97530; 97530-CO; 97535; 97535-CO; 99285-25; A9270; C1751; C9113; G0378; J0696; J1720; J1885; J2405; J2704; J3475; J3480; J7030; J7050; J7120; J7512; J8610; P9612

== ENCOUNTER 2022-04-05 10:49 | Emergency (ER) | payer MEDICARE, OTHER ==
[~2022-04-05] VITALS: Ht 162.6 cm; Wt 68.0 kg
[~2022-04-05 10:49] MED LIST changes: +ATOR10 PO; +BUDESONIDE-FO10.2 G3 INH; +LEFLUNOMIDE10 M2 PO; +METO5A PO; +PANT20 PO; +PLAVIX75 MG PO
[2022-04-05 12:40] LABS: BASOPHILS ABSOLUTE AUTO 0.02 K/mm3 (0.00-0.23); BASOPHILS PERCENT AUTO 0 % (0-2); EOSINOPHILS PERCENT AUTO 0 % (0-6); Hemoglobin 12.3 g/dL (11.5-16.0); IMMATURE GRAN ABSOLUTE AUTO 0.03 K/mm3 (0.00-0.10); IMMATURE GRAN PERCENT AUTO 1 % (0-1); LYMPHOCYTES ABSOLUTE AUTO 0.48 K/mm3 (0.84-5.20); LYMPHOCYTES PERCENT AUTO 9 % (21-46); MONOCYTES ABSOLUTE AUTO 0.42 K/mm3 (0.16-1.47); MONOCYTES PERCENT AUTO 8 % (4-13); Mean Corpuscular HGB 31.9 pg (26.0-34.0); Mean Corpuscular HGB Conc 34.2 g/dL (31.5-36.5); Mean Corpuscular Volume 93 fL (80-100); Mean Platelet Volume 9.4 fL (9.1-12.4); NEUTROPHILS ABSOLUTE AUTO 4.35 K/mm3 (1.96-9.15); NEUTROPHILS PERCENT AUTO 82 % (41-73); Platelet Count 149 K/mm3 (150-400); RDW Coefficient Variation 15.7 % (11.7-14.2); RDW Standard Deviation 52.9 fL (35.1-46.3); Red Blood Cell Count 3.86 M/mm3 (3.80-5.20)
[2022-04-05 13:06] LABS: Albumin/Globulin Ratio 1.1 (0.8-1.8); Bilirubin, Total 1.2 mg/dL (0.1-1.0); Bun/Creatinine Ratio 11.9 (12.0-20.0); Calcium, Blood 8.9 mg/dL (8.5-10.1); Creatinine, Blood 0.93 mg/dL (0.40-1.00); Globulin, Blood 2.7 g/dL (2.2-4.0); Potassium, Blood 3.1 mmol/L (3.5-5.5); Total Protein, Blood 5.7 g/dL (6.4-8.2)
[2022-04-05] MEDS ORDERED: METO5A PO (17:20)
[2022-04-05] MEDS ORDERED: PARO20 PO (17:29)
== END 2022-04-05 18:03 | disposition home or self-care (01) ==
LOC: ER 10:49
PROVIDERS: Physician Assistant
DX: E86.0 Dehydration (principal); E87.6 Hypokalemia; R11.2 Nausea with vomiting, unspecified; I10 Essential (primary) hypertension; K21.9 Gastro-esophageal reflux disease without esophagitis; J45.909 Unspecified asthma, uncomplicated; Z88.2 Allergy status to sulfonamides; Z88.1 Allergy status to other antibiotic agents; Z88.8 Allergy status to other drugs, medicaments and biological substances; Z79.899 Other long term (current) drug therapy
CPT/HCPCS: 36415; 80053; 83605; 83690; 83880; 84484; 85025; 87040; 96365; 96366; 96375; 99284-25; A9270; C1751; C9113; J2765; J3480; J7030; J7120

== ENCOUNTER 2022-04-07 12:10 | Emergency (ER) | payer MEDICARE, OTHER ==
[~2022-04-07] VITALS: Ht 165.1 cm; Wt 68.0 kg
[~2022-04-07 12:10] MED LIST changes: +PARO20 PO
[2022-04-07 12:37] LABS: BASOPHILS ABSOLUTE AUTO 0.04 K/mm3 (0.00-0.23); BASOPHILS PERCENT AUTO 0 % (0-2); EOSINOPHILS ABSOLUTE AUTO 0.01 K/mm3 (0.00-0.68); EOSINOPHILS PERCENT AUTO 0 % (0-6); Hematocrit 37.5 % (33.0-51.0); Hemoglobin 12.9 g/dL (11.5-16.0); IMMATURE GRAN PERCENT AUTO 1 % (0-1); LYMPHOCYTES ABSOLUTE AUTO 0.92 K/mm3 (0.84-5.20); LYMPHOCYTES PERCENT AUTO 10 % (21-46); MONOCYTES ABSOLUTE AUTO 0.86 K/mm3 (0.16-1.47); MONOCYTES PERCENT AUTO 9 % (4-13); Mean Corpuscular HGB 31.7 pg (26.0-34.0); Mean Corpuscular HGB Conc 34.4 g/dL (31.5-36.5); Mean Corpuscular Volume 92 fL (80-100); Mean Platelet Volume 9.3 fL (9.1-12.4); NEUTROPHILS ABSOLUTE AUTO 7.32 K/mm3 (1.96-9.15); NEUTROPHILS PERCENT AUTO 79 % (41-73); Platelet Count 177 K/mm3 (150-400); RDW Coefficient Variation 15.6 % (11.7-14.2); RDW Standard Deviation 52.4 fL (35.1-46.3); Red Blood Cell Count 4.07 M/mm3 (3.80-5.20); White Blood Cell Count 9.25 K/mm3 (4.00-11.30)
[2022-04-07 12:55] LABS: Albumin, Blood 2.8 g/dL (3.4-5.0); Albumin/Globulin Ratio 0.8 (0.8-1.8); Bilirubin, Total 1.6 mg/dL (0.1-1.0); Bun/Creatinine Ratio 17.2 (12.0-20.0); Calcium, Blood 8.9 mg/dL (8.5-10.1); Creatinine, Blood 0.7 mg/dL (0.40-1.00); Globulin, Blood 3.4 g/dL (2.2-4.0); Magnesium, Blood 1.3 mg/dL (1.6-2.4); Potassium, Blood 3.8 mmol/L (3.5-5.5); Total Protein, Blood 6.2 g/dL (6.4-8.2)
== END 2022-04-07 13:09 | disposition left against medical advice (07) ==
LOC: ER 12:10
PROVIDERS: Physician Assistant
DX: R10.9 Unspecified abdominal pain (principal); Z79.899 Other long term (current) drug therapy; Z53.21 Procedure and treatment not carried out due to patient leaving prior to being seen by health care provider
CPT/HCPCS: 36415; 80053; 83735; 85025; 99283

== ENCOUNTER 2022-04-08 14:28 | Emergency (ER) | payer MEDICARE, OTHER ==
[~2022-04-08] VITALS: Ht 165.1 cm; Wt 68.0 kg
[2022-04-08 15:06] LABS: BASOPHILS ABSOLUTE AUTO 0.04 K/mm3 (0.00-0.23); BASOPHILS PERCENT AUTO 0 % (0-2); EOSINOPHILS PERCENT AUTO 0 % (0-6); Hematocrit 36.5 % (33.0-51.0); Hemoglobin 12.7 g/dL (11.5-16.0); IMMATURE GRAN ABSOLUTE AUTO 0.11 K/mm3 (0.00-0.10); IMMATURE GRAN PERCENT AUTO 1 % (0-1); LYMPHOCYTES PERCENT AUTO 9 % (21-46); MONOCYTES ABSOLUTE AUTO 0.87 K/mm3 (0.16-1.47); MONOCYTES PERCENT AUTO 9 % (4-13); Mean Corpuscular HGB 32.1 pg (26.0-34.0); Mean Corpuscular HGB Conc 34.8 g/dL (31.5-36.5); Mean Corpuscular Volume 92 fL (80-100); Mean Platelet Volume 10.1 fL (9.1-12.4); NEUTROPHILS ABSOLUTE AUTO 8.22 K/mm3 (1.96-9.15); NEUTROPHILS PERCENT AUTO 81 % (41-73); Platelet Count 200 K/mm3 (150-400); RDW Coefficient Variation 15.7 % (11.7-14.2); RDW Standard Deviation 52.8 fL (35.1-46.3); Red Blood Cell Count 3.96 M/mm3 (3.80-5.20); White Blood Cell Count 10.14 K/mm3 (4.00-11.30)
[2022-04-08 15:38] LABS: Albumin, Blood 2.8 g/dL (3.4-5.0); Albumin/Globulin Ratio 0.8 (0.8-1.8); Bilirubin, Total 1.7 mg/dL (0.1-1.0); Bun/Creatinine Ratio 22.9 (12.0-20.0); Calcium, Blood 9.3 mg/dL (8.5-10.1); Creatinine, Blood 0.74 mg/dL (0.40-1.00); Globulin, Blood 3.5 g/dL (2.2-4.0); Magnesium, Blood 1.1 mg/dL (1.6-2.4); Potassium, Blood 3.4 mmol/L (3.5-5.5); Total Protein, Blood 6.3 g/dL (6.4-8.2)
--- NOTE | 2022-04-08 19:29 | NUR ---
Pt is a 77 year old female who appears her stated age. She has been nauseated x's approx 1 month, suffering first from pneumonia, then a bout with Covid-19. Her states she was eating poorly with the pneumonia, but since Covid has stopped eating and/or drinking. In the past 24 hours she has drunk 1 8oz glass of water and 1 cup of pudding. She states she wants to live, states they are raising their 12 year old great grandson and she doesn't want to miss out on that. However, she shrugs when I ask her if she can begin to try eating small frequent meals t/o the day. She does appear to understand this can be fatal if she doesn't begin to eat. She denies depression. They are not interested in hospice at this time, but would like to try outpatient Palliative Care. I will make the referral, and plan to check on them early next week.
== END 2022-04-08 20:13 | disposition home or self-care (01) ==
LOC: ER 14:28
PROVIDERS: Physician Assistant
DX: E83.42 Hypomagnesemia (principal); R62.7 Adult failure to thrive; Z68.25 Body mass index [BMI] 25.0-25.9, adult; M06.9 Rheumatoid arthritis, unspecified; I10 Essential (primary) hypertension; M10.9 Gout, unspecified; K21.9 Gastro-esophageal reflux disease without esophagitis; J45.909 Unspecified asthma, uncomplicated; I25.10 Atherosclerotic heart disease of native coronary artery without angina pectoris; E78.5 Hyperlipidemia, unspecified; Z88.8 Allergy status to other drugs, medicaments and biological substances; Z88.2 Allergy status to sulfonamides; Z88.1 Allergy status to other antibiotic agents; Z88.5 Allergy status to narcotic agent; Z79.899 Other long term (current) drug therapy
CPT/HCPCS: 36415; 80053; 83690; 83735; 85025; 99283-25; J2765; J3475; J7030; J7120

== ENCOUNTER → 2023-02-13 | Outpatient (CLI) | payer MEDICARE, OTHER ==
[2023-02-17 07:27] LABS: Stool Occult Blood Guaiac 1 Neg (Neg)
== END | disposition home or self-care (01) ==
LOC: LAB SHORT 11:25 → LAB 11:25 → LAB FUT 02-11 07:25 → EDSTATUS 02-11 07:25
PROVIDERS: Internal Medicine
DX: D64.9 Anemia, unspecified (principal)
CPT/HCPCS: 82272

== ENCOUNTER 2023-07-18 16:57 | Emergency (ER) | payer MEDICARE, OTHER ==
[~2023-07-18] VITALS: Ht 165.1 cm; Wt 69.4 kg
[2023-07-18 17:33] LABS: BASOPHILS ABSOLUTE AUTO 0.05 K/mm3 (0.00-0.23); BASOPHILS PERCENT AUTO 0 % (0-2); EOSINOPHILS PERCENT AUTO 0 % (0-6); Hematocrit 38.6 % (33.0-51.0); Hemoglobin 13.3 g/dL (11.5-16.0); IMMATURE GRAN ABSOLUTE AUTO 0.13 K/mm3 (0.00-0.10); IMMATURE GRAN PERCENT AUTO 1 % (0-1); LYMPHOCYTES ABSOLUTE AUTO 1.24 K/mm3 (0.84-5.20); LYMPHOCYTES PERCENT AUTO 6 % (21-46); MONOCYTES ABSOLUTE AUTO 2.04 K/mm3 (0.16-1.47); MONOCYTES PERCENT AUTO 10 % (4-13); Mean Corpuscular HGB 33.3 pg (26.0-34.0); Mean Corpuscular HGB Conc 34.5 g/dL (31.5-36.5); Mean Corpuscular Volume 97 fL (80-100); Mean Platelet Volume 9.2 fL (9.1-12.4); NEUTROPHILS PERCENT AUTO 83 % (41-73); Platelet Count 250 K/mm3 (150-400); RDW Coefficient Variation 13.7 % (11.7-14.2); RDW Standard Deviation 48.5 fL (35.1-46.3); White Blood Cell Count 20.46 K/mm3 (4.00-11.30)
[2023-07-18 17:56] LABS: Albumin, Blood 2.7 g/dL (3.4-5.0); Albumin/Globulin Ratio 0.8 (0.8-1.8); Bilirubin, Total 1.1 mg/dL (0.1-1.0); Bun/Creatinine Ratio 21.3 (12.0-20.0); Calcium, Blood 9.7 mg/dL (8.5-10.1); Creatinine, Blood 0.99 mg/dL (0.40-1.00); Globulin, Blood 3.6 g/dL (2.2-4.0); Potassium, Blood 3.9 mmol/L (3.5-5.5); Total Protein, Blood 6.3 g/dL (6.4-8.2)
[2023-07-18 19:48] LABS: Influenza A, PCR NEGATIVE (NEGATIVE); Influenza B, PCR NEGATIVE (NEGATIVE); Resp Syncytial Virus, PCR NEGATIVE (NEGATIVE); SARS-Cov-2 (COVID-19) PCR, MMC NEGATIVE (NEGATIVE)
[2023-07-18] MEDS ORDERED: ALBU8HFA2 INH (19:55)
[2023-07-18] MEDS ORDERED: CYCL10 (19:59)
[2023-07-18] MEDS ORDERED: SPIRONOLACTONE1 EACH PO (20:00)
[2023-07-18] MEDS ORDERED: FOLI1 PO (20:00)
[2023-07-18] MEDS ORDERED: LOSARTAN POTASS25 M2 PO (20:01)
[2023-07-18] MEDS ORDERED: TOPROL XL50 M1 PO (20:02)
[2023-07-18] MEDS ORDERED: PRED5 PO (20:03)
[2023-07-18] MEDS ORDERED: PREGABALIN75 MG PO (20:03)
[2023-07-18] MEDS ORDERED: ELIQUIS5 M3 PO (20:04)
[2023-07-18 21:45] VITALS: BP 131/57
== END 2023-07-18 22:00 | disposition home or self-care (01) ==
LOC: ER 16:57
PROVIDERS: Emergency Medicine; Student in an Organized Health Care Education/Training Program
DX: R19.7 Diarrhea, unspecified (principal); I10 Essential (primary) hypertension; Z88.2 Allergy status to sulfonamides; Z88.5 Allergy status to narcotic agent; Z88.8 Allergy status to other drugs, medicaments and biological substances; Z79.899 Other long term (current) drug therapy
CPT/HCPCS: 0241U; 74177; 80053; 85025; 93005; 93010; 99285-25; Q9967

== ENCOUNTER → 2023-11-09 | Outpatient (CLI) | payer MEDICARE ==
[~2023-11-09] MED LIST changes: +ALBU8HFA2 INH; +ELIQUIS5 M3 PO; +PREGABALIN75 MG PO; +TOPROL XL50 M1 PO
[2023-11-09 17:09] LABS: Appearance, Urine Clear (Clear); Bilirubin, Urine Neg (Neg); Blood, Urine Neg (Neg); Color, Urine Yellow (P-Yellow); Glucose Qualitative, Urine Neg (Neg); Ketones, Urine Neg (Neg); Leukocyte Esterase, Urine Neg (Neg); Nitrite, Urine Neg (Neg); Protein, Urine Neg (Neg); Specific Gravity, Urine 1.025 (1.003-1.022); Urobilinogen, Urine NORM (Normal)
== END | disposition home or self-care (01) ==
LOC: LAB 13:00 → LAB SHORT 13:00
PROVIDERS: Internal Medicine
DX: E83.42 Hypomagnesemia (principal); R79.89 Other specified abnormal findings of blood chemistry
CPT/HCPCS: 81003

== ENCOUNTER 2024-07-04 12:38 | Inpatient (IN) | payer MEDICARE, OTHER ==
[~2024-07-04] VITALS: Ht 165.1 cm; Wt 59.0 kg
[2024-07-04] MEDS ORDERED: Ipratropium/Albuterol SulF 2.5-0.5MG/3 ML Amp INH ONE (13:55)
[2024-07-04] MEDS ORDERED: Ondansetron HCl 2 MG / ML 2ML Vial IV ONE (14:20)
[2024-07-04 14:26] LABS: BASOPHILS ABSOLUTE AUTO 0.04 K/mm3 (0.00-0.23); BASOPHILS PERCENT AUTO 0 % (0-2); EOSINOPHILS ABSOLUTE AUTO 0.07 K/mm3 (0.00-0.68); EOSINOPHILS PERCENT AUTO 1 % (0-6); Hematocrit 47.8 % (33.0-51.0); Hemoglobin 16.4 g/dL (11.5-16.0); IMMATURE GRAN ABSOLUTE AUTO 0.07 K/mm3 (0.00-0.10); IMMATURE GRAN PERCENT AUTO 1 % (0-1); LYMPHOCYTES ABSOLUTE AUTO 0.41 K/mm3 (0.84-5.20); LYMPHOCYTES PERCENT AUTO 3 % (21-46); MONOCYTES ABSOLUTE AUTO 1.28 K/mm3 (0.16-1.47); MONOCYTES PERCENT AUTO 9 % (4-13); Mean Corpuscular HGB 31.4 pg (26.0-34.0); Mean Corpuscular HGB Conc 34.3 g/dL (31.5-36.5); Mean Corpuscular Volume 92 fL (80-100); NEUTROPHILS ABSOLUTE AUTO 13.24 K/mm3 (1.96-9.15); NEUTROPHILS PERCENT AUTO 88 % (41-73); Platelet Count 140 K/mm3 (150-400); RDW Coefficient Variation 14.7 % (11.7-14.2); RDW Standard Deviation 49.1 fL (35.1-46.3); Red Blood Cell Count 5.22 M/mm3 (3.80-5.20); White Blood Cell Count 15.11 K/mm3 (4.00-11.30)
[2024-07-04 14:48] LABS: Albumin, Blood 3.9 g/dL (3.4-5.0); Albumin/Globulin Ratio 1.1 (0.8-1.8); Bilirubin, Total 0.5 mg/dL (0.1-1.0); Bun/Creatinine Ratio 18.7 (12.0-20.0); Calcium, Blood 9.4 mg/dL (8.5-10.1); Creatinine, Blood 1.34 mg/dL (0.40-1.00); Globulin, Blood 3.4 g/dL (2.2-4.0); Total Protein, Blood 7.3 g/dL (6.4-8.2)
[2024-07-04 14:58] LABS: Influenza B, PCR NEGATIVE (NEGATIVE); Resp Syncytial Virus, PCR NEGATIVE (NEGATIVE); SARS-Cov-2 (COVID-19) PCR, MMC NEGATIVE (NEGATIVE)
[2024-07-04 14:59] LABS: Influenza A, PCR POSITIVE (NEGATIVE)
[2024-07-04] MEDS ORDERED: Oseltamivir Phosphate 75 MG Cap PO ONE (15:05)
[2024-07-04] MEDS ORDERED: Aspirin 325 MG Tab PO ONE (15:10)
[2024-07-04] MEDS ORDERED: NS 500 ML IV SCH (15:45)
[2024-07-04] MEDS ORDERED: FLU VACC TS2024-25(6MOS UP)/PF 45 MCG/0.5 ML SYRINGE IM SCH (16:15)
[2024-07-04] MEDS ORDERED: Ibuprofen 400 MG Tab PO PRN (16:15)
[2024-07-04] MEDS ORDERED: Lactated Ringer's 1,000 ML IV SCH (16:20)
[2024-07-04] MEDS ORDERED: Ondansetron HCl 2 MG / ML 2ML Vial IV PRN (16:20)
[2024-07-04] MEDS ORDERED: CefTRIAXone Sodium 1,000 MG in NS 100 ML IV SCH (17:00)
[2024-07-04 18:05] VITALS: BP 108/55
[2024-07-04] MEDS ORDERED: Doxycycline Hyclate 100 MG TAB PO SCH (21:00)
[2024-07-04] MEDS ORDERED: Lactobacil 2-S.Thermo-Bifido 1 1 Cap PO SCH (21:00)
[2024-07-04] MEDS ORDERED: Oseltamvir Phosphate 30 MG Cap PO SCH (21:00)
[2024-07-05] MEDS ORDERED: Mometasone/Formoterol MDI 200/5 mcg 13 GM INH SCH (04:30)
[2024-07-05] MEDS ORDERED: Albuterol 2.5 MG/3 ML VIAL INH PRN (04:30)
[2024-07-05 04:36] VITALS: BP 121/46
[2024-07-05 05:10] LABS: Hemoglobin 12.9 g/dL (11.5-16.0); Mean Corpuscular HGB 31.6 pg (26.0-34.0); Mean Corpuscular HGB Conc 33.9 g/dL (31.5-36.5); Mean Corpuscular Volume 93 fL (80-100); Mean Platelet Volume 9.8 fL (9.1-12.4); Platelet Count 120 K/mm3 (150-400); RDW Coefficient Variation 14.8 % (11.7-14.2); RDW Standard Deviation 50.4 fL (35.1-46.3); Red Blood Cell Count 4.08 M/mm3 (3.80-5.20); White Blood Cell Count 14.02 K/mm3 (4.00-11.30)
[2024-07-05 05:33] LABS: Albumin, Blood 2.9 g/dL (3.4-5.0); Anion Gap 13 mmol/L (3-11); Blood Urea Nitrogen 29 mg/dL (8-24); Bun/Creatinine Ratio 21.5 (12.0-20.0); CO2, Blood 25 mmol/L (21-32); Calcium, Blood 8.5 mg/dL (8.5-10.1); Chloride, Blood 99 mmol/L (98-108); Creatinine, Blood 1.35 mg/dL (0.40-1.00); Glomerular Filtration Rate 40 (60-); Glucose, Blood 78 mg/dL (70-99); Phosphorus, Blood 3.7 mg/dL (2.5-4.9); Potassium, Blood 3.9 mmol/L (3.5-5.5); Sodium, Blood 133 mmol/L (136-145)
--- NOTE | 2024-07-05 05:49 | NUR ---
SHIFT SUMMARY; PATIENT SLEPT IN LONG INTERVALS. REMAINS IN DROPLET ISOLATION. TWO REPORTS OF [facility] LABS, [facility] OF [facility] AND [facility] OF [facility]2 NOT CALLED TO D/T TRENDING DOWNWARD. LR/75/HR INFUSING ALL NIGHT. O2/2L/NC.
[2024-07-05 07:14] VITALS: BP 114/54
[2024-07-05] MEDS ORDERED: Aspirin 81 MG Chew PO SCH (09:00)
[2024-07-05] MEDS ORDERED: Enoxaparin 40 MG/0.4 ML SYR SC SCH (09:00)
[2024-07-05] MEDS ORDERED: Cholecalciferol 1000 Unit Tablet (=25MCG) PO SCH (09:00)
[2024-07-05] MEDS ORDERED: NS 250 ML IV PRN (09:50)
--- NOTE | 2024-07-05 11:54 | NUR ---
NOTE NOTICED PT HAD LACTIC ACID DRAW ON 07-04-24 AND IT WAS 4.7. PT LACTIC ACID WAS DRAWN THAT EVENING AND WAS 3.2. CALLED DR. CASTRO AND ASKED IF PT WANTED TO ORDER MORE FLUIDS. DR. CASTRO SAID LACTIC IS TRENDING DOWN AND IF PATIENT IS TOLERATING FLUIDS ORALLY THAT MORE FLUIDS DOESN'T NEED TO BE ORDERED THROUGH IV. PT REPORTED WILL ALSO BRING IN MED LIST TO BE RECONCILED.
[2024-07-05] MEDS ORDERED: MAGCHL64ER PO (13:55)
[2024-07-05] MEDS ORDERED: ZENPEP DR 40,01 EACH PO (13:56)
[2024-07-05] MEDS ORDERED: Acetaminophen325 M1 PO (13:58)
[2024-07-05] MEDS ORDERED: Tessalon200 MG PO (13:59)
[2024-07-05] MEDS ORDERED: B-12500 MC2 PO (14:00)
[2024-07-05] MEDS ORDERED: DICY20 PO (14:02)
[2024-07-05] MEDS ORDERED: SPIR25 PO (14:03)
[2024-07-05] MEDS ORDERED: LEFL20 PO (14:03)
[2024-07-05] MEDS ORDERED: LIDO700A20 TOP (14:04)
[2024-07-05] MEDS ORDERED: NITR.4SL SL (14:05)
[2024-07-05] MEDS ORDERED: META800 PO (14:05)
[2024-07-05] MEDS ORDERED: ONDA4 PO (14:06)
[2024-07-05] MEDS ORDERED: PANTOPRAZOLE SO40 M1 PO (14:06)
[2024-07-05] MEDS ORDERED: PROM25 PO (14:07)
[2024-07-05] MEDS ORDERED: SYMBICORT 160-4.6 GM INH (14:08)
[2024-07-05] MEDS ORDERED: ALPR.5 PO (14:10)
[2024-07-05] MEDS ORDERED: ALPRAZolam 0.5 MG Tab PO PRN (16:00)
[2024-07-05] MEDS ORDERED: Benzonatate 100 MG Cap PO PRN (16:05)
[2024-07-05 16:30] VITALS: BP 134/57
[2024-07-05] MEDS ORDERED: Acetaminophen 325 MG TABLET PO PRN (16:35)
[2024-07-05] MEDS ORDERED: Amylase/Lipase/Protease DR 20,000 PO SCH (17:30)
--- NOTE | 2024-07-05 19:09 | NUR ---
SHIFT SUMMARY PT A&OX4. PT ADMITTED DUE TO ACUTE HYPOXEMIC RESP FAILURE. PT ON ROOM AIR. SPO2, 97%. REPORTED SOME BACK PAIN, MEDICATED PER EMAR. CALLED PT PCP TO VERIFY NO ALLERGY TO TYLENOL, PT REPORTED NO ALLERGY LIKE SYMPTOMS POST TYLENOL, AND REPORTED DECREASE IN PAIN. HAS OCCASIONAL COUGH, SELDOM PRODUCTIVE. PT AMULATES WITH FWW. MEDICATIONS WERE RECONCILED TODAY. FAMILY WAS AT BEDSIDE DURING SHIFT. BED AT LOWEST POSSIBLE POSITION, PT CALLS APPROPRIATE. CALL LIGHT IN REACH.
[2024-07-05 19:31] VITALS: BP 139/50
[2024-07-05] MEDS ORDERED: Metoprolol Succinate 50 MG TABCR PO SCH (21:00)
[2024-07-06 04:30] VITALS: BP 127/47
--- NOTE | 2024-07-06 04:31 | NUR ---
SHIFT SUMMARY; PATIENT SLEPT IN LONG INTERVALS. REMAINS IN DROPLET ISOLATION FOR FLU.DID NOT REQUIRE ANY PRN MEDS.
[2024-07-06 05:03] LABS: Hematocrit 33.6 % (33.0-51.0); Hemoglobin 11.4 g/dL (11.5-16.0); Mean Corpuscular HGB 31.3 pg (26.0-34.0); Mean Corpuscular HGB Conc 33.9 g/dL (31.5-36.5); Mean Corpuscular Volume 92 fL (80-100); Mean Platelet Volume 10.7 fL (9.1-12.4); Platelet Count 119 K/mm3 (150-400); RDW Coefficient Variation 14.7 % (11.7-14.2); RDW Standard Deviation 49.3 fL (35.1-46.3); Red Blood Cell Count 3.64 M/mm3 (3.80-5.20); White Blood Cell Count 9.18 K/mm3 (4.00-11.30)
[2024-07-06 05:48] LABS: Albumin, Blood 2.8 g/dL (3.4-5.0); Anion Gap 10 mmol/L (3-11); Blood Urea Nitrogen 29 mg/dL (8-24); Bun/Creatinine Ratio 27.4 (12.0-20.0); CO2, Blood 26 mmol/L (21-32); Calcium, Blood 8.2 mg/dL (8.5-10.1); Chloride, Blood 98 mmol/L (98-108); Creatinine, Blood 1.06 mg/dL (0.40-1.00); Glomerular Filtration Rate 54 (60-); Glucose, Blood 99 mg/dL (70-99); Magnesium, Blood 1.8 mg/dL (1.6-2.4); Phosphorus, Blood 2.7 mg/dL (2.5-4.9); Potassium, Blood 3.4 mmol/L (3.5-5.5); Sodium, Blood 131 mmol/L (136-145)
[2024-07-06] MEDS ORDERED: Pantoprazole Sodium 40 MG Tab PO SCH (06:00)
[2024-07-06 07:37] VITALS: BP 112/50
[2024-07-06] MEDS ORDERED: Potassium Chloride 20 MEQ TabCR PO ONE (08:00)
[2024-07-06] MEDS ORDERED: Apixaban 5 MG Tab PO SCH (09:00)
[2024-07-06] MEDS ORDERED: PredniSONE 5 MG Tab PO SCH (09:00)
[2024-07-06] MEDS ORDERED: Pregabalin 75 MG Cap PO SCH (09:00)
[2024-07-06] MEDS ORDERED: Losartan Potassium 25 MG Tab PO SCH (09:00)
[2024-07-06] MEDS ORDERED: PARoxetine HCl 20 MG Tab PO SCH (09:00)
[2024-07-06] MEDS ORDERED: Spironolactone 25 MG Tab PO SCH (09:00)
[2024-07-06] MEDS ORDERED: Allopurinol 300 MG Tab PO SCH (09:00)
[2024-07-06] MEDS ORDERED: Leflunomide 10 MG TABLET PO SCH (09:00)
[2024-07-06] MEDS ORDERED: OSEL75CA PO (12:00)
[2024-07-06] MEDS ORDERED: DOXYCYCLINE HYC50 M1 PO (12:00)
[2024-07-06] MEDS ORDERED: POTA10T PO (12:01)
--- NOTE | 2024-07-06 12:39 | NUR ---
DISCHARGE NOTE PT A&OX4. PT ADMITTED DUE TO ACUTE HYPOXEMIC RESP FAILURE. PT ON ROOM AIR. PT SPO2 IS 93%. WENT OVER DISCHARGE MEDS AND INSTRUCTIONS. PT REPORTED UNDERSTANDING TO FOLLOW UP WITH PCP. PT MEDS FAXED TO PREFERRED PHARMACY. PT IV D/C. PT HAS SELDOM NONPRODUCTIVE COUGH. PT USES FWW. PT WENT WITH BELONGINGS. PT ESCORTED BY WHEELCHAIR TO PERSONAL VEHICLE BY STEREOTYPE MOLDER.
== END 2024-07-06 12:37 | disposition home or self-care (01) | DRG 193 ==
LOC: ER 12:38 → MEDS 17:41 → ENPENDDIS 07-06 10:55 → MEDS 07-06 12:37
PROVIDERS: Emergency Medicine; ADMIT Internal Medicine
DX: J10.01 Influenza due to other identified influenza virus with the same other identified influenza virus pneumonia (principal); J96.21 Acute and chronic respiratory failure with hypoxia; E87.1 Hypo-osmolality and hyponatremia; M06.9 Rheumatoid arthritis, unspecified; M32.9 Systemic lupus erythematosus, unspecified; I10 Essential (primary) hypertension; M10.9 Gout, unspecified; M79.7 Fibromyalgia; K21.9 Gastro-esophageal reflux disease without esophagitis; G89.29 Other chronic pain; M51.9 Unspecified thoracic, thoracolumbar and lumbosacral intervertebral disc disorder; J45.909 Unspecified asthma, uncomplicated; I25.10 Atherosclerotic heart disease of native coronary artery without angina pectoris; E78.5 Hyperlipidemia, unspecified; E86.0 Dehydration; Z88.8 Allergy status to other drugs, medicaments and biological substances; Z88.2 Allergy status to sulfonamides; Z88.6 Allergy status to analgesic agent; Z88.1 Allergy status to other antibiotic agents; Z88.5 Allergy status to narcotic agent; Z79.02 Long term (current) use of antithrombotics/antiplatelets; Z79.899 Other long term (current) drug therapy; Z79.52 Long term (current) use of systemic steroids; Z90.49 Acquired absence of other specified parts of digestive tract; Z90.710 Acquired absence of both cervix and uterus; Z79.01 Long term (current) use of anticoagulants
CPT/HCPCS: 0241U; 36415; 71045; 80053; 80069; 83605; 83690; 83735; 83880; 84145; 84484; 85025; 85027; 87040; 93005; 93010; 94640; 94664; 94760; 96374; 99285-25; A9270; J0696; J1650; J2405; J7030; J7120; J7512

== ENCOUNTER 2024-07-19 06:45 | Inpatient (IN) | payer MEDICARE ==
[~2024-07-19] VITALS: Ht 165.1 cm; Wt 58.5 kg
[~2024-07-19 06:45] MED LIST changes: +ALPR.5 PO; +Acetaminophen325 M1 PO; +B-12500 MC2 PO; +DICY20 PO; +DOXYCYCLINE HYC50 M1 PO; +LEFL20 PO; +MAGCHL64ER PO; +ONDA4 PO; +OSEL75CA PO; +PANTOPRAZOLE SO40 M1 PO; +SYMBICORT 160-4.6 GM INH; +ZENPEP DR 40,01 EACH PO
[2024-07-19 07:43] LABS: BASOPHILS ABSOLUTE AUTO 0.04 K/mm3 (0.00-0.23); BASOPHILS PERCENT AUTO 0 % (0-2); EOSINOPHILS PERCENT AUTO 0 % (0-6); Hemoglobin 12.8 g/dL (11.5-16.0); IMMATURE GRAN ABSOLUTE AUTO 0.11 K/mm3 (0.00-0.10); IMMATURE GRAN PERCENT AUTO 1 % (0-1); LYMPHOCYTES ABSOLUTE AUTO 0.86 K/mm3 (0.84-5.20); LYMPHOCYTES PERCENT AUTO 5 % (21-46); MONOCYTES PERCENT AUTO 12 % (4-13); Mean Corpuscular HGB 31.4 pg (26.0-34.0); Mean Corpuscular HGB Conc 34.6 g/dL (31.5-36.5); Mean Corpuscular Volume 91 fL (80-100); Mean Platelet Volume 9.6 fL (9.1-12.4); NEUTROPHILS ABSOLUTE AUTO 13.43 K/mm3 (1.96-9.15); NEUTROPHILS PERCENT AUTO 82 % (41-73); Platelet Count 278 K/mm3 (150-400); RDW Coefficient Variation 14.3 % (11.7-14.2); RDW Standard Deviation 47.5 fL (35.1-46.3); Red Blood Cell Count 4.08 M/mm3 (3.80-5.20); White Blood Cell Count 16.34 K/mm3 (4.00-11.30)
[2024-07-19 07:59] LABS: Albumin, Blood 3.2 g/dL (3.4-5.0); Albumin/Globulin Ratio 0.9 (0.8-1.8); Bilirubin, Total 1.5 mg/dL (0.1-1.0); Bun/Creatinine Ratio 23.1 (12.0-20.0); Calcium, Blood 9.5 mg/dL (8.5-10.1); Creatinine, Blood 0.91 mg/dL (0.40-1.00); Globulin, Blood 3.4 g/dL (2.2-4.0); Potassium, Blood 3.3 mmol/L (3.5-5.5); Total Protein, Blood 6.6 g/dL (6.4-8.2)
[2024-07-19] MEDS ORDERED: Ondansetron HCl 2 MG / ML 2ML Vial IV ONE (08:00)
[2024-07-19] MEDS ORDERED: NS 1,000 ML IV SCH ×3 (08:00→11:40)
[2024-07-19] MEDS ORDERED: Metoclopramide HCl 5MG / ML 2ML Vial IV ONE (09:00)
[2024-07-19] MEDS ORDERED: Lactated Ringer's 1,000 ML IV ONE (09:00)
[2024-07-19] MEDS ORDERED: Ketorolac Tromethamine 30mg Vial IV ONE (09:00)
[2024-07-19 09:29] LABS: Source, Urine Clean Catch
[2024-07-19 09:37] LABS: Appearance, Urine Hazy (Clear); Bilirubin, Urine Neg (Neg); Blood, Urine 2+ (Neg); Color, Urine Yellow (P-Yellow); Glucose Qualitative, Urine Neg (Neg); Ketones, Urine 3+ (Neg); Leukocyte Esterase, Urine 2+ (Neg); Nitrite, Urine Neg (Neg); Protein, Urine 2+ (Neg); Urobilinogen, Urine 1+ (Normal)
[2024-07-19] MEDS ORDERED: Potassium Chl 20MEQ/Water100ML 100 ML IV SCH (09:40)
[2024-07-19] MEDS ORDERED: Magnesium Sulf 2 GM/Water 50ML 50 ML IV ONE (09:40)
[2024-07-19 10:12] LABS: White Blood Cells, Urine 50-100 /hpf (0-5)
[2024-07-19 10:13] LABS: Bacteria Many /hpf; Mucus Heavy (0-Heavy); Red Blood Cells, Urine 0-2 /hpf (0-2); Squamous Epithelial Cells Few /hpf (Few); Yeast/Fungi Urine Many /hpf
[2024-07-19] MEDS ORDERED: Piperacillin/Tazobactam Sod 3.375 GM in NS 100 ML IV ONE (10:25)
[2024-07-19] MEDS ORDERED: Benzonatate 100 MG Cap PO PRN (11:35)
[2024-07-19] MEDS ORDERED: Albuterol HFA200 ACT/6.7 GM INH INH PRN (11:40)
[2024-07-19] MEDS ORDERED: Ondansetron HCl 2 MG / ML 2ML Vial IV PRN (11:40)
[2024-07-19] MEDS ORDERED: ALPRAZolam 0.5 MG Tab PO PRN (11:40)
[2024-07-19] MEDS ORDERED: FLU VACC TS2024-25(6MOS UP)/PF 45 MCG/0.5 ML SYRINGE IM SCH (11:45)
[2024-07-19] MEDS ORDERED: Acetaminophen 325 MG TABLET PO PRN (11:45)
[2024-07-19] MEDS ORDERED: Nitroglycerin 0.4 MG SUBL SL PRN (11:45)
[2024-07-19] MEDS ORDERED: Cyclobenzaprine HCl 10 MG Tab PO PRN (11:45)
[2024-07-19] MEDS ORDERED: Ondansetron 4 MG TAB PO PRN (11:45)
[2024-07-19] MEDS ORDERED: Lidocaine 4% 1 Patch TOP PRN (11:55)
[2024-07-19] MEDS ORDERED: Mometasone/Formoterol MDI 200/5 mcg 13 GM INH SCH (11:55)
[2024-07-19] MEDS ORDERED: Amylase/Lipase/Protease DR 20,000 PO SCH (12:30)
[2024-07-19] MEDS ORDERED: PredniSONE 20 MG Tab PO SCH (15:00)
[2024-07-19 17:58] VITALS: BP 145/70
--- NOTE | 2024-07-19 19:26 | NUR ---
ADMISSION PATIENT ADMITTED TO MEDICAL FLOOR. PATIENT ALERT AND INTERACTIVE. DENIES NAUSEA. PATIENT FORGETFUL BUT EASILY ORIENTED. FAMILY AT BEDSIDE. ADMISSION PROCESS DONE. PATIENT DOES NOT RECOLLECT HOME MEDS. LIST IN PURSE AT HOME.
[2024-07-19] MEDS ORDERED: Dicyclomine HCl 20 MG Tab PO SCH (21:00)
[2024-07-19] MEDS ORDERED: Lactobacil 2-S.Thermo-Bifido 1 1 Cap PO SCH (21:00)
[2024-07-19] MEDS ORDERED: Metoprolol Succinate 50 MG TABCR PO SCH (21:00)
[2024-07-19] MEDS ORDERED: Apixaban 5 MG Tab PO SCH (21:00)
--- NOTE | 2024-07-20 03:39 | NUR ---
MOP MACHINE OPERATOR SUMMARY VSS. PLACED ON CONTACT PRECAUTIONS UNTIL STOOL SPECIMEN OBTAINED AND LAB RULE OUT POSSIBLE C-DIFF. ALERT AND ORIENTED. COOPERATIVE WITH CARE. SKIN OF HANDS ND FEET PAINFUL TO TOUCH. NOTE SWELLING OF EXTREMITIES AND SOME DRYNESS OF SKIN. LUNG SOUNDS CLEAR TO AUSCULTATION. IVF OF NS INFUSING ORDERED. POOR APPEITE, REFUSED MOST OF DINNER. HAS BEEN RESTING QUIETLY WITH FEW INTERRUPTIONS. ABLE TO REPOSITION SELF IN BED WITH LITTLE ASSIST. CALL LIGHT IN REACH, RAILS UP X 2 AND BED IN LOW POSITION FOR SAFEY. WILL CONTINUE TO MONITOR.
[2024-07-20 04:53] VITALS: BP 137/65
[2024-07-20 05:15] LABS: Hematocrit 30.8 % (33.0-51.0); Hemoglobin 10.2 g/dL (11.5-16.0); Mean Corpuscular HGB 30.8 pg (26.0-34.0); Mean Corpuscular HGB Conc 33.1 g/dL (31.5-36.5); Mean Corpuscular Volume 93 fL (80-100); Mean Platelet Volume 9.7 fL (9.1-12.4); Platelet Count 207 K/mm3 (150-400); RDW Coefficient Variation 14.6 % (11.7-14.2); RDW Standard Deviation 49.2 fL (35.1-46.3); Red Blood Cell Count 3.31 M/mm3 (3.80-5.20)
[2024-07-20 05:37] LABS: Bun/Creatinine Ratio 27.3 (12.0-20.0); Calcium, Blood 8.1 mg/dL (8.5-10.1); Creatinine, Blood 0.84 mg/dL (0.40-1.00); Potassium, Blood 4.1 mmol/L (3.5-5.5)
[2024-07-20] MEDS ORDERED: Pantoprazole Sodium 40 MG Tab PO SCH (06:00)
[2024-07-20 08:01] VITALS: BP 145/73
[2024-07-20] MEDS ORDERED: PredniSONE 20 MG Tab PO SCH (09:00)
[2024-07-20] MEDS ORDERED: Folic Acid 1 MG TAB PO SCH (09:00)
[2024-07-20] MEDS ORDERED: Allopurinol 300 MG Tab PO SCH (09:00)
[2024-07-20] MEDS ORDERED: Pregabalin 75 MG Cap PO SCH (09:00)
[2024-07-20] MEDS ORDERED: CefTRIAXone Sodium 1,000 MG in NS 100 ML IV SCH (09:00)
[2024-07-20] MEDS ORDERED: Losartan Potassium 25 MG Tab PO SCH (09:00)
[2024-07-20] MEDS ORDERED: PARoxetine HCl 20 MG Tab PO SCH (09:00)
[2024-07-20 15:40] VITALS: BP 136/64
--- NOTE | 2024-07-20 17:55 | NUR ---
SHIFT SUMMARY PATIENT ALERT AND INTERACTIVE. PATIENT CONTINUES TO HAVE A POOR APPETITE. NO DIARRHEA. TOLERATING SMALL AMOUNTS OF FLUIDS AND FOOD STUFF. MEDICATED X1 FOR NAUSEA. PATIENT STATES THAT HANDS AND FEET LOOK BETTER AND FEEL BETTER THIS EVENING. FAMILY AT BEDSIDE THROUGHOUT THE DAY. PATIENT UP TO CHAIR X1 AND COMMODE NEEDED. PATIENT ABLE TO ONLY PIVOT TRANSFER.
[2024-07-20 19:29] VITALS: BP 125/56
[2024-07-21 03:23] VITALS: BP 108/52
--- NOTE | 2024-07-21 04:36 | NUR ---
WEEKLY SUMMARY PT ALERT ORIENTED ABLE TO VERBALIZE NEEDS REQUIRES 1 PERSON SBA TO GO TO THE COM[facility]. REMAINS ON ROCEPHIN QDAY FOR SEPTIC UTI. CONTINUES ON DROPLET ISOLATION PENDING A STOOL SAMPLE. PT STATED THAT SHE HAS HAD NO LOOSE STOOLS TO OBTAIN A SAMPLE. REMAINS ON NS AT 75 FOR THE LAST BAG. HER BILATERAL HANDS AND FEET CONTINUE TO BE RED AND PUFFY R/T ARTHRITIS. CONTINUES ON PREDNISONE WHICH SEEMS TO BE HELPING WITH THE SWELING VSS ON RA SATTING AT 98%. MEDICATED WITH TYLENOL WITH GOOD RELIF. RESTING IN BED AT THIS TIME WITH CALL LIGHT IN REACH
[2024-07-21 05:37] LABS: Bun/Creatinine Ratio 37.8 (12.0-20.0); Calcium, Blood 8.1 mg/dL (8.5-10.1); Creatinine, Blood 0.79 mg/dL (0.40-1.00); Potassium, Blood 3.9 mmol/L (3.5-5.5)
[2024-07-21 08:29] VITALS: BP 129/61
[2024-07-21] MEDS ORDERED: Cyanocobalamin 500 MCG Tab PO SCH (09:00)
[2024-07-21] MEDS ORDERED: TraMADol HCl 50 MG Tab PO PRN (11:00)
[2024-07-21 15:19] VITALS: BP 114/49
--- NOTE | 2024-07-21 17:57 | NUR ---
SHIFT SUMMARY PATIENT ABLE TO WORK WITH PT THIS SHIFT, AMBULATING WELL TO BATHROOM WITH FWW AND GAIT BELT. A/OX4. C/O 2/10 PAIN TO BILAT FEET AND BILAT HANDS D/T ARTHRITIS, DECLINED PAIN MEDICATIONS AND NON PHARM INTERVENTIONS. SKIN INTACT. ROOM AIR. TOLERATING IV ABX WELL. L HAND 1+EDEMA, L WRIST IV REMOVED AND LIMB ELEVATED. ABLE TO MAKE NEEDS KNOWN. CALL LIGHT IN REACH, CARES ONGOING.
[2024-07-21 21:07] VITALS: BP 130/66
[2024-07-21 23:46] VITALS: BP 140/54
--- NOTE | 2024-07-22 02:23 | NUR ---
ASSUMPTION OF CARE ASSUMED PT'S CARE AT 1900,BEDSIDE REPORT COMPLETED.PT SITTING AT THE EDGE OF THE BED EATING DINNER.PLAN OF CARE REVIEWED WITH PT.PT DENIES PAIN,DENIES NEEDS.CALL LIGHT AND PT'S ITEMS WITHIN REACH.WILL CONTINUE TO MONITOR.
[2024-07-22 04:12] VITALS: BP 117/57
--- NOTE | 2024-07-22 06:20 | NUR ---
PT HAS BEEN AWAKE MOST OT THE NIGHT,STATES THAT SHE SOMETIMES HAS A DIFFICULT TIME SLEEPING.PT IS SLEEPING SOUNDLY AT THIS TIME,EASILY AROUSABLE.PT DENIES PAIN,DENIES NEEDS AT THIS TIME.CALL LIGHT AND PT'S ITEMS WITHIN REACH.WILL REPORT TO INCOMING NURSE.
[2024-07-22] MEDS ORDERED: Prednisone10 MG PO (09:46)
--- NOTE | 2024-07-22 12:46 | NUR ---
SHIFT SUMMARY PATIENT DISCHARGED HOME TODAY WITH SPOUSE TO DRIVE. IV REMOVED WITHOUT COMPLICATION. DISCHARGE PACKET GIVEN AND REVIEWED, VERBALIZED UNDERSTANDING. UNABLE TO BRIM EDGE TRIMMER MEDS FROM [facility] TODAY, INFORMED DOC THAT SHE HAS ADEQUATE MEDS FOR TOMORROW DOSE OF PREDNISONE AND CONFIRMED.
== END 2024-07-22 11:45 | disposition home or self-care (01) | DRG 546 ==
LOC: ER 06:45 → ERHOLD 11:32 → MEDS 17:51
PROVIDERS: Student in an Organized Health Care Education/Training Program; ADMIT Internal Medicine
DX: M06.9 Rheumatoid arthritis, unspecified (principal); E87.20 Acidosis, unspecified; E83.42 Hypomagnesemia; K52.9 Noninfective gastroenteritis and colitis, unspecified; E86.0 Dehydration; E87.6 Hypokalemia; M32.9 Systemic lupus erythematosus, unspecified; M79.7 Fibromyalgia; G89.29 Other chronic pain; M54.9 Dorsalgia, unspecified; K58.9 Irritable bowel syndrome, unspecified; J45.909 Unspecified asthma, uncomplicated; K21.9 Gastro-esophageal reflux disease without esophagitis; K86.89 Other specified diseases of pancreas; I25.10 Atherosclerotic heart disease of native coronary artery without angina pectoris; M10.9 Gout, unspecified; I10 Essential (primary) hypertension; Z96.641 Presence of right artificial hip joint; Z79.01 Long term (current) use of anticoagulants; Z88.2 Allergy status to sulfonamides; Z88.5 Allergy status to narcotic agent; Z88.8 Allergy status to other drugs, medicaments and biological substances; Z79.52 Long term (current) use of systemic steroids; Z79.51 Long term (current) use of inhaled steroids
CPT/HCPCS: 36415; 71046; 74177; 80048; 80053; 81001; 83605; 83690; 83735; 84132; 84145; 85025; 85027; 87040; 87086; 93005; 93010; 94640; 94664; 94760; 96361; 96365-59; 96368; 96375; 97110; 97116; 97161; 97530; 99285-25; A9270; J0696; J1885; J2405; J2543; J2765; J3475; J3480; J7030; J7120; J7512; P9612; Q9967

== ENCOUNTER → 2024-08-16 | Outpatient (CLI) | payer MEDICARE, OTHER ==
[2024-08-16 09:31] LABS: Source, Urine Clean Catch
[2024-08-16 10:34] LABS: Appearance, Urine Clear (Clear); Bilirubin, Urine Neg (Neg); Blood, Urine Neg (Neg); Color, Urine Yellow (P-Yellow); Glucose Qualitative, Urine Neg (Neg); Ketones, Urine Neg (Neg); Leukocyte Esterase, Urine Neg (Neg); Nitrite, Urine Neg (Neg); Protein, Urine Neg (Neg); Specific Gravity, Urine 1.025 (1.003-1.022); Urobilinogen, Urine NORM (Normal)
== END | disposition home or self-care (01) ==
LOC: LAB 09:29 → LAB SHORT 09:29 → LAB FUT 07-26 10:15
PROVIDERS: Internal Medicine
DX: N39.0 Urinary tract infection, site not specified (principal)
CPT/HCPCS: 81003